=== PATIENT | female | born 1955 | race Caucasian/White ===

== ENCOUNTER 2019-03-29 13:11 | Emergency (ER) | payer SELFPAY ==
[2019-03-29 13:26] VITALS: BP 153/83; PULSE 108; RESP 20; TEMP 36.9; O2SAT 99
--- NOTE | 2019-03-29 13:31 | ED.GENADULT ---
HPI - General Adult General Chief complaint: Upper Respiratory Infection Stated complaint: congestion Time Seen by Provider: 03/29/19 13:31 Source: patient and RN notes reviewed Mode of arrival: ambulatory Limitations: no limitations History of Present Illness HPI narrative: This patient's had onset on 03/26/2019 of sinus symptoms with green nasal drainage and pressure above and below the eyes bilaterally. She is not really had a cough. She has had no chest pain no shortness of breath. She is not had any ear pain or drainage from the ears. There is been no nausea, no vomiting, no diarrhea. She has had no hematuria, no dysuria, and no pyuria. She has had no rashes. Has not been traveling. She has had no known exposure to anyone with strep throat, mono, influenza, bronchitis, pneumonia that she is aware of. He states that she does use CPAP. He states she has no history of asthma. Related Data Allergies Allergy/AdvReac Type Severity Reaction Status Date / Time Penicillins Allergy Unknown Rash Verified 03/29/19 13:33 Review of Systems Review of Systems: Narrative: CONSTITUTIONAL: Denies fever, chills, or sweats. Noncontributory except as pertains the past medical history and history of present illness. EYES: Denies visual changes, redness, or discharge. ENT: Denies rhinorrhea, congestion, sore throat, or otalgia. CARDIOVASCULAR: Denies chest pain, palpitations, or edema. RESPIRATORY: Denies cough or dyspnea. GASTROINTESTINAL: Denies abdominal pain, nausea, vomiting, or diarrhea. GENITOURINARY: Denies dysuria or hematuria. SKIN: Denies rash or itching. MUSCULOSKELETAL: Denies back pain, joint pain, or myalgia. NEUROLOGIC: Denies headache, numbness, or weakness. PSYCHIATRIC: Denies anxiety or depression. PMFSH Social History Social History Smoking status: Never smoker Alcohol intake: never Gender identity (if verbalized by the patient): Female Comments At time of signature, I have reviewed and agree with nursing past medical, surgical, social, and family history.Please see nursing chart for further information. There is no relevant family history pertinent to the presenting complaint. Exam Narrative: Exam Narrative: GENERAL: Well-appearing, well-nourished, and in no acute distress. HEAD: Normocephalic, atraumatic. There is no palpation tenderness over the frontal, maxillary, or mastoid sinus areas. EYES: PERRLA and EOMI. EARS: TMs are clear bilaterally and the canals are clear. NOSE: Nares are edematous with purulent rhinorrhea with postnasal drip. THROAT:Mucous membranes moist.Oropharynx Normal without erythema or exudates. NECK: Supple. No adenopathy of the neck, supraclavicular, axillary, or inguinal areas. RESPIRATORY: No respiratory distress. Airway patent. Respirations non-labored. There are no wheezes, no rales, no retractions, no use of accessory muscle respirations. Patient is not cyanotic and not dyspneic. Her pulse ox on room air is 99% current temperature is 98.5. HEART: Regular rate and rhythm. No murmur heard. Normal peripheral pulses. ABDOMEN: Soft, nontender, nondistended, normal active bowel sounds.No masses. No rebound or guarding, No organomegaly. There is no CVA pain. No pain McBurney's point. The patient is a negative Torres sign and negative Rovsing sign. There are no pulsatile masses no audible bruits EXTREMITIES: No clubbing/cyanosis/ edema. Normal strength & range of motion. SKIN: Warm, dry.Normal color. No skin rash or skin lesions. Patient is well-nourished well-hydrated has moist mucous membranes no tenting of the skin NEURO: Alert and oriented. CN 2-12 grossly intact. No focal deficits. PSYCH: Normal mood and affect. Course Vital Signs Vital signs: Vital Signs Temperature 36.9 C 03/29/19 13:26 Pulse Rate 108 H 03/29/19 13:26 Respiratory Rate 20 03/29/19 13:26 Blood Pressure 153/83 H 03/29/19 13:26 Pulse Oximetry 99 03/29/19 13:26 Temperature 36.9 C 03/29/19 13:2
== END 2019-03-29 13:45 | disposition home or self-care (01) ==
PROVIDERS: Emergency Provider Family Medicine; PCP Family Medicine
DX: J01.10 Acute frontal sinusitis, unspecified (principal); I10 Essential (primary) hypertension
CPT/HCPCS: 99203; G0463

== ENCOUNTER 2019-04-06 15:49 | Emergency (ER) | payer SELFPAY ==
--- NOTE | ~2019-04-06 | CT_ITS ---
EXAMINATION: CT abdomen pelvis wo con DATE: 04/06/2019 19:55 INDICATION: Left flank pain. Nephrolithiasis. TECHNIQUE: Computed tomography (CT) of the abdomen and pelvis was performed without intravenous contr ast. Automated exposure control and iterative reconstruction technique were employed. The dose-length product was 442.77 mGy-cm. COMPARISON: 07/16/2012 FINDINGS: Are several small calcified nodules in the bilateral lower lungs along with calcified right hilar and mediastinal lymph nodes consistent with old granulomatous disease. Heart size is normal. No pericard ial or pleural effusion. Diffuse hepatic steatosis. Cholecystectomy clips the gallbladder fossa. Mult iple splenic ossifications consistent with old granulomatous disease. Pancreas, bilateral adrenal gla nds and right kidney are normal. 5 stones in the lower pole calyces of the left kidney measuring betw een 2 mm and 7 mm. There is an additional 5 mm stone at the infundibulum of a posterior lower pole ca lyx of the left kidney. No stones seen along the course of ureters. No hydronephrosis. Bladder is nor mal. The uterus is not identified and has likely been surgically resected. Mild scattered colonic div erticulosis without adjacent inflammatory change to suggest diverticulosis. Small bowel and appendix are normal. No free intraperitoneal gas or fluid. No pathologically enlarged abdominal or pelvic lymp hadenopathy. Mild lumbar levocurvature mild degenerative disc disease and moderate to severe lower alesha mbar facet osteoarthritis. IMPRESSION: 1. Nonobstructing right nephrolithiasis. No ureteral stones. 2. Diffuse hepatic steatosis. Reviewed, dictated and finalized at location A. RECRUITER
[2019-04-06 16:24] VITALS: BP 169/87; PULSE 109; RESP 24; TEMP 36.3; O2SAT 97
[2019-04-06 16:49] LABS: Basophils Absolute Auto 0.1 K/mm3 (0.0-0.1); Basophils Percent Auto 0.7 % (0.2-1.2); Eosinophils Absolute Auto 0.2 K/mm3 (0-0.3); Eosinophils Percent Auto 1.2 % (0-4.4); Hematocrit 47.3 % (37.0-47.0); Hemoglobin 15.7 g/dL (12.0-15.0); Immature Granulocyte Absolute 0.13 K/mm3 (0.00-0.031); Immature Granulocyte Percent A 1.1 % (0-0.5); Lymphocytes Absolute Auto 3.09 K/mm3 (0.9-3.2); Lymphocytes Percent Auto 25.1 % (18.3-44.2); Mean Corpuscular HGB Conc 33.2 g/dl (32-36); Mean Corpuscular Hemoglobin 29.1 pg (26-34); Mean Corpuscular Volume 87.8 fl (80-100); Mean Platelet Volume 9.3 fl (7.4-10.4); Monocytes Absolute Auto 0.8 K/mm3 (0.1-0.6); Monocytes Percent Auto 6.3 % (2.6-8.5); Neutrophils Absolute Auto 8.1 K/mm3 (1.3-6.7); Neutrophils Percent Auto 65.6 % (45.5-73.1); Platelet Count Result 348 k/mm3 (150-375); Red Blood Count 5.39 M/mm3 (4.2-5.4); Red Cell Distribution Width 12.3 % (11.5-14.5); White Blood Count 12.3 K/mm3 (4.5-10.0)
[2019-04-06 17:00] LABS: Blood Urea Nitrogen 17 mg/dL (7-17); Calcium 9.3 mg/dL (8.4-10.2); Carbon Dioxide 27 mmol/L (22-30); Chloride 97 mmol/L (98-107); Estimated CRCL calculation 88 ml/min; Estimated Glomerular Filt Rate > 60; Glucose 162 mg/dL (65-105); Sodium 136 mmol/L (137-145)
[2019-04-06 17:17] VITALS: BP 215/102; PULSE 103; RESP 18; O2SAT 100
[2019-04-06 17:35] LABS: Add Urine Microscopic? YES; Appearance Urine Clear (Clear); Bacteria Urine Trace /hpf; Bilirubin Urine Negative (Negative); Blood Urine 2+ (Negative); Color Urine Yellow (Yellow); Glucose Urine UA Negative (Negative); Ketones Urine Trace mg/dL (Negative); Leukocyte Esterase Ur 3+ LEU/UL (Negative); Mucus Urine Rare /lpf; Nitrate Urine Negative (Negative); Protein Urine 1+ mg/dL (Negative); RBC Urine >75 /hpf (0-2); Specific Grav Ur 1.017 (1.001-1.035); Squamous Epithelial Cell Urine Few /hpf (Few); Urobilinogen Urine Negative mg/dL (<2.0)
[2019-04-06] MEDS: KETOROLAC 30 MG/ML VIAL (*BKC) IV PUSH (17:43)
--- NOTE | 2019-04-06 17:51 | ED.FEMALEGU ---
HPI - Female Genitourinary General Chief complaint: Urogenital-Female Stated complaint: possible kidney stone. Time Seen by Provider: 04/06/19 17:30 Source: patient and RN notes reviewed Mode of arrival: ambulatory Limitations: no limitations History of Present Illness HPI Narrative: A 63 y/o female, with a hx of multiple kidney stones, presents to the ED with sharp, severe, 10/10, lt flank pain beginning acutely 2.5 hours ago. She reports associated N/V, sweats, chills, and dysuria. She notes that the pain and symptoms are similar to the symptoms she had with her pervious kidney stones. She also notes that her Urologist is Dr. Connell. She denies any fevers, CP, SOB, diarrhea, and any other medical complaints at this time. MD elicited complaint: flank pain (lt) Pertinent past history: tubal ligation, hysterectomy and other (kidney stones) Onset (ago): hour(s) (2.5) Location of symptoms: flank (lt) Severity: severe Severity scale (1-10): 10 Quality of pain: sharp Urinary symptoms: Dysuria Associated symptoms: chills, nausea, vomiting and other (sweats) Related Data Allergies Allergy/AdvReac Type Severity Reaction Status Date / Time Penicillins Allergy Unknown Rash Verified 03/29/19 13:33 Review of Systems Review of Systems: All systems reviewed & are unremarkable except as noted in HPI and below Constitutional: Constitutional: Reports chills, Denies fever(s), Denies headache(s), Denies weakness and Reports other (sweats) Eyes: Eyes: Denies blurry vision ENT: Denies headache(s) and Denies neck pain Cardiovascular: Cardiovascular: Denies chest pain and Denies dyspnea Respiratory: Respiratory: Denies cough and Denies dyspnea Gastrointestinal: Gastrointestinal: Denies abdominal pain, Denies diarrhea, Reports nausea and Reports vomiting Genitourinary: Genitourinary: Denies hematuria, Reports dysuria and Reports flank pain (lt) Musculoskeletal: Musculoskeletal: Denies back pain and Denies neck pain Neurologic: Denies headache(s) and Denies weakness PMFSH Past Medical History Medical History (Updated 04/07/19 @ 00:00 by Background Daemon) Anemia Arm fracture, left Arthritis Bulging discs Depression Diverticulitis GERD (gastroesophageal reflux disease) H/O: HTN (hypertension) History of kidney stones Multiple. Hx: UTI (urinary tract infection) Hypercholesteremia Sleep apnea Ulcer Surgical History Surgical History (Updated 04/06/19 @ 18:49 by Jose Ziegler) History of cholecystectomy History of hysterectomy History of lithotripsy x5. History of permanent cardiac pacemaker placement History of tonsillectomy Hx of tubal ligation Social History Social History Smoking status: Never smoker Alcohol intake: never Gender identity (if verbalized by the patient): Male Comments PCP: Dr. Lester. Exam Const: General: no acute distress and well developed Orientation/consciousness: oriented to person, oriented to place, oriented to time and patient oriented x3 HENMT: Head: normocephalic Ears: external ears normal General nose exam: Normal external nose present Eyes: General: appearance normal, both eyes and all related structures Conjunctivae: conjunctivae normal Neck: Neck: normal visual inspection and full ROM Chest: Chest palpation & inspection: normal inspection of the chest and no tenderness Resp: Effort & Inspection: normal respiratory effort Auscultation: clear to auscultation bilaterally Cardio: Rate: regular rate Rhythm: regular rhythm GI: GI Palp: No abdominal tenderness and Yes Soft to palpation Skin: General skin exam: normal color and turgor normal Neuro: General: oriented to person, oriented to place, oriented to time and patient oriented x3 Cognition (Neuro): normal cognition Extrem: General: normal to inspection, full ROM and no pedal edema Psych: Appearance: grossly normal Mental Status: mental status grossly normal Affect: normal affect Course Vital Signs Vital
[2019-04-06] MEDS: SODIUM CHLORIDE 0.9% IV 1,000 ML 999 ML IV CONT (18:16)
[2019-04-06 20:00] VITALS: BP 144/76; PULSE 89; RESP 18; O2SAT 98
--- NOTE | 2019-04-21 11:18 | PC.NURSE ---
LATE ENTRY This note is being entered to document information to the patient's record. The following information was omitted on [04/06/2019], by [Amalia Liz RN. Patient's normal saline finished at 1912.].
--- NOTE | 2023-01-07 15:08 | AMEND_ITS ---
This addendum is being added to clarify the patient's surgical history of History of permanent cardiac pacemaker placement was documented in error and has been removed from this patient's records on December 30 at 14:47 by Rinku Lester MD. TRAVIS
== END 2019-04-06 21:00 | disposition home or self-care (01) ==
PROVIDERS: Emergency Medicine; Emergency Provider Emergency Medicine; PCP Family Medicine
DX: R10.9 Unspecified abdominal pain (principal); I10 Essential (primary) hypertension; M19.90 Unspecified osteoarthritis, unspecified site; K21.9 Gastro-esophageal reflux disease without esophagitis; E78.00 Pure hypercholesterolemia, unspecified; G47.30 Sleep apnea, unspecified; Z95.0 Presence of cardiac pacemaker; Z87.440 Personal history of urinary (tract) infections; K76.0 Fatty (change of) liver, not elsewhere classified; Z87.442 Personal history of urinary calculi; N20.0 Calculus of kidney
CPT/HCPCS: 36415; 74176; 80048; 81001; 85025; 87086; 96361; 96374; 99284; J1885; J7030

== ENCOUNTER 2019-07-31 08:04 | Day surgery (SDC) | payer SELFPAY ==
[2019-07-31] VITALS (12 sets, daily range): BP systolic 112–174; BP diastolic 59–98; PULSE 96–110; RESP 12–20; TEMP 36.3–37.3; O2SAT 95–99
--- NOTE | ~2019-07-31 | CT_ITS ---
EXAMINATION: CT abdomen pelvis wo con DATE: 07/31/2019 08:49 INDICATION: Left flank pain. Vomiting. TECHNIQUE: Computed tomography (CT) of the abdomen and pelvis was performed without intravenous contr ast. Automated exposure control and iterative reconstruction technique were employed. The dose-length product was 336.32 mGy-cm. COMPARISON: CT abdomen and pelvis 04/06/2019 FINDINGS: The visualized portions of the lung bases demonstrate mild atelectasis. Calcified left lung nodules are consistent with old granulomatous disease. No pleural effusion. The heart size is normal . No pericardial effusion. There is a small sliding hiatal hernia. There is diffuse hepatic steatosis . There are changes of cholecystectomy. Calcifications in the spleen are consistent with old granulom atous disease. The pancreas, adrenal glands, and right kidney are normal. There are approximately 6 s tones in left kidney measuring up to 7 mm. There is moderate left hydronephrosis. There is a 6 mm sto ne at left ureteropelvic junction. There is diverticulosis of the colon without evidence of diverticu litis. There are no dilated loops of bowel. The appendix is normal. There are no pathologically enlar ged lymph nodes. There is no free intraperitoneal fluid. There is mild thoracolumbar spondylosis. IMPRESSION: 1. 6 mm stone at left ureteropelvic junction with moderate left hydronephrosis. 2. Nonobstructing left kidney stones. Reviewed, dictated and finalized at location A.
--- NOTE | ~2019-07-31 | XR_ITS ---
XR abdomen/kub 1V 07/31/2019 10:04 Indication: Left flank pain Procedure: KUB Comparison: Comparison to multiple prior studies sequentially, with oldest reviewed study dated 11/27 2014. Findings: There are multiple left renal stones. There is a stone medial to the left kidney presumably in the renal pelvis measuring 7 mm. There is a phlebolith overlying the superior aspect of the sacru m on the right. Stable coarse calcifications in the pelvis, likely ovarian. Impression: 1: 7 mm calcification left lateral aspect of the L2-3 level, presumably stone in the renal pelvis. 2: Left nephrolithiasis. Reviewed, dictated and finalized at location A. Impression: 1: 7 mm calcification left lateral aspect of the L2-3 level, presumably stone i n the renal pelvis. 2: Left nephrolithiasis.
--- NOTE | ~2019-07-31 | XR_ITS ---
EXAMINATION: XR retrograde pyelo w/stent LT DATE: 07/31/2019 14:04 INDICATION: Left internal ureteral stent placement TECHNIQUE: Fluoroscopic images from a left internal ureteral stent placement are submitted for review . of fluoroscopy time. 43 fluoroscopic images. FINDINGS: There is a left double-J internal ureteral stent projecting in expected position, with proximal [place] loop at the level of the renal pelvis and distal loop in the pelvis within the bladder lumen. IMPRESSION: 1. Left internal ureteral stent placement. Please refer to real-time procedural findings for detail s. Reviewed, dictated and finalized at location A. IMPRESSION: 1. Left internal ureteral stent placement. Please refer to real-time procedur al findings for details.
--- NOTE | 2019-07-31 08:31 | ED.GENADULT ---
HPI - General Adult General Chief complaint: Urogenital-Female Stated complaint: L FLANK PAIN, HX KIDNEY STONES Source: patient Mode of arrival: ambulatory Limitations: no limitations History of Present Illness HPI narrative: Patient is a 63-year-old female who presents for evaluation of left flank pain. Patient with a history of nephrolithiasis, states this feels very similar to kidney stone pain she has had in the past. Pain began approximately 5 AM this morning, located in the left flank with radiation to the left lower pelvis. Patient reports associated nausea, 2 episodes of nonbloody, nonbilious emesis, and difficulty with urination. No dysuria or hematuria that the patient has noticed. Patient has not had a fever, Ports feeling clammy and sweaty. No chest pain or shortness of breath. Patient follows with Dr. Almonte, has required lithotripsy, stenting ureteroscopy in the past. Related Data Allergies Allergy/AdvReac Type Severity Reaction Status Date / Time Penicillins Allergy Unknown Rash Verified 07/31/19 08:21 Review of Systems Review of Systems: Narrative: CONSTITUTIONAL: Denies fever, chills CARDIOVASCULAR: Denies chest pain, palpitations, or edema. RESPIRATORY: Denies cough or dyspnea. GASTROINTESTINAL: Reports left-sided abdominal pain, left flank pain, nausea and vomiting GENITOURINARY: Denies dysuria or hematuria. SKIN: Denies rash or itching. MUSCULOSKELETAL: Denies back pain, joint pain, or myalgia. NEUROLOGIC: Denies headache, numbness, or weakness. [facility] Past Medical History Medical History Anemia Arm fracture, left Arthritis Bulging discs Depression Diverticulitis GERD (gastroesophageal reflux disease) H/O: HTN (hypertension) History of kidney stones Multiple. Hx: UTI (urinary tract infection) Hypercholesteremia Sleep apnea Ulcer Surgical History Surgical History History of cholecystectomy History of hysterectomy History of lithotripsy x5. History of permanent cardiac pacemaker placement History of tonsillectomy Hx of tubal ligation Social History Social History Smoking status: Never smoker Alcohol intake: never Gender identity (if verbalized by the patient): Male Exam Narrative: Exam Narrative: GENERAL: Awake, alert, conversant, uncomfortable appearing HEAD: Normocephalic, atraumatic. EYES: PERRLA and EOMI. ENT: Nares clear, no rhinorrhea or epistaxis. Mucous membranes moist. NECK: Supple. CHEST: No respiratory distress, breathing even and non labored HEART: Tachycardic rate, sinus rhythm ABDOMEN:Non distended, left-sided CVA tenderness EXTREMITIES: Normal range of motion. No edema. SKIN: Warm, dry, no rash. NEURO:No focal deficits. Alert and oriented x3 Course Vital Signs Vital signs: Vital Signs Temperature 37.3 C 07/31/19 08:16 Pulse Rate 110 H 07/31/19 08:16 Respiratory Rate 20 07/31/19 08:16 Blood Pressure 160/98 H 07/31/19 08:16 Pulse Oximetry 99 07/31/19 08:16 Temperature 37.3 C 07/31/19 08:16 Pulse Rate 101 H 07/31/19 10:49 Respiratory Rate 16 07/31/19 10:49 Blood Pressure 169/89 H 07/31/19 10:49 Pulse Oximetry 98 07/31/19 10:49 Medical Decision Making MDM Narrative Medical decision making narrative: Patient presented to the emergency department for evaluation of left-sided flank pain. Patient with history of nephrolithiasis. At the time of initial assessment, patient is uncomfortable appearing, nauseated, tachycardic. Afebrile. Laboratory results reassuring, no leukocytosis, no kidney injury. No UTI. Patient does have a 6 mm left upj stone with moderate hydronephrosis. Urology was consulted, patient will be taken to the OR from the ER. Patient was made n.p.o. She was transferred to the OR in stable condition. Differential Diagnosis Differential Diag
[2019-07-31 08:42] LABS: Basophils Absolute Auto 0.1 K/mm3 (0.0-0.1); Basophils Percent Auto 0.8 % (0.2-1.2); Eosinophils Absolute Auto 0.1 K/mm3 (0-0.3); Eosinophils Percent Auto 1.7 % (0-4.4); Hematocrit 44.4 % (37.0-47.0); Immature Granulocyte Absolute 0.03 K/mm3 (0.00-0.031); Immature Granulocyte Percent A 0.4 % (0-0.5); Lymphocytes Absolute Auto 2.62 K/mm3 (0.9-3.2); Lymphocytes Percent Auto 31.3 % (18.3-44.2); Mean Corpuscular HGB Conc 33.8 g/dl (32-36); Mean Corpuscular Hemoglobin 30.1 pg (26-34); Mean Platelet Volume 9.8 fl (7.4-10.4); Monocytes Absolute Auto 0.7 K/mm3 (0.1-0.6); Monocytes Percent Auto 8.4 % (2.6-8.5); Neutrophils Absolute Auto 4.8 K/mm3 (1.3-6.7); Neutrophils Percent Auto 57.4 % (45.5-73.1); Platelet Count Result 320 k/mm3 (150-375); Red Blood Count 4.99 M/mm3 (4.2-5.4); Red Cell Distribution Width 12.3 % (11.5-14.5); White Blood Count 8.4 K/mm3 (4.5-10.0)
[2019-07-31 08:51] LABS: Add Urine Microscopic? YES; Appearance Urine Cloudy (Clear); Bacteria Urine Trace /hpf; Bilirubin Urine Negative (Negative); Blood Urine 3+ (Negative); Budding Yeast Urine Present /hpf; Calcium Oxalate Crystals Urine Present /hpf; Color Urine Yellow (Yellow); Glucose Urine UA Negative (Negative); Ketones Urine Negative (Negative); Leukocyte Esterase Ur Negative LEU/UL (Negative); Mucus Urine Few /lpf; Nitrate Urine Negative (Negative); Protein Urine 2+ mg/dL (Negative); RBC Urine >75 /hpf (0-2); Specific Grav Ur 1.024 (1.001-1.035); Squamous Epithelial Cell Urine Many /hpf (Few); Transitional Epi Cells Urine Rare /hpf (None Seen); Urobilinogen Urine Negative mg/dL (<2.0)
[2019-07-31] MEDS: SODIUM CHLORIDE 0.9% IV 1,000 ML 999 ML IV CONT (08:56)
[2019-07-31] MEDS: ONDANSETRON INJ 4 MG/2 ML VIAL IV PUSH (08:56)
[2019-07-31] MEDS: MORPHINE SULFATE 4 MG/ML INJ IV PUSH ×2 (08:56→11:38)
[2019-07-31 09:02] LABS: Blood Urea Nitrogen 15 mg/dL (7-17); Calcium 9.5 mg/dL (8.4-10.2); Carbon Dioxide 27 mmol/L (22-30); Chloride 101 mmol/L (98-107); Estimated CRCL calculation 78 ml/min; Estimated Glomerular Filt Rate > 60; Glucose 190 mg/dL (65-105); Potassium 3.7 mmol/L (3.4-5.0); Sodium 138 mmol/L (137-145)
[2019-07-31] MEDS: HYDROMORPHONE HCL 1 MG/ML INJ 0.5 MG IV PUSH (09:57)
[2019-07-31] MEDS: METOCLOPRAMIDE HCL INJ 10 MG/2 ML VIAL IV PUSH (09:57)
--- NOTE | 2019-07-31 11:13 | ECG_ITS ---
Measurements Intervals [place] Rate: 103 P: 23 IL: 156 QRS: -14 QRSD: 104 T: 8 QT: 339 QTc: 446 Interpretive Statements SINUS TACHYCARDIA BORDERLINE R WAVE PROGRESSION, ANTERIOR LEADS BORDERLINE T WAVE ABNORMALITY- INFERIOR LEADS ABNORMAL ECG Electronically Signed On 07-31-2019 11:40:07 CDT by Richard Toussaint D.O.
--- NOTE | 2019-07-31 11:22 | PC.NURSE ---
Report given to Nancy BARRIENTOS.
[2019-07-31] MEDS: LACTATED RINGERS 1,000 ML 30 ML IV CONT (11:25)
[2019-07-31] MEDS: SODIUM CHLORIDE 0.9% IV 1,000 ML 150 ML IV CONT (11:38)
--- NOTE | 2019-07-31 11:47 | WPDURCON ---
Assessment and Plan Assessment and plan (1) Ureteropelvic junction (UPJ) obstruction, left: Code(s): N13.5 - Crossing vessel and stricture of ureter without hydronephrosis Status: Acute Assessment and Plan: Plan to go to OR today: Cystoscopy, left ureteroscopy with stent placement, left retrograde pyelogram. Keep NPO. Obtain Consent. Patient will then be treated with a Left Lithotripsy as an outpatient in a few weeks. (2) Left renal stone: Code(s): N20.0 - Calculus of kidney Status: Acute Assessment and Plan: Will monitor as an outpatient. Urology Consult Note HPI Date Seen: 07/31/19 Requesting Physician: Alex Pate MD Primary Care Provider: Rinku Lester MD Consult Narrative Narrative: Shayna Swenson is a 63 year old female who presents to the ER this morning for worsening left flank pain, nausea, vomiting, hematuria and dysuria that developed this morning around 0500. She denies fever, chills or abdominal pain. She has a long history of kidney stones and has been under the care of Dr. Connell for those. She has a WBC of 8.4, creatinine is 0.70, UA shows RBC's present, no nitrites or leukocytes, although a urine culture has been sent. She is afebrile, but is slighty tachycardic and hypertensive. Her CT scan this morning shows a 6mm left UPJ stone with left hydronephrosis and left non obstructive renal stones. KUB is positive for left UPJ stone. Her pain is a 10/10 even after receiving Morphine and Dilaudid. Review of Systems Cardiovascular: Cardiovascular: Denies chest pain Respiratory: Respiratory: Reports no additional respiratory complaints Gastrointestinal: Gastrointestinal: Denies abdominal pain, Reports nausea and Reports vomiting Genitourinary: Genitourinary: Reports hematuria, Reports dysuria and Reports flank pain PMFSH Past Medical History Medical History Anemia Arm fracture, left Arthritis Bulging discs Depression Diverticulitis GERD (gastroesophageal reflux disease) H/O: HTN (hypertension) History of kidney stones Multiple. Hx: UTI (urinary tract infection) Hypercholesteremia Sleep apnea Ulcer Surgical History Surgical History History of cholecystectomy History of hysterectomy History of lithotripsy x5. History of permanent cardiac pacemaker placement History of tonsillectomy Hx of tubal ligation Social History Social History Smoking status: Never smoker Alcohol intake: never Gender identity (if verbalized by the patient): Male Meds Home Medications and Allergies Home Medications Medication Instructions Recorded Confirmed Type clarithromycin 500 mg PO Q12H 10 Days #20 tablet 03/29/19 07/31/19 Rx methylprednisolone [Medrol (Yony)] See Rx Instructions .ROUTE 03/29/19 07/31/19 Rx .COMPLEX #1 each ketorolac 10 mg PO Q6H PRN 5 Days #10 tablet 04/06/19 07/31/19 Rx Allergies Allergy/AdvReac Type Severity Reaction Status Date / Time Penicillins Allergy Unknown Rash Verified 07/31/19 08:21 Vital Signs Vital Signs - 24 hr 07/31/19 08:16 07/31/19 09:42 07/31/19 10:49 Temperature 99.1 F Pulse Rate 110 H 99 101 H Respiratory Rate 20 17 16 Blood Pressure 160/98 H 158/79 H 169/89 H Pulse Oximetry 99 95 98 Exam Resp: Effort & Inspection: tachypneic Cardio: Rate: tachycardic GI: GI Palp: Yes Tenderness to palpation present (GI) (LLQ) : General: Yes CVA tenderness on the left Results Labs CBC & Chem 7: 07/31/19 08:24 07/31/19 08:24 Labs: Short CBC 07/31/19 Range/Units 08:24 WBC 8.4 (4.5-10.0) K/mm3 Hgb 15.0 (12.0-15.0) g/dL Hct 44.4 (37.0-47.0) % Plt Count 320 (150-375) k/mm3 BMP 07/31/19 08:24 Sodium 138 Potassium 3.7 Chloride 101 Carbon Dioxide 27 BUN 15 Creat
--- NOTE | 2019-07-31 12:38 | WPDANESEPPF ---
Anes - Initial Pre Proc Eval Procedure: Operation Date: 07/31/19 14:30 Proposed Procedures p CYSTOSCOPY,LEFT STENT PLACEMENT - Alex Pate MD Date/Time: 07/31/19 12:38 Surgeon: Alex Pate MD Pre Op Diagnosis: L FLANK PAIN, HX KIDNEY STONES Patient Data Age: 63 Gender: F Height: 1.6 m Weight: 97 kg Last Vital Signs Temp 37.3 C 07/31/19 08:16 Pulse 98 07/31/19 12:05 Resp 20 07/31/19 12:05 BP 169/89 H 07/31/19 10:49 Pulse Ox 98 07/31/19 12:05 Allergies Allergy/AdvReac Type Severity Reaction Status Date / Time Penicillins Allergy Unknown Rash Verified 07/31/19 08:21 Home Medications Medication Instructions Recorded Confirmed Type clarithromycin 500 mg PO Q12H 10 Days #20 tablet 03/29/19 07/31/19 Rx methylprednisolone [Medrol (Yony)] See Rx Instructions .ROUTE 03/29/19 07/31/19 Rx .COMPLEX #1 each ketorolac 10 mg PO Q6H PRN 5 Days #10 tablet 04/06/19 07/31/19 Rx omeprazole 10 mg PO DAILY 07/31/19 07/31/19 History Laboratory Tests 07/31/19 07/31/19 07/31/19 08:24 08:24 08:25 WBC 8.4 K/mm3 K/mm3 (4.5-10.0) RBC 4.99 M/mm3 M/mm3 (4.2-5.4) Hgb 15.0 g/dL g/dL (12.0-15.0) Hct 44.4 % % (37.0-47.0) MCV 89.0 fl fl (80-100) MCH 30.1 pg pg (26-34) MCHC 33.8 g/dl g/dl (32-36) RDW 12.3 % % (11.5-14.5) Plt Count 320 k/mm3 k/mm3 (150-375) MPV 9.8 fl fl (7.4-10.4) Immature Gran % (Auto) 0.4 % % (0-0.5) Neut % (Auto) 57.4 % % (45.5-73.1) Lymph % (Auto) 31.3 % % (18.3-44.2) [place] % (Auto) 8.4 % % (2.6-8.5) Eos % (Auto) 1.7 % % (0-4.4) Baso % (Auto) 0.8 % % (0.2-1.2) Lymph # (Auto) 2.62 K/mm3 K/mm3 (0.9-3.2) [place] # (Auto) 0.7 K/mm3 H K/mm3 (0.1-0.6) Eos # (Auto) 0.1 K/mm3 K/mm3 (0-0.3) Baso # (Auto) 0.1 K/mm3 K/mm3 (0.0-0.1) Abs Immat Gran (auto) 0.03 K/mm3 K/mm3 (0.00-0.031) Absolute Neuts (auto) 4.8 K/mm3 K/mm3 (1.3-6.7) Absolute Nucleated RBC 0.0 K/mm3 K/mm3 (0.0-0.012) Nucleated RBC % 0.0 % % (0.0-0.2) Sodium 138 mmol/L mmol/L (137-145) Potassium 3.7 mmol/L mmol/L (3.4-5.0) Chloride 101 mmol/L mmol/L (98-107) Carbon Dioxide 27 mmol/L mmol/L (22-30) BUN 15 mg/dL mg/dL (7-17) Creatinine 0.70 mg/dL mg/dL (0.7-1.0) Estim Creat Clear Calc 78 ml/min ml/min Estimated GFR > 60 (59 - ) Glucose 190 mg/dL H mg/dL (65-105) Calcium 9.5 mg/dL mg/dL (8.4-10.2) Urine Color Yellow (Yellow) Urine Appearance Cloudy H (Clear) Urine pH 5.0 (5.0-9.0) Ur Specific [place] 1.024 (1.001-1.035) Urine Protein 2+ mg/dL H mg/dL (Negative) Urine Glucose (UA) Negative mg/dL mg/dL (Negative) Urine Ketones Negative mg/dL mg/dL (Negative) Ur Blood (Man) 3+ H (Negative) Urine Nitrate Negative (Negative) Urine Bilirubin Negative (Negative) Urine Urobilinogen Negative mg/dL mg/dL (<2.0) Leukocyte Esterase Rfl Negative [place]/UL SAL[place]OR/UL (Negative) Urine RBC >75 /hpf H /hpf (0-2) Urine WBC 7-9 /hpf H /hpf Ur Squamous Epith Cells Many /hpf H /hpf (Few) Ur Transition Epith Cell Rare /hpf /hpf (None Seen) Calcium Oxalate Crystal Present /hpf /hpf (None) Urine Bacteria Trace /hpf /hpf Hyaline Casts 5-9 /lpf H /lpf (None) Urine Mucus Few /lpf H /lpf Urine Yeast (Budding) Present /hpf H /hpf (None) ECG: Date of Service: 07/31/19 Procedure(s): CA 12 lead EKG Accession Number(s): [id number] cc: ~ Measurements Intervals
[2019-07-31] MEDS: ceFAZolin 2 GM/D5W 50 ML 2 GM/50 ML BAG IVPB (13:44)
--- NOTE | 2019-07-31 14:03 | PM.PROC ---
Procedure Note - Detailed Date of procedure: 07/31/19 Pre-op diagnosis: L FLANK PAIN, HX KIDNEY STONES Post-op diagnosis: same Procedure performed: Cystoscopy, left retrograde pyelogram, left ureteral stent placement 4.8 [place] contour Description of procedure: Patient was taken to the operative suite and correctly identified. Once anesthesia was obtained she was placed in the dorsal lithotomy position and prepped and draped in the usual sterile fashion. Twenty-two [place] scope was inserted into the bladder. There are no tumors noted. Left ureteral orifice was cannulated with a [place] and pyelogram was performed. The stone was visualized at the UPJ area. It may have flushed back to the kidney. A guidewire was then inserted with the proximal end in the renal pelvis. A 4.8 contour stent was then placed with the proximal end coiled in the renal pelvis and the distal in the bladder. Bladder was drained 2% viscous lidocaine was inserted urethra in patient is taken recovery room stable condition. She will be discharged home with pain med and antibiotic. She tells me she is in the midst of obtaining insurance would like to hold off on lithotripsy until least August 28 Anesthesia: GLMA Surgeon: Alex Pate MD Drains: Yes Packing: No Pathology: none sent Complications: No immediate complications Condition: stable Disposition: PACU
[2019-07-31] MEDS: LIDOCAINE HCL 2% GEL UROJET 10 ML PKG MUCOUS MEM (14:14)
--- NOTE | 2019-07-31 15:20 | SUR.PHASEII ---
1520 spoke with and updated him on pt condition
== END 2019-07-31 16:00 | disposition home or self-care (01) ==
LOC: ANHED 11:00 → ANHSURGERY 11:09
PROVIDERS: Emergency Provider Emergency Medicine; PCP Family Medicine; Visit Provider Urology
PROC: (CPT 52352; principal; 2019-07-31 14:30)
DX: N13.2 Hydronephrosis with renal and ureteral calculous obstruction (principal)
CPT/HCPCS: 52332; 36415; 74018; 74176; 74420; 80048; 81001; 85025; 87086; 87088; 93005; 96361; 96365; 96375; 96376; 99285; A9270; C1758; C1769; C2617; J0131; J0690; J1100; J1170; J2250; J2270; J2405; J2704; J2765; J3010; J7030; J7120; Q9966

== ENCOUNTER 2019-09-18 10:20 | Outpatient (CLI) | payer MEDICARE, SELFPAY ==
[2019-09-18 11:12] LABS: Prothrombin Time 13.1 Seconds (11.1-14.7)
[2019-09-18 11:13] LABS: Partial Thromboplastin Time 26.6 SECONDS (22.3-36.8)
== END 2019-09-18 10:21 | disposition home or self-care (01) ==
PROVIDERS: PCP Family Medicine; Visit Provider Urology
DX: Z01.818 Encounter for other preprocedural examination (principal); N20.0 Calculus of kidney
CPT/HCPCS: 36415; 85610; 85730; 87086; 87088

== ENCOUNTER → 2019-09-20 13:33 | Outpatient (CLI) | payer MEDICARE, SELFPAY ==
--- NOTE | ~2019-09-20 | US_ITS ---
. EXAMINATION: US soft tissue head and neck DATE: 09/20/2019 13:44 INDICATION: Left neck lump. TECHNIQUE: Multiple grayscale ultrasound images of the left neck were obtained. COMPARISON: None FINDINGS: There is no abnormal mass or lymphadenopathy in the patient's area of concern in the left n freida. IMPRESSION: 1. No abnormal mass or lymphadenopathy in the patient's area of concern in the left neck. Reviewed, dictated and finalized at location A.
== END ==
PROVIDERS: PCP Family Medicine; Visit Provider Nurse Practitioner Family
DX: R22.1 Localized swelling, mass and lump, neck (principal)
CPT/HCPCS: 76536

== ENCOUNTER 2019-09-26 00:50 | Outpatient (CLI) | payer MEDICARE, SELFPAY ==
[2019-09-26 19:19] LABS: SARS-CoV-2 RNA PCR Negative
== END 2019-09-26 00:51 | disposition home or self-care (01) ==
LOC: ANHCOVIDDT 00:50
PROVIDERS: PCP Family Medicine; Visit Provider Urology
DX: Z01.812 Encounter for preprocedural laboratory examination (principal); Z11.59 Encounter for screening for other viral diseases
CPT/HCPCS: 87635; C9803; U0003

== ENCOUNTER 2019-09-28 02:03 | Day surgery (SDC) | payer MEDICARE, SELFPAY ==
[2019-09-12 09:52] VITALS: BMI 36.1
--- NOTE | ~2019-09-28 | XR_ITS ---
EXAMINATION: XR abdomen/kub 1V EXAM DATE: 09/28/2019 06:14 INDICATION: Left nephrolithiasis, for lithotripsy. TECHNIQUE: Frontal projection(s) of the abdomen for interpretation. Comparison is made to prior exami nation from 07/31/2019. FINDINGS: There is a left-sided double-J ureteral stent in position. There is suspected to be a calc ific density within the loop of the ureteral stent which could be nephrolithiasis. There are other la rger inferior calyceal stones. Other pelvic calcifications are unchanged. Nonobstructive bowel gas pa ttern. IMPRESSION: 1. Left nephrolithiasis. 2. Stent in position. Reviewed, dictated and finalized at location A.
[2019-09-28 06:30] VITALS: BP 144/77; PULSE 85; RESP 16; TEMP 36.2; O2SAT 97
[2019-09-28] MEDS: LACTATED RINGERS 1,000 ML 30 ML IV CONT (06:45)
--- NOTE | 2019-09-28 06:45 | WPDHPUPDATE1 ---
History and Physical Update Update Date/Time: 09/28/19 06:45 History and Physical has been reviewed, including an updated exam of the patient. There are NO changes in the patient's condition. Risks, benefits, and alternatives have been discussed and questions answered. Patient agrees to proceed with procedure.
--- NOTE | 2019-09-28 06:48 | P.HP_ITS ---
History of Present Illness History of Present Illness Consent: Risks, benefits, and alternatives have been discussed and questions answered. Patient agrees to proceed with procedure. Chief complaint: Left Ureteral Stone Narrative: Shayna Swenson is a 64 year old female who underwent stent placement for left UPJ stone in 07/2019. She now presents for left ESWL. Denies recent fever/chills or gross hematuria. Review of Systems Cardiovascular: Cardiovascular: Denies chest pain, Denies lightheadedness, Denies palpitations and Denies dyspnea Respiratory: Respiratory: Denies dyspnea Gastrointestinal: Gastrointestinal: Denies diarrhea, Denies nausea and Denies vomiting Genitourinary: Genitourinary: Denies hematuria and Denies dysuria Endocrine: Endocrine: Denies palpitations PMFSH Past Medical History Medical History Anemia Arm fracture, left Arthritis Bulging discs Depression Diverticulitis GERD (gastroesophageal reflux disease) H/O: HTN (hypertension) History of kidney stones Multiple. Hx: UTI (urinary tract infection) Hypercholesteremia Obesity Sleep apnea Ulcer Surgical History Surgical History History of cholecystectomy History of hysterectomy History of lithotripsy x5. History of permanent cardiac pacemaker placement History of tonsillectomy Hx of tubal ligation Social History Social History Smoking status: Never smoker Alcohol intake: never Gender identity (if verbalized by the patient): Male Spiritual care concerns: No Meds Home Medications and Allergies Home Medications Medication Instructions Recorded Confirmed Type carvedilol 12.5 mg tablet 12.5 mg PO Q12H #60 tablet 09/10/19 09/12/19 Rx duloxetine 30 mg capsule,delayed 30 mg PO DAILY #14 cap 09/10/19 09/12/19 Rx release sprinkle duloxetine 60 mg capsule,delayed 60 mg PO DAILY #30 cap 09/10/19 09/12/19 Rx release tramadol 50 mg tablet 50 mg PO Q6H PRN #30 tablet 09/10/19 09/12/19 Rx rosuvastatin 20 mg tablet 20 mg PO DAILY #60 tablet 09/25/19 Rx Allergies Allergy/AdvReac Type Severity Reaction Status Date / Time Penicillins Allergy Unknown Rash Verified 09/12/19 09:54 Exam Const: General: no acute distress Resp: Effort & Inspection: normal respiratory effort GI: Inspection: non-distended GI Palp: No abdominal tenderness and No Guarding due to palpation present (GI) Auscultation: normal bowel sounds Assessment and Plan Assessment and plan (1) Left renal stone: Code(s): N20.0 - Calculus of kidney Status: Acute Assessment and Plan: * Left ESWL
--- NOTE | 2019-09-28 06:55 | WPDANESEPPF ---
Anes - Initial Pre Proc Eval Procedure: Operation Date: 09/28/19 07:30 Proposed Procedures p Left Ureteral Extracorporeal Shock Wave Lithotripsy, Possible Left Stent Exchange - Tra Connell MD Date/Time: 09/28/19 06:55 Surgeon: Tra Connell MD Pre Op Diagnosis: Left Ureteral Stone Patient Data Age: 64 Gender: F Height: 5 ft 3 in Weight: 92.53 kg Allergies Allergy/AdvReac Type Severity Reaction Status Date / Time Penicillins Allergy Unknown Rash Verified 09/12/19 09:54 Home Medications Medication Instructions Recorded Confirmed Type carvedilol 12.5 mg tablet 12.5 mg PO Q12H #60 tablet 09/10/19 09/12/19 Rx duloxetine 30 mg capsule,delayed 30 mg PO DAILY #14 cap 09/10/19 09/12/19 Rx release sprinkle duloxetine 60 mg capsule,delayed 60 mg PO DAILY #30 cap 09/10/19 09/12/19 Rx release tramadol 50 mg tablet 50 mg PO Q6H PRN #30 tablet 09/10/19 09/12/19 Rx rosuvastatin 20 mg tablet 20 mg PO DAILY #60 tablet 09/25/19 Rx Patient hx anesthesia problems: none Family hx anesthesia problems: none PMFSH Past Medical History Medical History Anemia Arm fracture, left Arthritis Bulging discs Depression Diverticulitis GERD (gastroesophageal reflux disease) H/O: HTN (hypertension) History of kidney stones Multiple. Hx: UTI (urinary tract infection) Hypercholesteremia Obesity Sleep apnea Ulcer Surgical History Surgical History History of cholecystectomy History of hysterectomy History of lithotripsy x5. History of permanent cardiac pacemaker placement History of tonsillectomy Hx of tubal ligation Social History Social History Smoking status: Never smoker Alcohol intake: never Gender identity (if verbalized by the patient): Male Spiritual care concerns: No Anes - Eval Final PreProcedure Day of Procedure 09/28/19 06:55 Patient weight: obese Heart: regular rate and rhythm Lungs: clear to auscultation Airway: Mallampati scale class III Neurological: alert and oriented Last oral intake: >/= 8 hours ASA classification: III Emergent: no Anesthetic plan: proceed Anesthesia type and monitoring: general LMA and standard monitoring Informed Consent: The patient's anesthetic plan and its attendant risks and benefits were discussed with the patient/family/POA. Questions were solicited and answers provided to the satisfaction of the patient/family/POA.
[2019-09-28] MEDS: levoFLOXacin 500 MG/D5W 100 ML 500 MG/100 ML BAG 100 MG IVPB (07:26)
--- NOTE | 2019-09-28 08:06 | PM.PROC ---
Procedure Note - Detailed Date of procedure: 09/28/19 Pre-op diagnosis: Left Ureteral Stone Post-op diagnosis: same Procedure performed: 1. Cystoscopy with left ureteral stent removal. 2. Left ESWL. Description of procedure: The patient was brought to the operative suite where she was placed in the frog-legged position on the Dornier lithotripter table. Flexible cystoscopy was undertaken with a 16F flexible cystoscopy. Her urethra and bladder neck were endoscopically normal. The bladder mucosa was normal and there was a single, orthotopic ureteral orifice bilaterally. The tip of the indwelling stent is grasped and the stent is removed with ease. The patient was then repositioned in the supine position and the focal point of the lithotriptor was first at a 6mm left renal pelvic stone and then to larger stones in the left lower pole. A total of 2500 shocks were delivered at a power setting of 4. The patient tolerated the procedure well and was taken to the recovery room in good condition. Anesthesia: GLMA Surgeon: Tra Connell MD Estimated blood loss (mL): 0 Drains: No Packing: No Pathology: none sent Complications: No immediate complications Condition: stable
[2019-09-28 08:24] VITALS: BP 163/83; PULSE 96; RESP 11; TEMP 36.4; O2SAT 100
[2019-09-28 08:35] VITALS: BP 154/68; PULSE 87; RESP 14; O2SAT 100
[2019-09-28 08:50] VITALS: BP 139/73; PULSE 90; RESP 18; O2SAT 96
[2019-09-28 08:53] VITALS: BP 143/72; PULSE 91; RESP 14
[2019-09-28 09:25] VITALS: BP 151/78; PULSE 89; RESP 14
== END 2019-09-28 09:35 | disposition home or self-care (01) ==
PROVIDERS: PCP Family Medicine; Visit Provider Urology
PROC: (CPT 50590; principal; 2019-09-28 07:30)
DX: N20.1 Calculus of ureter (principal); K21.9 Gastro-esophageal reflux disease without esophagitis; E78.00 Pure hypercholesterolemia, unspecified; G47.30 Sleep apnea, unspecified; F32.9 Major depressive disorder, single episode, unspecified; Z95.0 Presence of cardiac pacemaker; E66.9 Obesity, unspecified; Z68.35 Body mass index [BMI] 35.0-35.9, adult
CPT/HCPCS: 50590; 74018; A9270; J1956; J2250; J3010; J7030; J7120

== ENCOUNTER 2019-10-16 10:43 | Outpatient (CLI) | payer MEDICARE, SELFPAY ==
--- NOTE | ~2019-10-16 | XR_ITS ---
EXAMINATION: XR abdomen/kub 1V INDICATION: Calculus of kidney TECHNIQUE: Supine views of the abdomen were obtained on 2 radiographs. COMPARISON: 09/28/2019 FINDINGS: The left internal ureteral stent has been removed. There is interval decrease in bulk of st ones previously identified in the left kidney lower pole. The groups of stones measures [address], previously 15 mm. A 3 mm stone projects separately and left kidney lower pole. No stones are janie ntified in the right kidney or along the expected courses of the ureters or within the urinary bladde r. Phleboliths are noted in the pelvis and right mid abdomen. The bowel gas pattern is normal. Cholec ystectomy clips are noted in the right upper quadrant. IMPRESSION: 1. Decrease in stone volume in the left kidney lower pole, consistent with interval lithotripsy. Reviewed, dictated and finalized at location A. IMPRESSION: 1. Decrease in stone volume in the left kidney lower pole, consistent with inte rval lithotripsy.
== END 2019-10-16 10:44 | disposition home or self-care (01) ==
PROVIDERS: PCP Family Medicine; Visit Provider Urology
DX: N20.0 Calculus of kidney (principal)
CPT/HCPCS: 74018

== ENCOUNTER 2019-11-20 16:15 | Outpatient (CLI) | payer MEDICARE, SELFPAY ==
--- NOTE | ~2019-11-20 | MM_ITS ---
CORRECTED REPORT EXAMINATION CORRECTED. 11/21/19 sef EXAMINATION: MM screening isac BI w tamara HISTORY: Screening mammogram TECHNIQUE: Craniocaudal and mediolateral oblique 3-D tomosynthesis images were obtained and synthetic 2-D images were generated. CAD analysis was submitted and interpreted. COMPARISON: 01/17/2014 bilateral digital screening mammogram BREAST PARENCHYMAL COMPOSITION: The breasts are heterogeneously dense, which may obscure small masses. FINDINGS: Opacities are suggested in the lower posterior mid left breast and mid upper outer left breast. Diagnostic left mammogram is recommended, with ultrasound if required. No suspicious mass, architectural distortion, malignant calcification, skin thickening or retraction of the breasts is noted otherwise. IMPRESSION: 1. New mammographic opacities are suggested on the left 2. Diagnostic left mammogram is recommended, with ultrasound if required BI-RADS Category 0: Incomplete: Needs additional imaging evaluation. Reviewed, dictated and finalized at location A. MTDD
== END 2019-11-20 16:16 | disposition home or self-care (01) ==
LOC: ANHIMG 16:19
PROVIDERS: PCP Family Medicine; Visit Provider Family Medicine
DX: Z12.31 Encounter for screening mammogram for malignant neoplasm of breast (principal); R92.8 Other abnormal and inconclusive findings on diagnostic imaging of breast
CPT/HCPCS: 77063; 77067

== ENCOUNTER 2019-12-13 12:21 | Outpatient (CLI) | payer MEDICARE, SELFPAY ==
--- NOTE | ~2019-12-13 | MMUS_ITS ---
EXAMINATION: MM diagnostic mammo unilat LT, US breast LT complete HISTORY: Follow-up left breast asymmetries TECHNIQUE: Additional 3-D tomosynthesis images of the left breast were performed and synthetic 2-D im ages were generated. CAD analysis was submitted and interpreted. High resolution left breast ultrasou nd was performed. COMPARISON: Comparison to multiple prior studies sequentially, with oldest reviewed study dated 11/28. BREAST PARENCHYMAL COMPOSITION: The breasts are heterogenously dense, which may obscure small masses. FINDINGS: MAMMOGRAPHIC FINDINGS: There is persistent focal asymmetry in the upper outer quadrant of the left breast which is obscured by dense fibroglandular tissue. There are no suspicious calcifications or architectural distortion. ULTRASOUND: Complete left breast ultrasound: 2:00, 7 cm from the nipple, there is an irregular shaped hypoechoic mass with mixed posterior attenua tion measuring 1.7 x 1.5 x 1.1 cm. No internal vascularity. No other discrete masses are identified. IMPRESSION: 1. Complex irregular hypoechoic left breast mass at 2:00, 7 cm from the nipple. 2. Ultrasound-guided left breast biopsy recommended. BI-RADS category 4, suspicious findings. Reviewed, dictated and finalized at location A. IMPRESSION: 1. Complex irregular hypoechoic left breast mass at 2:00, 7 cm from the nipple. 2. Ultrasound-guided left breast biopsy recommended. BI-RADS category 4, suspicious findings.
== END 2019-12-13 12:22 | disposition home or self-care (01) ==
PROVIDERS: PCP Family Medicine; Visit Provider Nurse Practitioner Family
DX: R92.8 Other abnormal and inconclusive findings on diagnostic imaging of breast (principal); N63.21 Unspecified lump in the left breast, upper outer quadrant
CPT/HCPCS: 76641; 77065

== ENCOUNTER 2019-12-28 08:56 | Outpatient (CLI) | payer MEDICARE, SELFPAY ==
--- NOTE | ~2019-12-28 | MMUS_ITS ---
EXAMINATION: US breast biopsy LT w image, MM post biopsy invasive LT DATE: 12/28/2019 10:38 (accession [id number]), 12/28/2019 10:43 (accession [id number]) INDICATION: Left breast mass. Ultrasound-guided core biopsy is requested to evaluate for malignancy. TECHNIQUE AND FINDINGS: The risks and potential benefits of the procedure were discussed with the patient including bleeding and infection. A time out was performed. The skin of the left breast was prepared and draped in usual sterile fashion. 1% lidocaine was used for superficial anesthesia. 1% lidocaine with epinephrine was used for deep anesthesia. A vacuum-assisted biopsy gun needle was advanced through to the outer edge of the region of interest from an inferior approach utilizing sonographic guidance. A total of five tissue core samples were ob tained through the lesion. A tissue marker clip was then placed at the biopsy site. Hemostasis was ac hieved. A sterile bandage was applied. The patient tolerated procedure well and there was no evidence of immediate complication. The patient was given verbal instructions to return to the Emergency Department in the event of severe breast pa in or rapid breast enlargement. A two view left breast mammogram was obtained to document tissue chante er clip placement. IMPRESSION: 1. Successful ultrasound-guided vacuum-assisted biopsy of left breast mass with tissue marker placeme nt. Reviewed, dictated and finalized at location A. IMPRESSION: 1. Successful ultrasound-guided vacuum-assisted biopsy of left breast mass with tissue marker placement.
== END 2019-12-28 08:57 | disposition home or self-care (01) ==
PROVIDERS: PCP Family Medicine; Visit Provider Nurse Practitioner Family
DX: R92.8 Other abnormal and inconclusive findings on diagnostic imaging of breast (principal)
CPT/HCPCS: 19083; 88305; 88342; A4648

== ENCOUNTER 2020-01-21 08:58 | Outpatient (CLI) | payer MEDICARE, SELFPAY ==
--- NOTE | ~2020-01-21 | XR_ITS ---
XR abdomen/kub 1V 01/21/2020 09:27 Indication: Renal stones. Post lithotripsy of the left kidney. Procedure: KUB Comparison: Comparison to multiple prior studies sequentially, with oldest reviewed study dated 11/27. Findings: There are multiple stones in the lower pole of the left kidney there are cholecystectomy cl ips. There is a calcification just above the right sacrum, likely calcified lymph node. There are pel danica phleboliths. Stable coarse calcification left pelvis, likely benign. There are cholecystectomy cl ips. Bowel gas pattern is nonobstructive. Impression: 1: Stable nephrolithiasis lower pole of the left kidney. Reviewed, dictated and finalized at location A. H SPECIALIST Impression: 1: Stable nephrolithiasis lower pole of the left kidney.
== END 2020-01-21 08:59 | disposition home or self-care (01) ==
LOC: ANHIMG 09:03
PROVIDERS: PCP Family Medicine; Visit Provider Urology
DX: N20.0 Calculus of kidney (principal)
CPT/HCPCS: 74018

== ENCOUNTER 2020-07-21 11:24 | Outpatient (CLI) | payer MEDICARE, SELFPAY ==
--- NOTE | ~2020-07-21 | XR_ITS ---
XR abdomen/kub 1V 07/21/2020 11:38 Indication: Renal stone Procedure: KUB Comparison: CT dated 07/31/2019 Findings: There are persistent left renal stones. There is calcified lymph node just above the right sacrum. There is coarse amorphous calcification in the left pelvis, likely ovarian. There are pelvic phleboliths. Bowel gas pattern nonobstructive. No acute osseous abnormality. Impression: 1: Left nephrolithiasis. Reviewed, dictated and finalized at location A. Impression: 1: Left nephrolithiasis.
== END 2020-07-21 11:25 | disposition home or self-care (01) ==
LOC: ANHIMG 11:27
PROVIDERS: PCP Family Medicine; Visit Provider Urology
DX: N20.0 Calculus of kidney (principal)
CPT/HCPCS: 74018

== ENCOUNTER 2021-08-20 13:38 | Outpatient (CLI) | payer MEDICARE, SELFPAY ==
--- NOTE | ~2021-08-20 | XR_ITS ---
EXAMINATION: XR lumbar spine 2-3V DATE: 08/20/2021 13:59 INDICATION: Low back pain TECHNIQUE: Anteroposterior and lateral views of the lumbar spine, and cone-down lateral view of the l umbosacral junction were obtained. COMPARISON: 07/22/2019 FINDINGS: There is no fracture, dislocation, or subluxation. Mild loss of intervertebral disc space h eight is seen throughout the lumbar spine. The vertebral body heights are normal. Small degenerative osteophytes project from the anterior endplates of multiple vertebral bodies. There is moderate facet osteoarthritis of the lower lumbar spine. Left nephrolithiasis is noted. Surgical clips in the right upper quadrant are likely from prior cholecystectomy. There are phleboliths in the pelvis. IMPRESSION: 1. Mild lumbar spondylosis without acute findings. 2. Left nephrolithiasis. Reviewed, dictated and finalized at location F.
== END 2021-08-20 13:39 | disposition home or self-care (01) ==
PROVIDERS: PCP Family Medicine; Visit Provider Nurse Practitioner Family
DX: M54.50 Low back pain, unspecified (principal); M47.816 Spondylosis without myelopathy or radiculopathy, lumbar region; N20.0 Calculus of kidney
CPT/HCPCS: 72100

== ENCOUNTER 2022-10-21 07:41 | Outpatient (RCR) | payer MEDICARE, SELFPAY ==
[2022-10-07 07:45] VITALS: BMI 33.2
== END 2022-12-02 13:36 | disposition home or self-care (01) ==
LOC: ANHWOC 07:41
PROVIDERS: PCP Family Medicine; Visit Provider Nurse Practitioner Family
DX: S21.002A Unspecified open wound of left breast, initial encounter (principal)
CPT/HCPCS: 99212; 99213; A9270; G0463

== ENCOUNTER 2022-11-16 12:51 | Outpatient (CLI) | payer MEDICARE, SELFPAY ==
--- NOTE | ~2022-11-16 | MR_ITS ---
MR breast BI wo/w con 11/17/2022 08:27 CDT INDICATION: History of left breast cancer. Status post surgery. Prior area of surgery filled with flu id with recent drainage. 1 to currently (and will not heal. TECHNIQUE: MRI of the breasts perform using standard protocol pre-and post IV contrast with the follo wing sequences: Axial T2 STIR, axial T1, axial vibrant T1 with fat suppression precontrast and multip hasic postcontrast. 17 cc of MultiHance administered intravenously. COMPARISON: Mammogram and ultrasound dated 12/13/2019 and ultrasound dated 11/16/2022 FINDINGS: Right breast: There are no abnormalities on the precontrast sequences. There is moderate background p arenchymal enhancement. No enhancing lesions following contrast administration. No areas of enhance ment meeting threshold criteria on CAD analysis. No evidence of signal abnormalities in the axillary or internal mammary node distributions. LEFT BREAST: Precontrast there is a large area of abnormal soft tissue in the lower outer quadrant of the left breast posteriorly containing complex fluid internal. The area of abnormal soft tissue lila ures 6.8 x 4.4 x 3.2 cm with irregular thickened corea extending to the pectoralis muscle. The international trade analyst al fluid collection measures 2.7 x 1.5 cm greatest axial dimension. This soft tissue measures 8.9 cm posterior to the nipple with rapid washout enhancement. There is communication to the skin surface, c onsistent with known surgical incision. There is diffuse skin thickening of the left breast with coar se reticulation throughout the breast parenchyma, possibly from previous radiation. Clinically correl ate. Mild soft tissue edema extends medial to the left breast in the chest wall. There is moderate ba ckground parenchymal enhancement. No evidence of signal abnormalities in the axillary or internal m ammary node distributions.] IMPRESSION: 1: Right breast: Negative. No evidence of malignancy. BI-RADS category 1. Recommend annual mammo graphy follow-up. 2: Left breast: Complex mixed soft tissue and fluid collection of the left breast in the lower outer quadrant posteriorly measuring 6.8 x 4.4 x 3.2 cm. The soft tissue communicates to the skin surface laterally, consistent with known surgical excision. There is heterogeneous rapid washout enhancement of the wall surrounding the complex fluid. Soft tissue extends to the pectoralis muscle. There is dif fuse skin thickening of the left breast with diffuse coarse reticulation of the breast parenchyma. Di fferential diagnosis includes postoperative changes with fibrosis/seroma, infection and residual neop lasm. Given the poor visualization on corresponding ultrasound and open wound limiting use of mammogr aphy, consider open drainage with biopsy. BI-RADS Category 4 Reviewed, dictated and finalized at location A. IMPRESSION: 1: Right breast: Negative. No evidence of malignancy. BI-RADS category 1. Recommend annual mammography follow-up. 2: Left breast: Complex mixed soft tissue and fluid collection of the left robert ast in the lower outer quadrant posteriorly measuring 6.8 x 4.4 x 3.2 cm. The s oft tissue communicates to the skin surface laterally, consistent with known constantino rgical excision. There is heterogeneous rapid washout enhancement of the wall s urrounding the complex fluid. Soft tissue extends to the pectoralis muscle. The re is diffuse skin thickening of the left breast with diffuse coarse reticulati on of the breast parenchyma. Differential diagnosis includes postoperative dos santos ges with fibrosis/seroma, infection and residual neoplasm. Given the poor visua lization on corresponding ultrasound and open wound limiting use of mammography , consider open drainage with biopsy. BI-RADS Category 4
--- NOTE | ~2022-11-16 | US_ITS ---
US breast LT limited 11/16/2022 13:57 Indication: Personal history of malignant neoplasm of the left breast. Breast cancer 2 years ago stat us post lumpectomy. Area of surgery filled with fluid with recent drainage. Wound is currently open a nd will not heal. Procedure: High-resolution Limited ultrasound of the left breast Comparison: Ultrasound dated 12/13/2019 Findings: Study extremely limited due to open wound. Standoff pad was attempted, although images did not improve. There is heterogeneous soft tissue with dense posterior shadowing. No definite discrete fluid collection is seen. Impression: 1: Extremely limited study due to open wound. No definite fluid collection identified for drainage pu rposes. Reviewed, dictated and finalized at location A. Impression: 1: Extremely limited study due to open wound. No definite fluid collection iden tified for drainage purposes.
== END 2022-11-16 12:52 | disposition home or self-care (01) ==
PROVIDERS: PCP Family Medicine; Visit Provider Physician Assistant Surgical
DX: S21.002A Unspecified open wound of left breast, initial encounter (principal); Z85.3 Personal history of malignant neoplasm of breast
CPT/HCPCS: 76642; 77049; A9577; C8908

== ENCOUNTER 2023-01-04 00:29 | Day surgery (SDC) | payer MEDICARE, SELFPAY ==
[2022-12-30 11:31] VITALS: BMI 34.0
--- NOTE | 2022-12-30 11:40 | PC.NURSE ---
Report to the Outpatient Waiting Room, entrance under the green pavilion located off [facility], at time __0600 on date _01/04/23 . Planned Procedure Time: ___729 . Time changes happen often and if your time is changed the preop area will call you the afternoon before. - You and your visitor will be asked to self-screen and do not enter if you have any COVID symptoms. - A mask is optional within the hospital at this time. Patients may have clear liquids (water, carbonated beverages, clear teas, apple juice) until 3 hours prior to surgery (0430 AM) with a maximum of 20 ounces. - No food from midnight until time of surgery - Infants may have breast milk until 4 hours before surgery, infant formula 6 hours prior to surgery. - Children will be allowed to drink immediately following surgery. If applicable, please bring a bottle or sippy cup to assist with drinking. Juice, water, soda, and popsicles are readily available. For infants on formula, please bring formula the day of surgery. Pacifiers are allowed. Take the following medications with a SIP of water the morning of surgery: __DULOXETINE, GABAPENTIN DO NOT STOP ANY OF YOUR OTHER PRESCRIPTION MEDICATIONS PRIOR TO SURGERY ?EXCEPT THE FOLLOWING Medications to discontinue per DR. FROST - __ASPIRIN CALL OFFICE FOR INSTRUCTIONS____ Date to take last dose Please no make-up, nail yi, hairspray, perfume, deodorant, or body powder the day of surgery. No jewelry (including any body piercings) or valuables the day of surgery, leave them at home. Please take a shower or bath the night before, or the morning of, surgery with an antibacterial soap. Wear comfortable, loose fitting clothing. Children are encouraged to wear pajamas. - Jewelry must be removed prior to entering the operating room. Rings and piercings that are not removed may be cut off. - The hospital will not accept responsibility for valuables. - Please leave all valuables, including medications, at home the day of surgery. If you are going home after surgery, a licensed route sales delivery driver must drive you home. - NO public transportation without another adult if you receive anesthesia. - We recommend that an adult stay with you for 24 hours following discharge. - We also recommend that you do not drive, make important decision, drink alcoholic beverages, or take any drugs that were not prescribed by your health care provider for at least 24 hours after your discharge time. For Pediatric surgeries, we recommend two adults accompany the child home. Follow any additional instructions given to you from your surgeon. If you or anyone in your household have experienced Covid symptoms in the past week, please notify your surgeon or the nurse liaison at the phone number below for possible testing. Telephone instructions given to ____PT and asked if any additional questions and then verbalized understanding. Patient advised to call surgeon office or pre surgery nurse liaison [phone] if any additional questions.
[2023-01-04] VITALS (9 sets, daily range): BP systolic 122–161; BP diastolic 58–77; PULSE 63–103; RESP 12–18; TEMP 36.3–36.5; O2SAT 92–98; BMI 34.2
[2023-01-04] MEDS: LACTATED RINGERS 1,000 ML 30 ML IV CONT (06:45)
--- NOTE | 2023-01-04 06:50 | WPDANESEPPF ---
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 Patient Data Age: 67 Gender: F Height: 1.6 m Weight: 87.27 kg Allergies Allergy/AdvReac Type Severity Reaction Status Date / Time Penicillins Allergy Unknown Rash Verified 12/30/22 11:04 Home Medications Medication Instructions Recorded Confirmed Type rosuvastatin 20 mg tablet See Rx Instructions .Route 05/17/22 12/30/22 Rx .COMPLEX #90 tabs gabapentin 300 mg capsule 300 mg PO TID #90 caps 07/19/22 12/30/22 Rx duloxetine 60 mg capsule,delayed 60 mg PO DAILY #90 caps 07/20/22 12/30/22 Rx release (Cymbalta) duloxetine 30 mg capsule,delayed 30 mg PO DAILY #90 caps 07/21/22 12/30/22 Rx release (Cymbalta) losartan 50 mg tablet 50 mg PO DAILY 09/22/22 12/30/22 History zeyrrfpj-merj-rsts 8 mg-folic 400 1 tablet PO DAILY 09/22/22 12/30/22 History mcg-K 50 mcg-lutein 300 mcg tablet (Multivitamin Women 50 Plus) trazodone 50 mg tablet 50 mg PO QHS PRN insomnia #30 tabs 12/05/22 12/30/22 Rx blood sugar diagnostic #200 ea 12/28/22 12/30/22 Rx blood-glucose meter #1 ea 12/28/22 12/30/22 Rx dulaglutide 3 mg/0.5 mL 3 mg (0.5 mL) subcut WEEKLY #2 mL 12/28/22 12/30/22 Rx subcutaneous pen injector (Trulicity) lancets 33 gauge #200 ea 12/28/22 12/30/22 Rx aspirin 81 mg tablet,delayed 81 mg PO HS 12/30/22 12/30/22 History release omeprazole 20 mg capsule,delayed 20 mg PO DAILY 12/30/22 12/30/22 History release blood sugar diagnostic (OneTouch #100 ea 01/03/23 Rx Verio test strips) Patient hx anesthesia problems: none Family hx anesthesia problems: none Results Review: All pre-operative results and documents have been reviewed as part of the pre-operative evaluation. [facility] Past Medical History Medical History Anemia Arm fracture, left Arthritis BMI 33.0-33.9,adult BMI 34.0-34.9,adult BMI 35.0-35.9,adult BMI 36.0-36.9,adult BMI 37.0-37.9, adult Bulging discs Depression Diverticulitis GERD (gastroesophageal reflux disease) H/O: HTN (hypertension) History of kidney stones Multiple. Hx: UTI (urinary tract infection) Hypercholesteremia Obesity Sleep apnea Ulcer Surgical History Surgical History H/O breast surgery History of cholecystectomy History of hysterectomy History of lithotripsy x5. History of tonsillectomy Hx of tubal ligation Family History Family History Father Heart disease Diabetes mellitus Acute myocardial infarction Mother Breast cancer Sibling Breast cancer Stomach cancer Social History Social History Smoking status: Never smoker Second hand tobacco smoke exposure: No Alcohol intake: never Substance use: never Substance use type: does not use Lack of Transportation: No Lack of Food: Never True Current Housing: I Have Housing Concerned About Future Housing: No Difficulty Paying Gas/Electric Bills: No Difficulty Paying for Meds: No Currently Unemployed: No Education: High School Diploma/GED Difficulty w/ Childcare or Family Care: No Living arrangements: with family Occupation/Education: 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
--- NOTE | 2023-01-04 07:01 | WPDHPUPDATE1 ---
History and Physical Update Update Date/Time: 01/04/23 07:01 History and Physical has been reviewed, including an updated exam of the patient. There are NO changes in the patient's condition. Risks, benefits, and alternatives have been discussed and questions answered. Patient agrees to proceed with procedure.
[2023-01-04] MEDS: ACETAMINOPHEN 500 MG TABLET 1000 MG PO (07:02)
[2023-01-04 07:06] LABS: Glucose Point of Care 178 mg/dl (65-105)
--- NOTE | 2023-01-04 07:20 | WPDHPUPDATE1 ---
History and Physical Update Update Date/Time: 01/04/23 07:20 Patient seen and examined in pre-operative holding area. No interval change in medical history or symptoms. Continues to desire to proceed with left breast reconstruction and wound closure after Dr. Munroe performs excisional biopsy. I reviewed the risks including but not limited to bleeding ,infection, asymmetry, undesireable cosmetic appearance, partial/total skin/nipple loss, no change or worsening of symptoms, change in sensation. Discussed the use of assistants and their participation in the case. Patient stated understanding and signed the consent form wishing to proceed
--- NOTE | 2023-01-04 07:25 | P.OP_ITS ---
Procedure Note - Detailed Date of Procedure 01/04/23 Pre-op Diagnosis left breast wound Post-op Diagnosis Same Procedure Performed left breast reconstruction with fasciocutaneous flap Surgeon Chasity Martin MD Hospital Administrative Assistant savage jimenez pa-c Anesthesia General Description of Procedure pt. seen in pre-op area, marked and consented. taken back to OR and placed on table in supine position. Timeout was performed with anesthesia, surgeons and staff agreeing on patient's name, site, surgery to be performed. SCDs were placed on the lower extremities and inflated. Antibiotics were given IV. The breasts were prepped and draped in usual sterile fashion after general anesthesia was administered. Care was given over to Dr. Munroe who proceeded with excisional biopsy of the left breast mass/lesion via the skin incision pattern I designed which she is dictating separately. After Dr. Munroe completed the excisional biopsy there was a [id number] defect in the left lateral breast extending down to and through pectoralis and serratus fascia. This defect was too large to achieve acceptable primary closure. Hemostasis was done with bovie cautery. I irrigated with normal saline and proceeded with elevating a fasciocutaneous flap from the lateral chest wall based on branches of the serratus artery and lateral intercostal perforators making a back cut along the inferior mammary fold allowing advancement I mobilized some lateral breast tissue and was able to advance this flap medially to achieve closure and reconstruct the lateral sweep of the breast. The fascia of flap was sutured to remaining pectoralis fascia to help support and maintain the advancement and reduce lateral pull on the breast. I placed a #7 TORI drain in the remaining cavity. 3-0 vicryl was used for subcutaneous and dermal closure and 4-0 monocryl for skin. Dog ears were trimmed appropriately from the ends of the incision. The flap was healthy and viable with good cap refill. A dressing of mastisol, steri-strip, 4x4, abd and breast binder was applied. The drain was hooked to bulb suction. The patient was awaken from anesthesia and transferred to the recovery room in stable condition. Complications: none EBL: 5cc for my portion of procedure Dispostiion: Patient tolerated the procedure well and discharged home in stable conditions Savage Jimenez PA-C was essential throughout the entire procedure for positioning, retraction, hemostasis, closure and dressing placement. [facility] Billing Surgery - Charge Forward: Surgery Billing ([id number] same code for Savage jimenez with modifier )
[2023-01-04] MEDS: ceFAZolin 2 GM/D5W 50 ML 2 GM/50 ML BAG IVPB (07:30)
[2023-01-04] MEDS: LIDO 1%/EPINEPHRINE 1:100,000 20 ML VIAL INFILTRATE (07:52)
--- NOTE | 2023-01-04 08:26 | W.PM.PROC2 ---
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 nonhealing wound of the left breast after multiple incisions and drainage procedures at outside hospital.?Breast MRI was performed and showed abnormal enhancement of left breast wound cavity as well as mixed soft tissue mass within the wound cavity, BIRADS 4, recommended for a open biopsy (given the extent of enhancement and open wound, not amenable to US guided or MRI guided biopsy.?Recommendation was for an excisional biopsy of this chronic left breast wound and adjacent tissue transfer by Plastic Surgery for both diagnostic and therapeutic purposes. Risks of the procedure were discussed again with the patient which included but not limited to risk of bleeding, infection, wound healing problems, seroma recurrence, possible need for additional procedures in the future, asymmetry, scar, pain as well as the risk of anesthesia.? All questions were answered patient agreed to proceed.? We will proceed with plan as outlined above. Description of Procedure Patient was identified in the preoperative holding area and brought to the operating room suite. She was laid supine in the operating table sequential compression devices were applied. General anesthesia was induced without difficulty. Bilateral chest areas were prepped and draped in a sterile fashion. The left breast wound was marked with an elliptical and an incision was made around the skin opening with a 15 blade. Dissection was carried down through the subcutaneous tissue and the breast tissue to completely excise the chronic wound cavity in en block fashion. The specimen was oriented with surgical paints according to dealer relationship manager instructions and sent to pathology as a permanent specimen. This wound cavity did go all the way down to the muscle as previously noted in the breast MRI. There is no obvious masses or nodules but the breast tissue had radiation changes throughout. Hemostasis was assured and the case was then turned over to Dr. Jesus for closure. Please refer to his operative note for further details. All needles, instruments, sponge counts were correct as reported by the operating room staff. Patient tolerated the procedure with no immediate complications. Valencia Fonseca PA-C was present and assisted with retraction and positioning throughout the case. Estimated Blood Loss 5 Drains Yes Pathology Yes Complications No immediate complications Condition Stable Disposition PACU [facility] Billing Surgery - Charge Forward: Surgery Billing (cpt 15940)
[2023-01-04 09:07] LABS: Glucose Point of Care 178 mg/dl (65-105)
[2023-01-04] MEDS: fentaNYL CITRATE INJ (*CRX) 100 MCG/2 ML VIAL 25 MCG IV PUSH (09:27)
[2023-01-04] MEDS: oxyCODONE HCL (*CRX) 5 MG TAB IR PO (10:00)
== END 2023-01-04 10:53 | disposition home or self-care (01) ==
PROVIDERS: Plastic Surgery; PCP Family Medicine; Visit Provider Surgery
PROC: (CPT 19120; principal; 2023-01-04 07:30)
PROC: (CPT 15734; 2023-01-04 07:30)
DX: T81.89XA Other complications of procedures, not elsewhere classified, initial encounter (principal); N64.89 Other specified disorders of breast; L90.5 Scar conditions and fibrosis of skin; Y83.8 Other surgical procedures as the cause of abnormal reaction of the patient, or of later complication, without mention of misadventure at the time of the procedure; Z85.3 Personal history of malignant neoplasm of breast; Z90.12 Acquired absence of left breast and nipple; I10 Essential (primary) hypertension; E78.5 Hyperlipidemia, unspecified; D64.9 Anemia, unspecified; K21.9 Gastro-esophageal reflux disease without esophagitis; F32.A Depression, unspecified; G47.30 Sleep apnea, unspecified; E66.9 Obesity, unspecified; Z68.34 Body mass index [BMI] 34.0-34.9, adult; Z79.85 Long-term (current) use of injectable non-insulin antidiabetic drugs; Z79.82 Long term (current) use of aspirin
CPT/HCPCS: 19120; 15734; 82948; 87070; 87075; 87205; 88305; A9270; J0690; J1100; J1170; J2250; J2371; J2405; J2704; J3010; J7120; Q9968

== ENCOUNTER 2023-01-14 16:30 | Emergency (ER) | payer MEDICARE, SELFPAY ==
--- NOTE | ~2023-01-14 | XR_ITS ---
EXAMINATION: XR chest 1V portable DATE: 01/14/2023 17:33 INDICATION: Cough TECHNIQUE: frontal view of the chest was obtained. COMPARISON: Chest radiograph dated 05/27/2014 FINDINGS: Again seen a calcified nodules in the right lower lung zone and along the left lung base consistent w ith old granulomatous disease. No other airspace opacities, pulmonary edema, pleural effusion or pneu mothorax. The cardiomediastinal silhouette is normal. Cholecystectomy clips at the right upper quadra nt. IMPRESSION: 1. No acute cardiopulmonary disease. Reviewed, dictated and finalized at location A. TENDER
[2023-01-14 16:32] VITALS: BP 150/73; PULSE 107; RESP 16; TEMP 36.3; O2SAT 97
[2023-01-14 17:03] VITALS: O2SAT 99
[2023-01-14 17:19] LABS: Influenza A QL RT-PCR Negative (Negative); Influenza B QL RT-PCR Negative (Negative); RSV RNA, RT-PCR Negative (Negative); SARS-CoV-2 RNA PCR Negative (Negative)
[2023-01-14 18:50] VITALS: BP 148/83; PULSE 79; RESP 17; O2SAT 100
--- NOTE | 2023-01-14 19:34 | ED.URI ---
HPI - URI/Sore Throat General Chief Complaint: Upper Respiratory Infection Stated Complaint: uri Time Seen by Provider: 01/14/23 19:10 Source: patient Limitations: no limitations History of Present Illness HPI Narrative: Patient is a 67-year-old female presents to the emergency department with multiple complaints consistent with upper respiratory infection. Patient states since approximately Tuesday she has been experiencing nasal congestion, sore throat, cough productive of green sputum, generalized body aches. Patient denies any fever. Patient admits to taking Robitussin and Mucinex with some relief. Patient states that she was seen at urgent care on Tuesday and was given eyedrops which did resolve her I crustiness and her eyes feel well at this time. Patient denies any chest pain, shortness of breath, abdominal pain, nausea, vomiting, diarrhea, urinary discomfort. Patient admits to a recent surgery on her left breast approximately 10 days ago in which she had a partial mastectomy and she has been taking antibiotics of Keflex and has 2 more pills with this remaining. Patient denies being on any chemotherapy for past 1.5 years. Related Data Home Medications Medication Instructions Recorded Confirmed losartan 50 mg tablet 50 mg PO DAILY 09/22/22 01/11/23 zeewicya-furs-woay 8 mg-folic 400 1 tablet PO DAILY 09/22/22 01/11/23 mcg-K 50 mcg-lutein 300 mcg tablet (Multivitamin Women 50 Plus) aspirin 81 mg tablet,delayed 81 mg PO HS 12/30/22 01/11/23 release omeprazole 20 mg capsule,delayed 20 mg PO DAILY 12/30/22 01/11/23 release Allergies Allergy/AdvReac Type Severity Reaction Status Date / Time Penicillins Allergy Unknown Rash Verified 01/11/23 09:28 Review of Systems Review of Systems: A 10 system review of systems was completed on the patient and is negative except for what is stated in the HPI. Nursing and ancillary documentation was reviewed. [facility] Past Medical History Medical History Anemia Arm fracture, left Arthritis BMI 33.0-33.9,adult BMI 34.0-34.9,adult BMI 35.0-35.9,adult BMI 36.0-36.9,adult BMI 37.0-37.9, adult Bulging discs Depression Diverticulitis GERD (gastroesophageal reflux disease) H/O: HTN (hypertension) History of kidney stones Multiple. Hx: UTI (urinary tract infection) Hypercholesteremia Obesity Sleep apnea Ulcer Surgical History Surgical History H/O breast surgery History of cholecystectomy History of hysterectomy History of lithotripsy x5. History of tonsillectomy Hx of tubal ligation Family History Family History Father Heart disease Diabetes mellitus Acute myocardial infarction Mother Breast cancer Sibling Breast cancer Stomach cancer Social History Social History Smoking status: Never smoker Second hand tobacco smoke exposure: No Alcohol intake: never Substance use: never Substance use type: does not use Lack of Transportation: No Lack of Food: Never True Current Housing: I Have Housing Concerned About Future Housing: No Difficulty Paying Gas/Electric Bills: No Difficulty Paying for Meds: No Currently Unemployed: No Education: High School Diploma/GED Difficulty w/ Childcare or Family Care: No Living arrangements: with family Occupation/Education: 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 Please see the nursing chart for further information. There is no relevant family his
[2023-01-14 20:16] VITALS: BP 135/74; PULSE 78; RESP 18; O2SAT 98
== END 2023-01-14 20:18 | disposition home or self-care (01) ==
PROVIDERS: Emergency Medicine; Emergency Provider Student in an Organized Health Care Education/Training Program; PCP Family Medicine
DX: J06.9 Acute upper respiratory infection, unspecified (principal); I10 Essential (primary) hypertension; J01.90 Acute sinusitis, unspecified; Z20.822 Contact with and (suspected) exposure to COVID-19
CPT/HCPCS: 71045; 87637; 99283

== ENCOUNTER 2023-03-02 11:09 | Outpatient (CLI) | payer MEDICARE, SELFPAY ==
[2023-03-02 11:29] LABS: Basophils Absolute Auto 0.1 K/mm3 (0.0-0.1); Basophils Percent Auto 0.8 % (0.2-1.2); Eosinophils Absolute Auto 0.2 K/mm3 (0-0.3); Eosinophils Percent Auto 2.1 % (0-4.4); Hemoglobin 13.9 g/dL (12.0-15.0); Immature Granulocyte Absolute 0.02 K/mm3 (0.00-0.031); Immature Granulocyte Percent A 0.3 % (0-0.5); Lymphocytes Absolute Auto 2.39 K/mm3 (0.9-3.2); Lymphocytes Percent Auto 31.3 % (18.3-44.2); Mean Corpuscular HGB Conc 33.1 g/dl (32-36); Mean Corpuscular Hemoglobin 29.8 pg (26-34); Mean Corpuscular Volume 90.1 fl (80-100); Monocytes Absolute Auto 0.7 K/mm3 (0.1-0.6); Monocytes Percent Auto 8.5 % (2.6-8.5); Neutrophils Absolute Auto 4.4 K/mm3 (1.3-6.7); Platelet Count Result 312 k/mm3 (150-375); Red Blood Count 4.66 M/mm3 (4.2-5.4); Red Cell Distribution Width 12.6 % (11.5-14.5); White Blood Count 7.6 K/mm3 (4.5-10.0)
[2023-03-02 15:22] LABS: Alanine Aminotransferase 23 U/L (6-35); Albumin Level 4.3 g/dL (3.5-5.1); Alkaline Phosphatase 102 U/L (38-126); Anion Gap 10 mmol/L (8-16); Aspartate Amino Transferase 25 U/L (14-36); Bilirubin,Total 0.9 mg/dL (0.2-1.3); Blood Urea Nitrogen 20 mg/dL (7-17); Calcium 9.9 mg/dL (8.4-10.2); Carbon Dioxide 27 mmol/L (22-30); Chloride 99 mmol/L (98-107); Estimated Glomerular Filt Rate > 60; Glucose 153 mg/dL (65-110); Potassium 4.1 mmol/L (3.4-5.0); Sodium 136 mmol/L (137-145)
[2023-03-05 04:34] LABS: CA 15-3 9 U/mL (<32)
== END 2023-03-02 11:10 | disposition home or self-care (01) ==
LOC: ANHLAB 11:13
PROVIDERS: PCP Family Medicine; Visit Provider Internal Medicine Hematology & Oncology
DX: C50.912 Malignant neoplasm of unspecified site of left female breast (principal); Z17.1 Estrogen receptor negative status [ER-]
CPT/HCPCS: 36415; 80053; 85025; 86300

== ENCOUNTER 2023-06-02 15:12 | Emergency (ER) | payer MEDICARE, SELFPAY ==
--- NOTE | ~2023-06-02 | CT_ITS ---
EXAMINATION: CT abdomen pelvis w con DATE: 06/02/2023 16:11 INDICATION: Right flank pain, nausea and hematuria TECHNIQUE: Computed tomography (CT) of the abdomen and pelvis was performed with 100 mL Omnipaque-350 intravenous contrast. Automated exposure control and iterative reconstruction technique were employe d. The dose-length product was 762.18 mGy-cm. COMPARISON: None FINDINGS: Mild dependent atelectasis in bilateral lower lobes. Calcified left lower lobe and lingular nodules c onsistent with old granulomatous disease. Heart size is normal. Aortic valve calcific lesion. No dov cardial or pleural effusion. 6.1 x 3.9 cm peripherally enhancing fluid collection in the left breast where there are also postoperative changes and overlying skin thickening with similar description on breast MRI study dated 11/16/2022 likely postoperative seroma related to excision of a reported prior left breast cancer. Cholecystectomy clips the gallbladder fossa. Likely diffuse pancreatitis although specificities decreased metatarsals intravenous contrast. Several splenic calcific location consiste nt with old granulomatous disease. Pancreas and bilateral adrenal glands are normal. Bilateral low-at tenuation subcentimeter renal cysts. There are couple left renal stones the larger measuring 10 x 8 x 5 mm stone in the smaller measuring 2 mm, both at the lower pole. There are several phleboliths in t he pelvis. Symmetric normal bilateral renal parenchymal enhancement. No hydronephrosis. Bowels includ ing the appendix are normal. Bladder is normal. The uterus is not identified and has likely been surg ically resected. 2.4 cm left adnexal cyst. No free intraperitoneal gas or fluid. No pathologically en larged abdominal or pelvic lymphadenopathy. Mild to moderate lumbar spondylosis. IMPRESSION: 1. Nonobstructing left nephrolithiasis. No acute intra-abdominal/pelvic process. 2. Partially visualized 6.1 x 3.1 cm peripherally enhancing fluid collection at the left breast most likely a residual postoperative seroma at the site of reported excised left breast cancer although di fferential would include abscess in the appropriate clinical setting and difficult to exclude residua l malignancy. Reviewed, dictated and finalized at location A. IMPRESSION: 1. Nonobstructing left nephrolithiasis. No acute intra-abdominal/pelvic process . 2. Partially visualized 6.1 x 3.1 cm peripherally enhancing fluid collection at the left breast most likely a residual postoperative seroma at the site of rep orted excised left breast cancer although differential would include abscess in the appropriate clinical setting and difficult to exclude residual malignancy.
[2023-06-02 15:19] VITALS: BP 155/87; PULSE 113; RESP 18; TEMP 36.6; O2SAT 97
--- NOTE | 2023-06-02 15:32 | ED.FEMALEGU ---
HPI - Female Genitourinary General Chief complaint: Urogenital-Female Stated complaint: kidney stone Time Seen by Provider: 06/02/23 15:23 Source: patient and family () Mode of arrival: ambulatory Limitations: no limitations History of Present Illness HPI Narrative: Patient presents with right flank pain. She thought she was having a UTI approximately 1 week ago due to dysuria and was empirically started on antibiotics but told to stop them when urine testing did not show UTI. PMH kidney stones and has been through stents, surgical removal and lithotripsy; urologist is Dr Castellanos. Took ibuprofen; last dose 400mg at 2pm. . 7 out of 10 in pain. Pain radiates to groin. No fevers but occasionally feels warm, like hot flashes. Related Data Home Medications Medication Instructions Recorded Confirmed losartan 50 mg tablet 50 mg PO DAILY 09/22/22 05/25/23 wvfkasdu-yguz-oagq 8 mg-folic 400 1 tablet PO DAILY 09/22/22 05/25/23 mcg-K 50 mcg-lutein 300 mcg tablet (Multivitamin Women 50 Plus) aspirin 81 mg tablet,delayed 81 mg PO HS 12/30/22 05/25/23 release omeprazole 20 mg capsule,delayed 20 mg PO DAILY 12/30/22 05/25/23 release semaglutide 3 mg tablet (Rybelsus) 3 mg PO DAILY 05/25/23 05/25/23 Allergies Allergy/AdvReac Type Severity Reaction Status Date / Time Penicillins Allergy Unknown Rash Verified 05/25/23 14:45 [facility] Past Medical History Medical History Anemia Arm fracture, left Arthritis BMI 35.0-35.9,adult Bulging discs Depression Diverticulitis GERD (gastroesophageal reflux disease) H/O: HTN (hypertension) History of kidney stones Multiple. Hx: UTI (urinary tract infection) Hypercholesteremia Metastatic breast cancer Non-insulin dependent diabetes mellitus Obesity STACIE (obstructive sleep apnea) Sleep apnea Triple negative malignant neoplasm of breast Ulcer Surgical History Surgical History H/O breast surgery History of cholecystectomy History of hysterectomy History of lithotripsy x5. History of tonsillectomy Hx of tubal ligation Family History Family History Father Heart disease Diabetes mellitus Acute myocardial infarction Mother Breast cancer Sibling Breast cancer Stomach cancer Social History Social History Smoking status: Never smoker Second hand tobacco smoke exposure: No Alcohol intake: never Substance use: never Substance use type: does not use Lack of Transportation: No Lack of Food: Never True Current Housing: I Have Housing Concerned About Future Housing: No Difficulty Paying Gas/Electric Bills: No Difficulty Paying for Meds: No Currently Unemployed: No Education: High School Diploma/GED Difficulty w/ Childcare or Family Care: No Living arrangements: with family Occupation/Education: 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 HEAD: Normocephalic, atraumatic. EYES: Non injected, non icteric ENT: Nares clear, no rhinorrhea or epistaxis. NECK: Supple. CHEST: Speaking in full sentences. No respiratory distress. Left breast with area of firmness from 3 o'clock to 6 o'clock position. No overlying erythema. Non tender. HEART: Tachycardic rate and rhythm. . ABDOMEN: Soft, nondistended. : No CVA tenderness bilaterally EXTREMITIES: Normal range of motion. No edema. SKIN: Warm, dry, no rash. NEURO: No focal deficits. Alert and oriented x3. PSYCH: Normal mood and affect. Course Vital Signs Vital signs: Vital Signs Temperature 97.8 F 04/
[2023-06-02 15:51] LABS: Basophils Absolute Auto 0.1 K/mm3 (0.0-0.1); Basophils Percent Auto 0.7 % (0.2-1.2); Eosinophils Absolute Auto 0.2 K/mm3 (0-0.3); Eosinophils Percent Auto 2.2 % (0-4.4); Hematocrit 40.9 % (37.0-47.0); Hemoglobin 13.5 g/dL (12.0-15.0); Immature Granulocyte Absolute 0.04 K/mm3 (0.00-0.031); Immature Granulocyte Percent A 0.5 % (0-0.5); Lymphocytes Absolute Auto 2.79 K/mm3 (0.9-3.2); Lymphocytes Percent Auto 32.6 % (18.3-44.2); Mean Corpuscular Hemoglobin 29.3 pg (26-34); Mean Corpuscular Volume 88.9 fl (80-100); Mean Platelet Volume 9.4 fl (7.4-10.4); Monocytes Absolute Auto 0.7 K/mm3 (0.1-0.6); Monocytes Percent Auto 8.1 % (2.6-8.5); Neutrophils Absolute Auto 4.8 K/mm3 (1.3-6.7); Neutrophils Percent Auto 55.9 % (45.5-73.1); Platelet Count Result 277 k/mm3 (150-375); Red Cell Distribution Width 12.8 % (11.5-14.5); White Blood Count 8.6 K/mm3 (4.5-10.0)
[2023-06-02] MEDS: SODIUM CHLORIDE 0.9% IV 1,000 ML 999 ML IV CONT (15:51)
[2023-06-02] MEDS: ACETAMINOPHEN 325 MG TABLET 650 MG PO (15:51)
[2023-06-02] MEDS: HYDROcodone/acetaminophen (*CRX) 5-325 MG TABLET 1 TAB PO (15:51)
[2023-06-02 15:54] LABS: Appearance Urine Clear (Clear); Bilirubin Urine Negative (Negative); Blood Urine Negative (Negative); Color Urine Yellow (Yellow); Glucose Urine UA Trace mg/dL (Negative); Ketones Urine Negative (Negative); Leukocyte Esterase Ur Negative LEU/UL (Negative); Nitrate Urine Negative (Negative); Protein Urine Negative (Negative); Specific Grav Ur 1.009 (1.001-1.035); pH Urine 6.5 (5.0-9.0)
[2023-06-02 16:01] LABS: Add Urine Microscopic? NO; Alanine Aminotransferase 25 U/L (6-35); Albumin Level 4.4 g/dL (3.5-5.1); Alkaline Phosphatase 118 U/L (38-126); Anion Gap 4 mmol/L (4-12); Aspartate Amino Transferase 26 U/L (14-36); Bilirubin,Total 0.8 mg/dL (0.2-1.3); Blood Urea Nitrogen 13 mg/dL (7-17); Carbon Dioxide 30 mmol/L (22-30); Chloride 101 mmol/L (98-107); Estimated CRCL calculation 69 ml/min; Estimated Glomerular Filt Rate > 60; Glucose 208 mg/dL (65-110); Potassium 3.8 mmol/L (3.4-5.0); Sodium 135 mmol/L (137-145)
[2023-06-02 16:05] LABS: Estimated CRCL calculation 61 ml/min; Estimated Glomerular Filt Rate > 60
[2023-06-02] MEDS: TAMSULOSIN HCL 0.4 MG CAPSULE PO (17:29)
[2023-06-02 17:40] VITALS: BP 150/80; PULSE 95; RESP 18; TEMP 36.6; O2SAT 99
== END 2023-06-02 17:40 | disposition home or self-care (01) ==
PROVIDERS: Emergency Medicine; Emergency Provider Student in an Organized Health Care Education/Training Program; PCP Family Medicine
DX: N20.0 Calculus of kidney (principal); E11.65 Type 2 diabetes mellitus with hyperglycemia; I10 Essential (primary) hypertension; E78.00 Pure hypercholesterolemia, unspecified; E66.9 Obesity, unspecified; Z68.35 Body mass index [BMI] 35.0-35.9, adult; G47.33 Obstructive sleep apnea (adult) (pediatric); G47.30 Sleep apnea, unspecified; K21.9 Gastro-esophageal reflux disease without esophagitis; M19.90 Unspecified osteoarthritis, unspecified site; Z85.3 Personal history of malignant neoplasm of breast; Z87.440 Personal history of urinary (tract) infections; Z87.442 Personal history of urinary calculi; Z90.49 Acquired absence of other specified parts of digestive tract; Z90.710 Acquired absence of both cervix and uterus; Z79.82 Long term (current) use of aspirin; Z79.84 Long term (current) use of oral hypoglycemic drugs; N63.24 Unspecified lump in the left breast, lower inner quadrant
CPT/HCPCS: 36415; 74177; 80053; 81003; 85025; 96360; 99284; A9270; J7030; Q9967

== ENCOUNTER 2023-06-09 08:07 | Outpatient (CLI) | payer MEDICARE, SELFPAY ==
--- NOTE | 2023-06-09 08:11 | ECG_ITS ---
SEE SCANNED COPY FOR CONFIRMED REPORT MTDD
[2023-06-09 09:04] LABS: INR 0.9; Prothrombin Time 12.2 Seconds (11.1-14.7)
[2023-06-09 09:06] LABS: Partial Thromboplastin Time 25.9 Seconds (22.3-36.8)
== END 2023-06-09 08:08 | disposition home or self-care (01) ==
LOC: ANHSURGERY 08:10
PROVIDERS: PCP Family Medicine; Visit Provider Urology
DX: Z01.818 Encounter for other preprocedural examination (principal); N20.0 Calculus of kidney; I10 Essential (primary) hypertension
CPT/HCPCS: 36415; 85610; 85730; 87086; 87088; 93005

== ENCOUNTER 2023-06-14 15:27 | Outpatient (CLI) | payer MEDICARE, SELFPAY ==
[2023-06-14 15:40] LABS: Basophils Absolute Auto 0.1 K/mm3 (0.0-0.1); Basophils Percent Auto 1.1 % (0.2-1.2); Eosinophils Absolute Auto 0.1 K/mm3 (0-0.3); Hematocrit 40.3 % (37.0-47.0); Hemoglobin 13.2 g/dL (12.0-15.0); Immature Granulocyte Absolute 0.03 K/mm3 (0.00-0.031); Immature Granulocyte Percent A 0.4 % (0-0.5); Lymphocytes Absolute Auto 2.18 K/mm3 (0.9-3.2); Lymphocytes Percent Auto 30.7 % (18.3-44.2); Mean Corpuscular HGB Conc 32.8 g/dl (32-36); Mean Corpuscular Hemoglobin 29.6 pg (26-34); Mean Corpuscular Volume 90.4 fl (80-100); Monocytes Absolute Auto 0.6 K/mm3 (0.1-0.6); Monocytes Percent Auto 7.8 % (2.6-8.5); Neutrophils Absolute Auto 4.1 K/mm3 (1.3-6.7); Platelet Count Result 312 k/mm3 (150-375); Red Blood Count 4.46 M/mm3 (4.2-5.4); Red Cell Distribution Width 12.6 % (11.5-14.5); White Blood Count 7.1 K/mm3 (4.5-10.0)
[2023-06-14 15:44] LABS: Blood Urea Nitrogen 10 mg/dL (8-26); Carbon Dioxide 26 mmol/L (22-30); Chloride 98 mmol/L (98-109); Estimated Glomerular Filt Rate > 60; Glucose 273 mg/dL (70-105); Ionized Calcium (POC) 1.17 mmol/L (1.11-1.31); Potassium 3.9 mmol/L (3.5-4.9); Sodium 137 mmol/L (138-146)
[2023-06-14 16:45] LABS: Alanine Aminotransferase 29 U/L (6-35); Albumin Level 4.4 g/dL (3.5-5.1); Alkaline Phosphatase 108 U/L (38-126); Anion Gap 10 mmol/L (4-12); Aspartate Amino Transferase 29 U/L (14-36); Bilirubin,Total 0.8 mg/dL (0.2-1.3); Blood Urea Nitrogen 11 mg/dL (7-17); Calcium 9.2 mg/dL (8.4-10.2); Carbon Dioxide 23 mmol/L (22-30); Chloride 101 mmol/L (98-107); Estimated Glomerular Filt Rate > 60; Glucose 274 mg/dL (65-110); Sodium 134 mmol/L (137-145)
== END 2023-06-14 15:28 | disposition home or self-care (01) ==
PROVIDERS: PCP Family Medicine; Visit Provider Internal Medicine Hematology & Oncology
DX: C50.912 Malignant neoplasm of unspecified site of left female breast (principal); Z17.0 Estrogen receptor positive status [ER+]
CPT/HCPCS: 36415; 80047; 80053; 85025

== ENCOUNTER 2023-06-17 00:14 | Day surgery (SDC) | payer MEDICARE, SELFPAY ==
[2023-06-08 09:26] VITALS: BMI 33.9
--- NOTE | 2023-06-08 09:43 | PC.NURSE ---
PRE-OP INSTRUCTIONS, PLEASE READ CAREFULLY Report to the Outpatient Waiting Room, entrance under the green pavilion located off [facility], at time _0630_ on date _06/17/23_. Planned Procedure Time: _0830_. Time changes happen often and if your time is changed the preop area will call you the afternoon before. - You and your visitor will be asked to self-screen and do not enter if you have any COVID symptoms. - A mask is optional within the hospital at this time. Patients may have clear liquids (water, carbonated beverages, clear teas, apple juice) until 3 hours prior to surgery (0530 AM) with a maximum of 20 ounces. - No food from midnight until time of surgery Take the following medications with a SIP of water the morning of surgery: _DULOXETINE, & TYLENOL, CYCLOBENZAPRINE IF NEEDED_ DO NOT STOP ANY OF YOUR OTHER PRESCRIPTION MEDICATIONS PRIOR TO SURGERY ?EXCEPT THE FOLLOWING Medications to discontinue - _ASPIRIN & IBUPROFEN INSTRUCTED BY DR. TINAJERO_ Medications to discontinue per ANESTHESIA - _MULTIVITAMIN 3 DAYS PRIOR TO SURGERY, Date to take last dose 06/13/23_ Please no make-up, nail vietnamese, hairspray, perfume, deodorant, or body powder the day of surgery. No jewelry (including any body piercings) or valuables the day of surgery, leave them at home. Please take a shower or bath the night before, or the morning of, surgery with an antibacterial soap. Wear comfortable, loose fitting clothing. - Jewelry must be removed prior to entering the operating room. Rings and piercings that are not removed may be cut off. - The hospital will not accept responsibility for valuables. - Please leave all valuables, including medications, at home the day of surgery. If you are going home after surgery, a licensed dedicated truck driver must drive you home. - NO public transportation without another adult if you receive anesthesia. - We recommend that an adult stay with you for 24 hours following discharge. - We also recommend that you do not drive, make important decision, drink alcoholic beverages, or take any drugs that were not prescribed by your health care provider for at least 24 hours after your discharge time. Follow any additional instructions given to you from your surgeon. If you or anyone in your household have experienced Covid symptoms in the past week, please notify your surgeon or the nurse liaison at the phone number below for possible testing. Telephone instructions given to _PATIENT_and asked if any additional questions and then verbalized understanding. Patient advised to call surgeon office or pre surgery nurse liaison [phone] if any additional questions.
[2023-06-17] VITALS (8 sets, daily range): BP systolic 110–135; BP diastolic 60–76; PULSE 80–112; RESP 8–20; TEMP 36.6–36.7; O2SAT 92–100
--- NOTE | ~2023-06-17 | XR_ITS ---
Supine and upright views of the abdomen Clinical history: Lithotripsy Findings: Bowel gas pattern is nonspecific. No evidence for obstruction or free air. Left lower pole stone or stones are present, measuring up to approximately 9 mm. Osseous structures are intact. Impression: Left lower pole renal stones, as above. Reviewed, dictated and finalized at [facility]. Impression: Left lower pole renal stones, as above.
--- NOTE | 2023-06-17 06:11 | WPDHPUPDATE1 ---
History and Physical Update Update Date/Time: 06/17/23 06:11 History and Physical has been reviewed, including an updated exam of the patient. There are NO changes in the patient's condition. Risks, benefits, and alternatives have been discussed and questions answered. Patient agrees to proceed with procedure.
[2023-06-17] MEDS: LACTATED RINGERS 1,000 ML 30 ML IV CONT ×2 (06:45→09:43)
[2023-06-17 07:24] LABS: Glucose Point of Care 260 mg/dl (65-105)
--- NOTE | 2023-06-17 07:44 | P.PNAN_ITS ---
Anes - Initial Pre Proc Eval Procedure: Operation Date: 06/17/23 08:30 Proposed Procedures p Left Extracorporeal Shock Wave Lithotripsy - Tra Connell MD Date/Time: 06/17/23 07:44 Surgeon: Tra Connell MD Pre Op Diagnosis: Left Renal Stone Patient Data Age: 67 Gender: F Height: 1.6 m Weight: 86.2 kg Last Vital Signs Temp 98.0 F 06/17/23 07:35 Pulse 102 H 06/17/23 07:35 Resp 16 06/17/23 07:35 BP 135/70 06/17/23 07:35 Pulse Ox 96 06/17/23 07:35 O2 Del Method Room Air 06/17/23 07:35 Allergies Allergy/AdvReac Type Severity Reaction Status Date / Time Penicillins Allergy Unknown Rash Verified 06/17/23 07:33 Home Medications Medication Instructions Recorded Confirmed Type ssotkziy-mbet-pxsj 8 mg-folic 400 1 tablet PO DAILY 09/22/22 06/17/23 History mcg-K 50 mcg-lutein 300 mcg tablet (Multivitamin Women 50 Plus) aspirin 81 mg tablet,delayed 81 mg PO HS 12/30/22 06/17/23 History release omeprazole 20 mg capsule,delayed 20 mg PO DAILY 12/30/22 06/17/23 History release duloxetine 30 mg capsule,delayed 30 mg PO DAILY #90 caps 02/16/23 06/17/23 Rx release (Cymbalta) blood-glucose meter #1 ea 03/31/23 06/17/23 Rx cyclobenzaprine 10 mg tablet 10 mg PO .hs PRN muscle spasm #14 03/31/23 06/17/23 Rx tabs gabapentin 300 mg capsule See Rx Instructions PO BID #90 caps 03/31/23 06/17/23 Rx rosuvastatin 20 mg tablet 20 mg PO DAILY #90 tabs 03/31/23 06/17/23 Rx blood sugar diagnostic (OneTouch #100 ea 04/04/23 06/17/23 Rx Verio test strips) lancets 33 gauge (OneTouch Delica #100 ea 04/04/23 06/17/23 Rx Plus Lancet) duloxetine 60 mg capsule,delayed 60 mg PO DAILY #90 caps 05/23/23 06/17/23 Rx release (Cymbalta) ibuprofen 600 mg tablet 600 mg PO TID PRN pain #20 tabs 06/02/23 06/17/23 Rx ondansetron 4 mg disintegrating 4 mg PO Q8H PRN nausea and 06/02/23 06/17/23 Rx tablet vomiting #7 tabs tamsulosin 0.4 mg capsule 0.4 mg PO HS #14 caps 06/02/23 06/17/23 Rx acetaminophen 500 mg tablet 1,000 mg PO Q6H PRN Pain 06/08/23 06/17/23 History trazodone 50 mg tablet 50 mg PO QHS 06/08/23 06/17/23 History trazodone 50 mg tablet See Rx Instructions .Route 06/09/23 06/17/23 Rx .COMPLEX #90 tabs dapagliflozin propanediol 10 mg 10 mg PO QAM #90 tabs 06/15/23 06/17/23 Rx tablet Laboratory Tests 06/17/23 07:20 POC Capillary Glucose 260 H mg/dl (65-105) Patient hx anesthesia problems: none Family hx anesthesia problems: none Results Review: All pre-operative results and documents have been reviewed as part of the pre- operative evaluation. [facility] Past Medical History Medical History Anemia Arm fracture, left Arthritis BMI 35.0-35.9,adult Bulging discs Depression Diverticulitis GERD (gastroesophageal reflux disease) H/O: HTN (hypertension) History of kidney stones Multiple. Hx: UTI (urinary tract infection) Hypercholesteremia Metastatic breast cancer Non-insulin dependent diabetes mellitus Obesity STACIE (obstructive sleep apnea) Sleep apnea Triple negative malignant neoplasm of breast Ulcer Surgical History Surgical History H/O breast surgery History of cholecystectomy History of hysterectomy History of lithotripsy x5. History of tonsillectomy Hx of tubal ligation Family History Family History Father Heart disease Diabetes mellitus Acute myocardial infarction Mother Breast cancer Sibling Breast cancer Stomach cancer Social History Social History Smoking status: Never smoker Second hand tobacco smoke exposure: No Alcohol intake: never Substance use: never Substance use type: does not use Lack of Transportation: No Lack of Food: Never True Current Housing: I Have Housing Concerned About Future Housing: No Difficulty Paying Gas/Electric Bills: No Difficulty Paying for Meds: No Currently Unemployed: No Education: High School Diploma/GED Difficulty w/ Childcare or Family Care: No Living arrangements: with family Occupation/Education: 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[employer] Gender identity (if verbalized by the patient): Female Spiritual care concerns: No Anes - Eval Final PreProcedure Day of Procedure 06/17/23 07:44 Patient weight: obese Heart: regular rate and rhythm Lungs: clear to auscultation Airway: Mallampati scale class III Neurological: alert and oriented Last oral intake: >/= 8 hours ASA classification: III Anesthetic plan: proceed Anesthesia type and monitoring: general LMA and standard monitoring Results Review: All pre-operative results and documents have been reviewed as part of the pre- operative evaluation. Pt reports no longer has STACIE after dental implant, poorly controlled DM, has been off meds for 3 days. FSBS 260. Informed Consent: The patient's anesthetic plan and its attendant risks and benefits were discussed with the patient/family/POA. Questions were solicited and answers provided to the satisfaction of the patient/family/POA.
[2023-06-17] MEDS: ceFAZolin 2 GM/D5W 50 ML 2 GM/50 ML BAG IVPB (08:29)
--- NOTE | 2023-06-17 08:44 | W.PM.PROC2 ---
Procedure Note - Detailed Date of Procedure 06/17/23 Pre-op Diagnosis Left Renal Stone Post-op Diagnosis Same Procedure Performed Lleft ESWL Surgeon Tra Connell MD Anesthesia General Description of Procedure The patient was brought to the operative suite where she was placed in the supine position on the Dornier lithotripsy table. The focal point of the lithotripter was placed at a 6mm left lower calyceal calculus. A total of 2500 shocks were delivered at a power setting of 4. There appeared to be good fragmentation of the stone. The patient tolerated the procedure well and was taken to the recovery room in good condition. Drains No Packing No Pathology Yes Complications No immediate complications Condition Stable
[2023-06-17] MEDS: oxyCODONE HCL (*CRX) 5 MG TAB IR PO (10:24)
[2023-06-17 12:07] LABS: Glucose Point of Care 256 mg/dl (65-105)
== END 2023-06-17 11:00 | disposition home or self-care (01) ==
PROVIDERS: PCP Family Medicine; Visit Provider Urology
PROC: (CPT 50590; principal; 2023-06-17 08:30)
DX: N20.0 Calculus of kidney (principal); K21.9 Gastro-esophageal reflux disease without esophagitis; F32.A Depression, unspecified; E78.00 Pure hypercholesterolemia, unspecified; E11.9 Type 2 diabetes mellitus without complications; G47.33 Obstructive sleep apnea (adult) (pediatric); Z85.3 Personal history of malignant neoplasm of breast; E66.9 Obesity, unspecified; Z68.33 Body mass index [BMI] 33.0-33.9, adult; Z79.82 Long term (current) use of aspirin; Z79.84 Long term (current) use of oral hypoglycemic drugs
CPT/HCPCS: 50590; 74018; 82948; A9270; J0690; J1100; J2405; J2704; J3010; J7120

== ENCOUNTER 2023-07-04 11:55 | Outpatient (CLI) | payer MEDICARE, SELFPAY ==
--- NOTE | ~2023-07-04 | XR_ITS ---
EXAM: XR abdomen/kub 1V DATE: 07/04/2023 12:11 HISTORY: N20.0 - Calculus of kidney . COMPARISON: 06/17/2023; CT abdomen pelvis 06/02/2023. FINDINGS: Clear lung bases. Normal bowel gas pattern. No organomegaly. Multiple calcifications proje ct over the left renal shadow. 9 mm calcification or cluster of calcifications in the inferior pole, with additional smaller calcifications in the mid and lower pole, better seen in today's study. Multi ple pelvic phleboliths. 1.7 cm left pelvic calcification, unchanged. Lumbar degenerative disc disease . Bilateral hip osteoarthritis. IMPRESSION: Left nephrolithiasis, apparently increased since the prior studies, which may represent s table nephrolithiasis with artifact from overlying bowel content given short interval change. Reviewed, dictated and finalized at location K. IMPRESSION: Left nephrolithiasis, apparently increased since the prior studies, which may represent stable nephrolithiasis with artifact from overlying bowel content given short interval change.
== END 2023-07-04 11:56 | disposition home or self-care (01) ==
LOC: ANHIMG 11:56
PROVIDERS: PCP Family Medicine; Visit Provider Urology
DX: N20.0 Calculus of kidney (principal)
CPT/HCPCS: 74018

== ENCOUNTER 2023-08-01 07:36 | Day surgery (SDC) | payer MEDICARE, SELFPAY ==
[2023-07-11 13:58] VITALS: BMI 32.8
--- NOTE | 2023-07-26 10:06 | PM.HPGS ---
History of Present Illness History of Present Illness Consent: Risks, benefits, and alternatives have been discussed and questions answered. Patient agrees to proceed with procedure. Chief complaint: Screening for neoplasm of colon Narrative: Shayna Swenson is a 67 year old female referred for colon cancer screening. Review of Systems Review of Systems: All systems reviewed & are unremarkable except as noted in HPI and below PMFSH Past Medical History Medical History Anemia Arm fracture, left Arthritis Bulging discs Cyst Depression Diverticulitis GERD (gastroesophageal reflux disease) H/O: HTN (hypertension) History of kidney stones Multiple. Hx: UTI (urinary tract infection) Hypercholesteremia Metastatic breast cancer Non-insulin dependent diabetes mellitus Obesity STACIE (obstructive sleep apnea) Peripheral neuropathy due to chemotherapy Sleep apnea Triple negative malignant neoplasm of breast Ulcer Surgical History Surgical History H/O breast surgery History of cholecystectomy History of hysterectomy History of lithotripsy x5. History of tonsillectomy Hx of tubal ligation Family History Family History Father Heart disease Diabetes mellitus Acute myocardial infarction Mother Breast cancer Sibling Breast cancer Stomach cancer Social History Social History Smoking status: Never smoker Second hand tobacco smoke exposure: No Alcohol intake: never Substance use: never Substance use type: does not use Lack of Transportation: No Lack of Food: Never True Current Housing: I Have Housing Concerned About Future Housing: No Difficulty Paying Gas/Electric Bills: No Difficulty Paying for Meds: No Currently Unemployed: No Education: High School Diploma/GED Difficulty w/ Childcare or Family Care: No Living arrangements: with family Occupation/Education: 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[employer] Gender identity (if verbalized by the patient): Female Spiritual care concerns: No Meds Home Medications and Allergies Home Medications Medication Instructions Recorded Confirmed Type filszfmn-nocd-rfaj 8 mg-folic 400 1 tablet PO DAILY 09/22/22 08/01/23 History mcg-K 50 mcg-lutein 300 mcg tablet (Multivitamin Women 50 Plus) aspirin 81 mg tablet,delayed 81 mg PO HS 12/30/22 08/01/23 History release omeprazole 20 mg capsule,delayed 20 mg PO DAILY 12/30/22 08/01/23 History release duloxetine 30 mg capsule,delayed 30 mg PO DAILY #90 caps 02/16/23 08/01/23 Rx release (Cymbalta) blood-glucose meter #1 ea 03/31/23 07/07/23 Rx gabapentin 300 mg capsule See Rx Instructions PO BID #90 caps 03/31/23 08/01/23 Rx rosuvastatin 20 mg tablet 20 mg PO DAILY #90 tabs 03/31/23 08/01/23 Rx blood sugar diagnostic (OneTouch #100 ea 04/04/23 07/07/23 Rx Verio test strips) lancets 33 gauge (OneTouch Delica #100 ea 04/04/23 07/07/23 Rx Plus Lancet) duloxetine 60 mg capsule,delayed 60 mg PO DAILY #90 caps 05/23/23 08/01/23 Rx release (Cymbalta) trazodone 50 mg tablet 50 mg PO QHS 06/08/23 08/01/23 History trazodone 50 mg tablet See Rx Instructions .Route 06/09/23 08/01/23 Rx .COMPLEX #90 tabs dapagliflozin propanediol 10 mg 10 mg PO QAM 07/07/23 08/01/23 History tablet losartan 50 mg tablet 50 mg PO DAILY 07/07/23 08/01/23 History semaglutide 0.25 mg or 0.5 mg (2 0.25 mg (0.368 mL) subcut WEEKLY 07/07/23 08/01/23 Rx mg/3 mL) subcutaneous pen injector #3 mL (Ecorithm) Allergies Allergy/AdvReac Type Severity Reaction Status Date / Time Penicillins Allergy Unknown Rash Verified 08/01/23 08:43 Exam Resp: Auscultation: clear to auscultation bilaterally Car
[2023-08-01 08:45] VITALS: BP 143/77; PULSE 107; RESP 16; TEMP 37; O2SAT 98
--- NOTE | 2023-08-01 08:48 | WPDANESEPPF ---
Anes - Initial Pre Proc Eval Procedure: Operation Date: 08/01/23 10:00 Proposed Procedures p Screening Colonoscopy - Ry Villa MD Date/Time: 08/01/23 08:48 Surgeon: Ry Villa MD Pre Op Diagnosis: Screening for neoplasm of colon Patient Data Age: 67 Gender: F Height: 1.6 m Weight: 82.3 kg Last Vital Signs Temp 37.0 C 08/01/23 08:45 Pulse 107 H 08/01/23 08:45 Resp 16 08/01/23 08:45 BP 143/77 H 08/01/23 08:45 Pulse Ox 98 08/01/23 08:45 O2 Del Method Room Air 08/01/23 08:45 Allergies Allergy/AdvReac Type Severity Reaction Status Date / Time Penicillins Allergy Unknown Rash Verified 08/01/23 08:43 Home Medications Medication Instructions Recorded Confirmed Type vtwyrmgt-izpl-iyye 8 mg-folic 400 1 tablet PO DAILY 09/22/22 08/01/23 History mcg-K 50 mcg-lutein 300 mcg tablet (Multivitamin Women 50 Plus) aspirin 81 mg tablet,delayed 81 mg PO HS 12/30/22 08/01/23 History release omeprazole 20 mg capsule,delayed 20 mg PO DAILY 12/30/22 08/01/23 History release duloxetine 30 mg capsule,delayed 30 mg PO DAILY #90 caps 02/16/23 08/01/23 Rx release (Cymbalta) blood-glucose meter #1 ea 03/31/23 07/07/23 Rx gabapentin 300 mg capsule See Rx Instructions PO BID #90 caps 03/31/23 08/01/23 Rx rosuvastatin 20 mg tablet 20 mg PO DAILY #90 tabs 03/31/23 08/01/23 Rx blood sugar diagnostic (OneTouch #100 ea 04/04/23 07/07/23 Rx Verio test strips) lancets 33 gauge (OneTouch Delica #100 ea 04/04/23 07/07/23 Rx Plus Lancet) duloxetine 60 mg capsule,delayed 60 mg PO DAILY #90 caps 05/23/23 08/01/23 Rx release (Cymbalta) trazodone 50 mg tablet 50 mg PO QHS 06/08/23 08/01/23 History trazodone 50 mg tablet See Rx Instructions .Route 06/09/23 08/01/23 Rx .COMPLEX #90 tabs dapagliflozin propanediol 10 mg 10 mg PO QAM 07/07/23 08/01/23 History tablet losartan 50 mg tablet 50 mg PO DAILY 07/07/23 08/01/23 History semaglutide 0.25 mg or 0.5 mg (2 0.25 mg (0.368 mL) subcut WEEKLY 07/07/23 08/01/23 Rx mg/3 mL) subcutaneous pen injector #3 mL (Ozempic) Patient hx anesthesia problems: none Family hx anesthesia problems: none Results Review: All pre-operative results and documents have been reviewed as part of the pre-operative evaluation. [facility] Past Medical History Medical History Anemia Arm fracture, left Arthritis Bulging discs Cyst Depression Diverticulitis GERD (gastroesophageal reflux disease) H/O: HTN (hypertension) History of kidney stones Multiple. Hx: UTI (urinary tract infection) Hypercholesteremia Metastatic breast cancer Non-insulin dependent diabetes mellitus Obesity STACIE (obstructive sleep apnea) Peripheral neuropathy due to chemotherapy Sleep apnea Triple negative malignant neoplasm of breast Ulcer Surgical History Surgical History H/O breast surgery History of cholecystectomy History of hysterectomy History of lithotripsy x5. History of tonsillectomy Hx of tubal ligation Family History Family History Father Heart disease Diabetes mellitus Acute myocardial infarction Mother Breast cancer Sibling Breast cancer Stomach cancer Social History Social History Smoking status: Never smoker Second hand tobacco smoke exposure: No Alcohol intake: never Substance use: never Substance use type: does not use Lack of Transportation: No Lack of Food: Never True Current Housing: I Have Housing Concerned About Future Housing: No Difficulty Paying Gas/Electric Bills: No Difficulty Paying for Meds: No Currently Unemployed: No Education: High School Diploma/GED Difficulty w/ Childcare or Family Care: No Living arrangements: with family Occu
[2023-08-01] MEDS: LACTATED RINGERS 1,000 ML 150 ML IV CONT (08:52)
[2023-08-01 08:56] LABS: Glucose Point of Care 135 mg/dl (65-105)
[2023-08-01 10:24] VITALS: BP 119/57; PULSE 90; RESP 14; O2SAT 95
[2023-08-01 10:34] VITALS: BP 114/67; PULSE 86; RESP 15; O2SAT 96
[2023-08-01 10:44] VITALS: BP 138/63; PULSE 94; RESP 16; O2SAT 97
--- NOTE | 2023-08-01 10:57 | WPDANESPN ---
Anes - Prog Note Post-Op Date/Time: 08/01/23 10:57 Cardiovascular status: normal Respiratory status: normal Airway patency: baseline Mental status: baseline Post-Op hydration status: normal Vital Signs: Last Vital Signs Temp 37.0 C 08/01/23 08:45 Pulse 94 08/01/23 10:44 Resp 16 08/01/23 10:44 BP 138/63 08/01/23 10:44 Pulse Ox 97 08/01/23 10:44 O2 Del Method Room Air 08/01/23 10:44 Pain Score (VAS): 0/10 I/O: Intake & Output 07/31/23 08/01/23 08/01/23 23:59 07:59 15:59 Intake Total 600 Balance 600 08/01/23 08:48 POC Capillary Glucose 135 H Patient Feedback: Patient satisfied with anesthetic care.
== END 2023-08-01 10:56 | disposition home or self-care (01) ==
PROVIDERS: PCP Family Medicine; Visit Provider Internal Medicine Gastroenterology
PROC: 0DJD8ZZ Inspection of Lower Intestinal Tract, Via Natural or Artificial Opening Endoscopic (ICD-10-PCS; CPT 45378; principal; 2023-08-01 10:00)
DX: Z12.11 Encounter for screening for malignant neoplasm of colon (principal); D12.5 Benign neoplasm of sigmoid colon; K57.30 Diverticulosis of large intestine without perforation or abscess without bleeding
CPT/HCPCS: 45385; 45381

== ENCOUNTER 2023-08-01 13:10 | Outpatient (NON) | payer MEDICARE, SELFPAY | END 2023-08-01 13:11 | disposition home or self-care (01) | LOC: ANHLAB 08-02 13:13 | PROVIDERS: PCP Family Medicine; Visit Provider Internal Medicine Gastroenterology | DX: Z12.11 Encounter for screening for malignant neoplasm of colon (principal); D12.5 Benign neoplasm of sigmoid colon | CPT/HCPCS: 88305 ==

== ENCOUNTER 2023-09-02 12:33 | Outpatient (CLI) | payer MEDICARE, SELFPAY ==
--- NOTE | ~2023-09-02 | US_ITS ---
EXAMINATION: US breast LT limited HISTORY: Seroma TECHNIQUE: High resolution limited left breast ultrasound was performed. COMPARISON: 11/16/2022 FINDINGS: At the 3:00 position left breast, 6 cm from the nipple, there is a 5.9 x 2.9 x 5.9 cm complex cystic mass/fluid collection, with multiple internal septations and small amount of internal debris. Several septations are somewhat thick/irregular. IMPRESSION: 5.9 x 2.9 x 5.9 cm complex cystic mass at the 3 clock position left breast, which could be consisten t with history of seroma. There are multiple septations and small amount of internal debris, with alfredo e septations being somewhat thickened. Clinical follow-up advised. BI-RADS category 3, probably benign findings. Reviewed, dictated and finalized at location . IMPRESSION: 5.9 x 2.9 x 5.9 cm complex cystic mass at the 3 clock position left breast, wh ich could be consistent with history of seroma. There are multiple septations a nd small amount of internal debris, with some septations being somewhat thicken ed. Clinical follow-up advised. BI-RADS category 3, probably benign findings.
== END 2023-09-02 12:34 | disposition home or self-care (01) ==
LOC: ANHIMG 12:34
PROVIDERS: PCP Family Medicine; Visit Provider Surgery
DX: N64.89 Other specified disorders of breast (principal); Z85.3 Personal history of malignant neoplasm of breast; R92.8 Other abnormal and inconclusive findings on diagnostic imaging of breast
CPT/HCPCS: 76642

== ENCOUNTER 2023-10-07 11:11 | Outpatient (CLI) | payer MEDICARE, SELFPAY ==
[2023-10-07 12:35] LABS: Anion Gap 14 mmol/L (4-12); Blood Urea Nitrogen 18 mg/dL (7-17); Calcium 9.4 mg/dL (8.4-10.2); Carbon Dioxide 25 mmol/L (22-30); Chloride 100 mmol/L (98-107); Estimated Glomerular Filt Rate > 60; Glucose 179 mg/dL (65-110); Potassium 4.2 mmol/L (3.4-5.0); Sodium 139 mmol/L (137-145)
== END 2023-10-07 11:12 | disposition home or self-care (01) ==
PROVIDERS: Anesthesiology; PCP Family Medicine; Visit Provider Surgery
DX: Z01.818 Encounter for other preprocedural examination (principal); E11.9 Type 2 diabetes mellitus without complications; N64.89 Other specified disorders of breast
CPT/HCPCS: 36415; 80048; 86850; 86900; 86901

== ENCOUNTER 2023-10-11 01:33 | Day surgery (SDC) | payer MEDICARE, SELFPAY ==
[2023-10-06 15:15] VITALS: BMI 32.4
--- NOTE | 2023-10-06 15:38 | PC.NURSE ---
Report to the Outpatient Waiting Room, entrance under the green pavilion located off [facility], at time ___6:00AM____ on date __10/11/23 . Planned Procedure Time: __7:30AM . Time changes happen often and if your time is changed the preop area will call you the afternoon before. - You and your visitor will be asked to self-screen and do not enter if you have any COVID symptoms. - A mask is optional within the hospital at this time. Patients may have clear liquids (water, carbonated beverages, clear teas, apple juice) until 3 hours prior to surgery with a maximum of 20 ounces. - No food from midnight until time of surgery. Take the following medications with a SIP of water the morning of surgery: DULOXETINE. MAY TAKE GABAPENTIN NEEDED. DO NOT STOP ANY OF YOUR OTHER PRESCRIPTION MEDICATIONS PRIOR TO SURGERY ?EXCEPT THE FOLLOWING Medications to discontinue per physician NONE Date to take last dose Please no make-up, nail jamaican, hairspray, perfume, deodorant, or body powder the day of surgery. No jewelry (including any body piercings) or valuables the day of surgery, leave them at home. Please take a shower or bath the night before, or the morning of, surgery with an antibacterial soap. Wear comfortable, loose fitting clothing. - Jewelry must be removed prior to entering the operating room. Rings and piercings that are not removed may be cut off. - The hospital will not accept responsibility for valuables. - Please leave all valuables, including medications, at home the day of surgery. If you are going home after surgery, a licensed cdl truck driver must drive you home. - NO public transportation without another adult if you receive anesthesia. - We recommend that an adult stay with you for 24 hours following discharge. - We also recommend that you do not drive, make important decision, drink alcoholic beverages, or take any drugs that were not prescribed by your health care provider for at least 24 hours after your discharge time. Follow any additional instructions given to you from your surgeon. If you or anyone in your household have experienced Covid symptoms in the past week, please notify your surgeon or the nurse liaison at the phone number below for possible testing. Telephone instructions given to ___PATIENT and asked if any additional questions and then verbalized understanding. Patient advised to call surgeon office or pre surgery nurse liaison [phone] if any additional questions.
[2023-10-11] VITALS (10 sets, daily range): BP systolic 109–136; BP diastolic 60–79; PULSE 100–113; RESP 12–18; TEMP 36–37; O2SAT 94–100
[2023-10-11] MEDS: LACTATED RINGERS 1,000 ML 30 ML IV CONT ×2 (06:30→11:01)
[2023-10-11 06:46] LABS: Glucose Point of Care 158 mg/dl (65-105)
--- NOTE | 2023-10-11 07:05 | WPDHPUPDATE1 ---
History and Physical Update Update Date/Time: 10/11/23 07:05 - Bilateral total mastectomies, possible adjacent tissue transfer History and Physical has been reviewed, including an updated exam of the patient. There are NO changes in the patient's condition. Risks, benefits, and alternatives have been discussed and questions answered. Patient agrees to proceed with procedure.
[2023-10-11] MEDS: ACETAMINOPHEN 500 MG TABLET 1000 MG PO (07:19)
--- NOTE | 2023-10-11 07:28 | WPDANESEPPF ---
Anes - Initial Pre Proc Eval Procedure: Operation Date: 10/11/23 07:30 Proposed Procedures p Left Total Mastectomy, Right Prophylactic Mastectomy, Possible Adjacent Tissue Transfer - Colleen Munroe MD Date/Time: 10/11/23 07:28 Surgeon: Colleen Munroe MD Pre Op Diagnosis: recurrent seroma breast Patient Data Age: 68 Gender: F Height: 1.6 m Weight: 83 kg Allergies Allergy/AdvReac Type Severity Reaction Status Date / Time Penicillins Allergy Unknown Rash Verified 10/11/23 07:17 Home Medications Medication Instructions Recorded Confirmed Type unttgycl-enlp-cyck 8 mg-folic 400 1 tablet PO DAILY 09/22/22 10/11/23 History mcg-K 50 mcg-lutein 300 mcg tablet (Multivitamin Women 50 Plus) aspirin 81 mg tablet,delayed 81 mg PO HS 12/30/22 10/11/23 History release omeprazole 20 mg capsule,delayed 20 mg PO DAILY 12/30/22 10/11/23 History release blood-glucose meter #1 ea 03/31/23 10/11/23 Rx rosuvastatin 20 mg tablet 20 mg PO DAILY #90 tabs 03/31/23 10/11/23 Rx blood sugar diagnostic (OneTouch #100 ea 04/04/23 10/11/23 Rx Verio test strips) lancets 33 gauge (OneTouch Delica #100 ea 04/04/23 10/11/23 Rx Plus Lancet) trazodone 50 mg tablet 50 mg PO QHS 06/08/23 10/11/23 History losartan 50 mg tablet 50 mg PO DAILY 07/07/23 10/11/23 History dapagliflozin propanediol 10 mg 10 mg PO QAM #90 tabs 09/12/23 10/11/23 Rx tablet semaglutide 1 mg/dose (4 mg/3 mL) 1 mg (0.75 mL) subcut WEEKLY #3 mL 09/28/23 10/11/23 Rx subcutaneous pen injector (Ozempic) duloxetine 30 mg capsule,delayed 30 mg PO HS 10/06/23 10/11/23 History release (Cymbalta) duloxetine 60 mg capsule,delayed 60 mg PO QAM 10/06/23 10/11/23 History release (Cymbalta) gabapentin 300 mg capsule See Rx Instructions PO BID #90 caps 10/10/23 10/11/23 Rx Laboratory Tests 10/11/23 06:43 POC Capillary Glucose 158 H mg/dl (65-105) Patient hx anesthesia problems: none Family hx anesthesia problems: none Results Review: All pre-operative results and documents have been reviewed as part of the pre-operative evaluation. [facility] Past Medical History Medical History Anemia Arm fracture, left Arthritis Bulging discs Cyst Depression Diverticulitis GERD (gastroesophageal reflux disease) H/O: HTN (hypertension) History of kidney stones Multiple. Hx: UTI (urinary tract infection) Hypercholesteremia Metastatic breast cancer Non-insulin dependent diabetes mellitus Obesity STACIE (obstructive sleep apnea) Peripheral neuropathy due to chemotherapy Sleep apnea Triple negative malignant neoplasm of breast Ulcer Surgical History Surgical History H/O breast surgery History of cholecystectomy History of hysterectomy History of lithotripsy x5. History of tonsillectomy Hx of tubal ligation Family History Family History Father Heart disease Diabetes mellitus Acute myocardial infarction Mother Breast cancer Sibling Breast cancer Stomach cancer Social History Social History Smoking status: Never smoker Second hand tobacco smoke exposure: No Alcohol intake: never Substance use: never Substance use type: does not use Do You Feel Safe in your Home?: Yes Lack of Transportation: No Lack of Food: Never True Current Housing: I Have Housing Concerned About Future Housing: No Difficulty Paying Gas/Electric Bills: No Difficulty Paying for Meds: No Currently Unemployed: No Education: Trade/Vocational Certificate Difficulty w/ Childcare or Family Care: No Living arrangements: with family Additional [facility] arrangements comments: [facility] Occupation/Education: retired Additional occupation/education comments: finance/Pt time
[2023-10-11] MEDS: ceFAZolin 2 GM/D5W 50 ML 2 GM/50 ML BAG IVPB (07:37)
[2023-10-11] MEDS: BUPIVACAINE/EPINEPHRINE 0.5% 50 ML VIAL 40 ML INFILTRATE (08:10)
--- NOTE | 2023-10-11 09:05 | SUR.OPER ---
RIGHT BREAST SURGICAL START TIME 0855.
--- NOTE | 2023-10-11 10:51 | P.OP_ITS ---
Procedure Note - Detailed Date of Procedure 10/11/23 Pre-op Diagnosis 1. Recurrent left seroma breast 2. History of left lumpectomy for left breast cancer Post-op Diagnosis Same Procedure Performed 1. Left total mastectomy 2. Left adjacent tissue transfer 21cm x 4cm 3. Right prophylactic total mastectomy 4. Right adjacent tissue transfer 20cm x 7cm Surgeon Colleen Munroe MD [employer] Valencia Fonseca PA-C Anesthesia General Description of Procedure Patient was identified in the preoperative holding area brought to the operating room suite.? She was placed supine operating table sequential compression devices were applied. General anesthesia was induced without difficulty. [facility] chest areas were prepped draped in sterile fashion.? Decision was made to start with the left side.? An elliptical incision encompassing the nipple areolar complex was made and dissection was carried down through the subcutaneous tissue and continued through the thin areolar tissue plane between the subcutaneous tissue with the breast tissue superiorly to the inferior border of the clavicle.? We then continued our dissection medially to the lateral aspect of the sternum, inferiorly to the inframammary fold and laterally to latissimus.? Once this was performed the breast tissue along with the pectoralis fascia was dissected off the pectoralis muscle posteriorly.? The mastectomy specimen was then marked short stitch superior long stitch lateral stitch lateral for orientation.? The specimen was then sent to pathology as a fresh specimen.? Hemostasis was assured.? Attention was then turned to the right breast. An elliptical incision was again made around the right nipple areola complex, dissection was carried down to the subcutaneous tissue until the thin areolar tissue plane was encountered.? This was then dissected superiorly to the inferior aspect of the clavicle, medially to the lateral aspect of the sternum, laterally to the latissimus dorsi, and inferiorly to the inframammary fold.? The breast along with the pectoralis fascia was then dissected off the pectoralis muscle and the specimen was oriented with a short stitch superiorly and long stitch laterally, and sent to pathology as the fresh specimen.? Hemostasis was assured.? On the left side, one 10 Fr flat drain as well as a 15Fr round Solo drain were placed and on the right side one 10Fr flat drains was placed above the pectoralis muscle and secured to the skin with silk suture. ?Given the redundant skin flap inferiorly, decision was made to use the inferior skin flaps to create a wadsworth inferior mound and give a better contour to the breast.? The defect for the right side was 20cm x 7cm cm and the left side was 21cm x 4cm.? The inferior skin flap was de-epithelialized bilaterally and carefully tacked to the pectoralis muscle with interrupted 3-0 Vicryl.? The superior mastectomy flap was then advanced over the inferior flap and secured to the inferior flap dermis using 3-0 Vicryl interrupted for the deep dermal layer followed by a 4-0 Monocryl in a subcuticular running fashion.? Dermabond was applied followed by sterile compression dressing. All needles counts were correct as reported by the operating room staff. Patient tolerated the procedure well with no immediate complications. Valencia Fonseca PA-C assisted with retraction and positioning for the entirety of the case. Estimated Blood Loss 30 Drains Yes Pathology Yes Complications No immediate complications Condition Stable Disposition PACU [facility] Billing Surgery - Charge Forward: Surgery Billing (CPT 90074 - L, 77906 - 59 R, 80281 - 59 L, 02843 - 59 L x2, 33874 - 59 R, 88724 - 59 R x2)
[2023-10-11 11:05] LABS: Glucose Point of Care 198 mg/dl (65-105)
--- NOTE | 2023-10-11 12:21 | ADMGEN ---
This patient, Shayna Swenson, was admitted to OB 2nd Floor Room 287-00. Patient/family oriented to hospital policies and general routines including ID bracelet, bed and alarms, visiting hours, pain management, procedures, bathroom and other care routines, personal items, smoking policy, room service/diet, and visiting hours. Information on how to activate the Rapid Response Team has been discussed. Patient/Family are encouraged to report perceived risks to care and to ask questions if they do not understand what they are told or what they should do.
[2023-10-11] MEDS: HYDROmorphone HCL INJ (*CRX) 1 MG/ML SYR IV PUSH (12:51)
[2023-10-11] MEDS: LACTATED RINGERS 1,000 ML 100 ML IV CONT (12:55)
[2023-10-11] MEDS: ACETAMINOPHEN 325 MG TABLET 650 MG PO (13:35)
--- NOTE | 2023-10-11 15:41 | WPDCN ---
Assessment and Plan Assessment and plan (1) Recurrent seroma of breast: Code(s): N64.89 - Other specified disorders of breast Status: Acute Assessment and Plan: Postoperative day 0 status post left total mastectomy right prophylactic total mastectomy with adjacent tissue transfer. Wound care, pain control, and DVT prophylaxis deferred to primary service. (2) Type 2 diabetes mellitus: Code(s): E11.9 - Type 2 diabetes mellitus without complications Status: Acute Assessment and Plan: Per patient report, recent hemoglobin A1c was 7.4%. Resume dapagliflozin and semaglutide injections on discharge. Initiate sliding scale insulin, Accu-Cheks, and hypoglycemic protocol. (3) Hypertension: Code(s): I10 - Essential (primary) hypertension Status: Acute Assessment and Plan: Pressures were reviewed and they have been stable postoperatively. Antihypertensives will be reviewed and resumed as appropriate. (4) Gastroesophageal reflux disease: Code(s): K21.9 - Gastro-esophageal reflux disease without esophagitis Status: Acute Assessment and Plan: Continue PPI. (5) Hyperlipidemia: Code(s): E78.5 - Hyperlipidemia, unspecified Status: Acute Assessment and Plan: Continue statin and check LFTs. Plan Thank you for allowing us to participate in this patient's care. Please do not hesitate to contact us with any questions. HPI Data of Consult Date/Time: 10/11/23 15:40 Requesting Physician: Colleen Munroe MD Consult Narrative Reason for consult: Medical management. Narrative: This is a pleasant 68-year-old female who hypertension, hyperlipidemia, type 2 diabetes mellitus, gastroesophageal reflux disease, and breast cancer whom the hospitalist service has been consulted for help managing her medical conditions postoperatively. She has a history left-sided breast cancer status post lumpectomy and chemoradiation. Unfortunately she has had ongoing issues with recurrent left breast seroma despite more conservative treatment. Today she elected for left total mastectomy and right prophylactic total mastectomy with adjacent tissue transfers bilaterally. Her surgery was performed under general anesthesia with no immediate complications documented an estimated blood loss of 30 mL. Postoperatively she has done quite well and her pain is well controlled. She denies fever, chills, sweats, chest pain, shortness a breath, nausea, and vomiting. With regards to her chronic medical conditions, her hemoglobin A1c has dropped 1.5% in the last 3 months as she is more mindful and has lost nearly 20 lb. She believes her hypertension, hyperlipidemia, and GERD are well controlled on medication. Review of Systems Review of Systems: 12 systems were reviewed and are negative except for as per HPI. 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 Type 2 diabetes mellitus Surgical History Surgical History History of appendectomy History of cholecystectomy History of hysterectomy History of lithotripsy x5. History of lumpectomy of left breast History of tonsillectomy History of tubal ligation Family History Family History Father Heart disease Diabetes mellitus Acute myocardial infarction Mother Breast cancer Sibling Breast cancer Stomach cancer Social History Social History (Updated 10/11/23 @ 19:08 by Dolores
[2023-10-11] MEDS: HYDROcodone/acetaminophen (*CRX) 10-325 MG TABLET 1 TAB PO ×2 (16:10→21:50)
[2023-10-11] MEDS: DOCUSATE SODIUM 100 MG CAPSULE PO (16:10)
[2023-10-11 17:46] LABS: Glucose Point of Care 187 mg/dl (65-105)
[2023-10-11] MEDS: GABAPENTIN 300 MG CAPSULE 600 MG PO (21:50)
[2023-10-11] MEDS: DULoxetine HCL 30 MG CAPSULE.DR PO (21:50)
[2023-10-11] MEDS: traZODone HCL 50 MG TABLET PO (21:50)
[2023-10-11] MEDS: ASPIRIN 81 MG ENTERIC TABLET PO (21:50)
[2023-10-11 22:19] LABS: Glucose Point of Care 199 mg/dl (65-105)
[2023-10-12 00:02] VITALS: BP 129/69; PULSE 96; RESP 14; TEMP 36.7; O2SAT 95
[2023-10-12 05:26] VITALS: BP 115/63; PULSE 91; RESP 14; TEMP 36.9; O2SAT 95
[2023-10-12 06:28] LABS: Hematocrit 37.9 % (37.0-47.0); Hemoglobin 12.4 g/dL (12.0-15.0); Mean Corpuscular HGB Conc 32.7 g/dl (32-36); Mean Corpuscular Hemoglobin 30.2 pg (26-34); Mean Corpuscular Volume 92.4 fl (80-100); Mean Platelet Volume 9.8 fl (7.4-10.4); Platelet Count Result 270 k/mm3 (150-375); Red Cell Distribution Width 13.1 % (11.5-14.5); White Blood Count 11.8 K/mm3 (4.5-10.0)
[2023-10-12] MEDS: EMPAGLIFLOZIN 25 MG TABLET BY MOUTH (06:51)
[2023-10-12] MEDS: ACETAMINOPHEN 325 MG TABLET 650 MG PO ×2 (06:51)
[2023-10-12] MEDS: PANTOPRAZOLE 40 MG TABLET PO (06:51)
[2023-10-12] MEDS: ROSUVASTATIN 20 MG TABLET PO (06:51)
[2023-10-12] MEDS: DULoxetine HCL 60 MG CAPSULE.DR PO (06:51)
[2023-10-12] MEDS: DOCUSATE SODIUM 100 MG CAPSULE PO (06:51)
[2023-10-12] MEDS: THERAPEUTIC MULTIVITAMINS/MINERALS TAB (*BKC) 1 TABLET PO (06:52)
[2023-10-12 07:25] LABS: Alanine Aminotransferase 17 U/L (6-35); Albumin Level 3.6 g/dL (3.5-5.1); Alkaline Phosphatase 67 U/L (38-126); Anion Gap 7 mmol/L (4-12); Aspartate Amino Transferase 24 U/L (14-36); Bilirubin,Total 0.8 mg/dL (0.2-1.3); Blood Urea Nitrogen 12 mg/dL (7-17); Calcium 8.4 mg/dL (8.4-10.2); Carbon Dioxide 29 mmol/L (22-30); Chloride 101 mmol/L (98-107); Estimated CRCL calculation 76 ml/min; Estimated Glomerular Filt Rate > 60; Glucose 142 mg/dL (65-110); Magnesium 1.7 mg/dL (1.6-2.3); Potassium 3.7 mmol/L (3.4-5.0); Sodium 137 mmol/L (137-145)
[2023-10-12 07:30] VITALS: BP 114/61; PULSE 82; RESP 16; TEMP 36.8; O2SAT 97
[2023-10-12 07:50] LABS: Glucose Point of Care 134 mg/dl (65-105)
--- NOTE | 2023-10-12 09:24 | PM.PNGS ---
Progress Note: A&P Assessment and Plan (1) Recurrent seroma of breast: Code(s): N64.89 - Other specified disorders of breast Status: Acute Plan 68 y/o female h/o left breast cancer and lumpectomy with radiation and recurrent seroma/wound, recovering well POD#1 s/p bilateral mastectomy, drain output improving. Reviewed impression and healing expectations. reviewed signs/symtpoms of concern. reviewed pain management and abx. reviewed drain care. reviewed dressing/activity instructions. all questions answered. pt to be discharged home today. Plan 1) dc home today 2) drain care 3) follow up 1 week in office with drain log Subjective Subjective Date/Time Seen: 10/12/23 09:24 seen at bedside, no issues overnight, pain well managed with PO medication. ambulating and voiding without issue. tolerating PO diet. pt denies pain, fever/chills, bleeding/redness, interval change in breast size, SOB, BLE pain, N/V/D, OZUNA/dizziness. Would like to go home today if possible. Exam Const: General: cooperative and healthy appearing Other: sitting comfortably in bed HENMT: Head: normal to inspection Eyes: Other: anicteric Chest: Other: binder in c/d/i, mastectomy incisions with dermabond in place bilaterally, skin flaps warm and well perfused, no mass/seroma. drains maintaining neg pressure, minimal serosanguinous drainage. no erythema/ecchymosis, minimal skin flap edema bilaterally. Resp: Effort & Inspection: normal respiratory effort Cardio: Other: radial pulse RRR GI: Other: soft nontender Objective Data Vital Signs Vital Signs: Vital Signs - 24 hr 10/11/23 11:01 10/11/23 11:15 10/11/23 11:30 Temperature 36.1 C L Pulse Rate 113 H 105 H 106 H Respiratory Rate 14 14 14 Blood Pressure 124/60 121/60 120/66 Pulse Oximetry 99 100 97 Oxygen Delivery Simple Face Mask Simple Face Mask Room Air Oxygen Flow Rate 8 8 10/11/23 11:45 10/11/23 12:00 10/11/23 12:10 Temperature Pulse Rate 105 H 106 H 104 H Respiratory Rate 14 14 14 Blood Pressure 109/62 118/64 118/68 Pulse Oximetry 94 94 94 Oxygen Delivery Room Air Room Air Room Air Oxygen Flow Rate 10/11/23 12:25 10/11/23 12:25 10/11/23 15:45 Temperature 37.0 C Pulse Rate 110 H Respiratory Rate 12 Blood Pressure 119/70 Pulse Oximetry 96 96 96 Oxygen Delivery Nasal Cannula Nasal Cannula Oxygen Flow Rate 2 2 10/11/23 15:45 10/11/23 20:20 10/11/23 20:20 Temperature 36.6 C 36.7 C Pulse Rate 112 H 103 H Respiratory Rate 16 14 Blood Pressure 135/72 136/79 Pulse Oximetry 96 96 96 Oxygen Delivery Nasal Cannula Oxygen Flow Rate 2 10/12/23 00:02 10/12/23 00:02 10/12/23 05:26 Temperature 36.7 C Pulse Rate 96 96 91 Respiratory Rate 14 14 14 Blood Pressure 129/69 Pulse Oximetry 95 95 95 Oxygen Delivery Nasal Cannula Nasal Cannula Oxygen Flow Rate 2 2 10/12/23 05:26 10/12/23 07:30 Temperature 36.9 C 36.8 C Pulse Rate 91 82 Respiratory Rate 14 16 Blood Pressure 115/63 114/61 Pulse Oximetry 95 97 Oxygen Delivery Oxygen Flow Rate Intake/Output Intake/Output: Intake & Output 10/09/23 10/10/23 10/11/23 10/12/23 23:59 23:59 23:59 23:59 Intake Total 650 300 Output Total 2189 510 Lqinvjo -[id number] -354 Meds/Results Medications: Active Medications Generic Name Dose Route Start Last Admin Trade Name Freq PRN Reason Stop Dose Admin Acetaminophen 650 mg 10/11/23 12:14 10/12/23 06:51 Acetaminophen 325 Mg Tablet PO 650 mg Q6HR JIMMIE Administration Hydrocodone Bitart/Acetaminophen 1 tab 10/11/23 12:14 Hydrocodone/Acetaminophen (*Crx) 5-325 Mg Tablet PO Q4H PRN Pain Rated 4-6 Hydrocodone Bitart/Acetaminophen 1 tab 10/11/23 12:14 10/11/23 21:50 Hydrocodone/Acetaminophen (*Crx) 10-325 Mg Tablet PO 1 tab Q4H PRN Administration Pain Rated 7-10 Aspirin 81 mg 10/11/23 21:00 10/11/23 21:50 Aspirin 81 Mg Enteric Tablet PO
[2023-10-12] MEDS: HYDROcodone/acetaminophen (*CRX) 10-325 MG TABLET 1 TAB PO (09:58)
== END 2023-10-12 10:00 | disposition home or self-care (01) ==
LOC: ANHSURGERY 07:43 → ANHOB2 12:37
PROVIDERS: Physician Assistant; PCP Family Medicine; Visit Provider Surgery
PROC: (CPT 19307; principal; 2023-10-11 07:30)
DX: Z40.01 Encounter for prophylactic removal of breast (principal); L76.34 Postprocedural seroma of skin and subcutaneous tissue following other procedure; Z85.3 Personal history of malignant neoplasm of breast; L82.1 Other seborrheic keratosis; D18.01 Hemangioma of skin and subcutaneous tissue; Y83.8 Other surgical procedures as the cause of abnormal reaction of the patient, or of later complication, without mention of misadventure at the time of the procedure; E78.00 Pure hypercholesterolemia, unspecified; E11.9 Type 2 diabetes mellitus without complications; G47.33 Obstructive sleep apnea (adult) (pediatric); G62.0 Drug-induced polyneuropathy; Z92.21 Personal history of antineoplastic chemotherapy; K21.9 Gastro-esophageal reflux disease without esophagitis; F32.A Depression, unspecified; E66.9 Obesity, unspecified; Z68.31 Body mass index [BMI] 31.0-31.9, adult; Z79.82 Long term (current) use of aspirin; Z79.84 Long term (current) use of oral hypoglycemic drugs; Z79.85 Long-term (current) use of injectable non-insulin antidiabetic drugs
CPT/HCPCS: 19303; 14301; 14302 ×6; 36415; 80053; 82948; 83735; 85027; 88305; 88307; 99199; A9270; C1713; J0690; J1100; J1170; J2250; J2405; J2704; J3010; J7120

== ENCOUNTER 2023-11-08 13:11 | Outpatient (CLI) | payer MEDICARE, SELFPAY ==
[2023-11-08 13:26] LABS: Basophils Absolute Auto 0.1 K/mm3 (0.0-0.1); Basophils Percent Auto 0.9 % (0.2-1.2); Eosinophils Absolute Auto 0.2 K/mm3 (0-0.3); Eosinophils Percent Auto 2.3 % (0-4.4); Hematocrit 43.9 % (37.0-47.0); Hemoglobin 14.2 g/dL (12.0-15.0); Immature Granulocyte Absolute 0.01 K/mm3 (0.00-0.031); Immature Granulocyte Percent A 0.1 % (0-0.5); Lymphocytes Absolute Auto 1.81 K/mm3 (0.9-3.2); Lymphocytes Percent Auto 22.6 % (18.3-44.2); Mean Corpuscular HGB Conc 32.3 g/dl (32-36); Mean Corpuscular Hemoglobin 29.6 pg (26-34); Mean Corpuscular Volume 91.6 fl (80-100); Mean Platelet Volume 9.4 fl (7.4-10.4); Monocytes Absolute Auto 0.7 K/mm3 (0.1-0.6); Monocytes Percent Auto 8.4 % (2.6-8.5); Neutrophils Absolute Auto 5.3 K/mm3 (1.3-6.7); Neutrophils Percent Auto 65.7 % (45.5-73.1); Platelet Count Result 261 k/mm3 (150-375); Red Blood Count 4.79 M/mm3 (4.2-5.4); Red Cell Distribution Width 12.9 % (11.5-14.5)
[2023-11-08 16:43] LABS: Alanine Aminotransferase 26 U/L (6-35); Albumin Level 4.5 g/dL (3.5-5.1); Alkaline Phosphatase 78 U/L (38-126); Anion Gap 11 mmol/L (4-12); Aspartate Amino Transferase 38 U/L (14-36); Blood Urea Nitrogen 19 mg/dL (7-17); Calcium 9.2 mg/dL (8.4-10.2); Carbon Dioxide 25 mmol/L (22-30); Chloride 100 mmol/L (98-107); Estimated Glomerular Filt Rate > 60; Glucose 208 mg/dL (65-110); Potassium 3.9 mmol/L (3.4-5.0); Sodium 136 mmol/L (137-145)
[2023-11-10 07:29] LABS: CA 15-3 6 U/mL (<32)
== END 2023-11-08 13:12 | disposition home or self-care (01) ==
LOC: ANHLAB 13:14
PROVIDERS: PCP Family Medicine; Visit Provider Internal Medicine Hematology & Oncology
DX: C50.912 Malignant neoplasm of unspecified site of left female breast (principal); Z17.1 Estrogen receptor negative status [ER-]
CPT/HCPCS: 36415; 80053; 85025; 86300

== ENCOUNTER 2023-12-26 13:27 | Outpatient (CLI) | payer MEDICARE, SELFPAY ==
--- NOTE | ~2023-12-26 | XR_ITS ---
EXAMINATION: XR abdomen/kub 1V DATE: 12/26/2023 13:47 INDICATION: Calculus of kidney. TECHNIQUE: A supine view of the abdomen on 2 radiographs was obtained. COMPARISON: Abdomen radiographs 07/04/2023, CT abdomen and pelvis 06/02/2023 FINDINGS: There are no dilated loops of bowel. There is a phlebolith in right ovarian vein. There are phleboliths and vascular calcifications in the pelvis. There are 6 stones in left kidney measuring u p to 8 mm. Surgical clips in the right upper quadrant are likely from cholecystectomy. IMPRESSION: 1. Left kidney stones. Reviewed, dictated and finalized at location B. IMPRESSION: 1. Left kidney stones.
== END 2023-12-26 13:28 | disposition home or self-care (01) ==
LOC: ANHIMG 13:30
PROVIDERS: PCP Family Medicine; Visit Provider Urology
DX: N20.0 Calculus of kidney (principal)
CPT/HCPCS: 74018

== ENCOUNTER 2024-01-10 11:22 | Outpatient (CLI) | payer MEDICARE, SELFPAY ==
[2024-01-10 12:16] LABS: Anion Gap 6 mmol/L (4-12); Blood Urea Nitrogen 14 mg/dL (7-17); Calcium 9.8 mg/dL (8.4-10.2); Carbon Dioxide 30 mmol/L (22-30); Chloride 103 mmol/L (98-107); Estimated Glomerular Filt Rate > 60; Glucose 111 mg/dL (65-110); Potassium 4.2 mmol/L (3.4-5.0); Sodium 139 mmol/L (137-145)
[2024-01-10 12:19] LABS: Prothrombin Time 13.6 Seconds (11.1-14.7)
== END 2024-01-10 11:23 | disposition home or self-care (01) ==
LOC: ANHSURGERY 11:31
PROVIDERS: Anesthesiology; PCP Family Medicine; Visit Provider Urology
DX: Z01.818 Encounter for other preprocedural examination (principal); N20.0 Calculus of kidney; E11.9 Type 2 diabetes mellitus without complications
CPT/HCPCS: 36415; 80048; 85610; 85730; 87086

== ENCOUNTER 2024-01-13 06:05 | Day surgery (SDC) | payer MEDICARE, SELFPAY ==
--- NOTE | 2024-01-05 09:06 | PC.NURSE ---
Report to the Outpatient Waiting Room, entrance under the green pavilion located off [facility], at time _7 AM on date _01/13/24 . Planned Procedure Time: _9 AM .? Time changes happen often and if your time is changed the preop area will call you the afternoon before. - You and your visitor will be asked to self-screen and do not enter if you have any COVID symptoms. Please call surgeon if you need to reschedule. - A mask is optional within the hospital at this time. Patients may have clear liquids (water, carbonated beverages, clear teas, apple juice) until 3 hours prior to surgery( 6 AM) with a maximum of 20 ounces. - No food from midnight until time of surgery and no smoking - Infants may have breast milk until 4 hours before surgery, formula 6 hours prior to surgery. - Children will be allowed to drink immediately following surgery.? If applicable, please bring a bottle or sippy cup to assist with drinking. Juice, water, soda, and popsicles are readily available.? For infants on formula, please bring formula the day of surgery.? Pacifiers are allowed. Take only the following medications with a SIP of water on the morning of surgery: DULOXETINE DO NOT STOP ANY OF YOUR OTHER PRESCRIPTION MEDICATIONS PRIOR TO SURGERY EXCEPT THE FOLLOWING Medications to discontinue per physician ___PATIENT STATES LAST ASPIRIN 01/01/24 Please no make-up, nail swazi, hairspray, perfume, deodorant, or body powder the day of surgery.? No jewelry (including any body piercings) or valuables the day of surgery, leave them at home.? Please take a shower or bath the night before, or the morning of, surgery with an antibacterial soap.? Wear comfortable, loose fitting clothing.? Children are encouraged to wear pajamas. - Jewelry must be removed prior to entering the operating room.? Rings and piercings that are not removed may be cut off. - The hospital will not accept responsibility for valuables.? - Please leave all valuables, including medications, at home the day of surgery. If you are going home after surgery, a licensed dedicated intermodal truck driver must drive you home.? - NO public transportation without another adult if you receive anesthesia. - We recommend that an adult stay with you for 24 hours following discharge. - We also recommend that you do not drive, make important decision, drink alcoholic beverages, or take any drugs that were not prescribed by your health care provider for at least 24 hours after your discharge time. For Pediatric surgeries, we recommend two adults accompany the child home. Follow any additional instructions given to you from your surgeon. Telephone instructions given to __PATIENT and asked if any additional questions and then verbalized understanding. Patient advised to call surgeon office or pre surgery nurse liaison [phone] if any additional questions.
[2024-01-05 09:14] VITALS: BMI 30.1
--- NOTE | ~2024-01-13 | XR_ITS ---
EXAMINATION: XR abdomen/kub 1V DATE: 01/13/2024 07:09 INDICATION: Kidney stone. TECHNIQUE: A supine view of the abdomen on 2 radiographs was obtained. COMPARISON: Abdomen radiographs 12/18/2023, CT abdomen and pelvis 06/02/2023 FINDINGS: There are no dilated loops of bowel. There is a moderate volume of stool in the colon. Ther e is a 9 mm stone in left kidney. There is a 2 mm stone in left kidney. There are vascular calcificat ions in the pelvis. There are calcifications in left ovary. IMPRESSION: 1. Left kidney stones. Reviewed, dictated and finalized at location A. SHER FEEDER IMPRESSION: 1. Left kidney stones.
--- NOTE | 2024-01-13 06:08 | WPDHPUPDATE1 ---
History and Physical Update Update Date/Time: 01/13/24 06:08 History and Physical has been reviewed, including an updated exam of the patient. There are NO changes in the patient's condition. Risks, benefits, and alternatives have been discussed and questions answered. Patient agrees to proceed with procedure.
[2024-01-13] MEDS: LACTATED RINGERS 1,000 ML 30 ML IV CONT (07:30)
--- NOTE | 2024-01-13 07:34 | WPDANESEPPF ---
Anes - Initial Pre Proc Eval Procedure: Operation Date: 01/13/24 09:00 Proposed Procedures p Left Extracorporeal Shock Wave Lithotripsy - Tra Connell MD Date/Time: 01/13/24 07:34 Surgeon: Tra Connell MD Pre Op Diagnosis: Lt Renal Stone Patient Data Age: 68 Gender: F Height: 1.6 m Weight: 77.2 kg Allergies Allergy/AdvReac Type Severity Reaction Status Date / Time Penicillins Allergy Unknown Rash Verified 01/13/24 07:25 Home Medications Medication Instructions Recorded Confirmed Type aspirin 81 mg tablet,delayed 81 mg PO HS 12/30/22 01/13/24 History release omeprazole 20 mg capsule,delayed 20 mg PO DAILY 12/30/22 01/13/24 History release blood-glucose meter #1 ea 03/31/23 12/05/23 Rx rosuvastatin 20 mg tablet 20 mg PO DAILY #90 tabs 03/31/23 01/13/24 Rx blood sugar diagnostic (AlienVaultTouch #100 ea 04/04/23 12/05/23 Rx Verio test strips) lancets 33 gauge (OneTouch Delica #100 ea 04/04/23 12/05/23 Rx Plus Lancet) trazodone 50 mg tablet 50 mg PO QHS 06/08/23 01/13/24 History losartan 50 mg tablet 50 mg PO DAILY 07/07/23 01/13/24 History dapagliflozin propanediol 10 mg 10 mg PO QAM #90 tabs 09/12/23 01/05/24 Rx tablet gabapentin 300 mg capsule See Rx Instructions PO BID #90 caps 10/10/23 01/13/24 Rx duloxetine 30 mg capsule,delayed See Rx Instructions .Route 10/17/23 01/13/24 Rx release .COMPLEX #90 caps duloxetine 60 mg capsule,delayed See Rx Instructions .Route 11/14/23 01/13/24 Rx release .COMPLEX #90 caps semaglutide 2 mg/dose (8 mg/3 mL) 2 mg (0.75 mL) subcut WEEKLY #3 mL 12/05/23 01/13/24 Rx subcutaneous pen injector Patient hx anesthesia problems: none Family hx anesthesia problems: none Results Review: All pre-operative results and documents have been reviewed as part of the pre-operative evaluation. 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 Type 2 diabetes mellitus Surgical History Surgical History History of appendectomy History of cholecystectomy History of hysterectomy History of lithotripsy x5. History of lumpectomy of left breast History of tonsillectomy History of tubal ligation Family History Family History Father Heart disease Diabetes mellitus Acute myocardial infarction Mother Breast cancer Sibling Breast cancer Stomach cancer Social History Social History Social History: Surrogate medical decision maker: Darrick Swensno, spouse. Code status: Full code. Smoking status: Never smoker Second hand tobacco smoke exposure: No Alcohol intake: never Substance use: never Substance use type: does not use Do You Feel Safe in your Home?: Yes Lack of Transportation: No Lack of Food: Never True Current Housing: I Have Housing Concerned About Future Housing: No Difficulty Paying Gas/Electric Bills: No Difficulty Paying for Meds: Decline to Answer Currently Unemployed: No Education: Trade/Vocational Certificate Difficulty w/ Childcare or Family Care: No Living arrangements: with family Additional living arrangements comments: Lives with in [place] Occupation/Education: retired Additional occupation/education comments: Accounting. Spiritual care concerns: No Anes - Eval Final PreProcedure Day of Procedure 01/13/24 07:34 Patient weight: obese Heart: regular rate and rhythm Lungs: clear to auscultation Airway: Mallampati scale class II Neurological: alert and oriented Last oral intake: >/= 8 hours ASA classification: III Emergent: no Anesthetic plan: proceed Anesthesia type and monitoring: general LMA and standard monitoring Results Review: All pre-operative results and documents have been reviewed as part of the pre-operative evaluation. Informed Consent: The patient's anesthetic plan and its attendant risks and benefits were discussed with the patient/family/POA. Questions were solicited and answers provided to the satisfaction of the patient/family/POA.
[2024-01-13 07:40] LABS: Glucose Point of Care 124 mg/dl (65-105)
[2024-01-13 07:42] VITALS: BP 114/56; PULSE 87; RESP 16; TEMP 36.1; O2SAT 99
[2024-01-13 09:11] VITALS: BP 113/64; PULSE 76; RESP 12; TEMP 36.1; O2SAT 100
[2024-01-13 09:18] LABS: Glucose Point of Care 129 mg/dl (65-105)
--- NOTE | 2024-01-13 09:21 | W.PM.PROC2 ---
Procedure Note - Detailed Date of Procedure 01/13/24 Pre-op Diagnosis Lt Renal Stones Post-op Diagnosis Same Procedure Performed Left ESWL Surgeon Tra Connell MD Anesthesia General Description of Procedure The patient was brought to the operative suite where she was placed in the supine position on the Dornier lithotripsy table. The focal point of the lithotripter was placed at 2 contiguous stones in the left lower pole. A total of 2500 shocks were delivered at a power setting of 4. There appeared to be good fragmentation of the stone. The patient tolerated the procedure well and was taken to the recovery room in good condition.
[2024-01-13 09:25] VITALS: BP 113/65; PULSE 80; RESP 13; O2SAT 100
[2024-01-13 09:40] VITALS: BP 117/64; PULSE 84; RESP 15; O2SAT 98
[2024-01-13 09:50] VITALS: BP 109/51; PULSE 81; RESP 18
[2024-01-13] MEDS: oxyCODONE HCL (*CRX) 5 MG TAB IR PO (10:07)
[2024-01-13 10:20] VITALS: BP 120/55; PULSE 88; RESP 16
== END 2024-01-13 10:35 | disposition home or self-care (01) ==
PROVIDERS: PCP Family Medicine; Visit Provider Urology
PROC: (CPT 50590; principal; 2024-01-13 09:00)
DX: N20.0 Calculus of kidney (principal); I10 Essential (primary) hypertension; E11.9 Type 2 diabetes mellitus without complications; D64.9 Anemia, unspecified; F32.A Depression, unspecified; K21.9 Gastro-esophageal reflux disease without esophagitis; G47.33 Obstructive sleep apnea (adult) (pediatric); E78.00 Pure hypercholesterolemia, unspecified; E66.9 Obesity, unspecified; Z68.29 Body mass index [BMI] 29.0-29.9, adult; Z79.1 Long term (current) use of non-steroidal anti-inflammatories (NSAID); Z79.85 Long-term (current) use of injectable non-insulin antidiabetic drugs; Z79.82 Long term (current) use of aspirin; Z98.890 Other specified postprocedural states; Z90.49 Acquired absence of other specified parts of digestive tract; Z98.51 Tubal ligation status; Z85.3 Personal history of malignant neoplasm of breast; Z92.21 Personal history of antineoplastic chemotherapy; Z87.19 Personal history of other diseases of the digestive system; Z80.3 Family history of malignant neoplasm of breast; Z80.0 Family history of malignant neoplasm of digestive organs; Z82.49 Family history of ischemic heart disease and other diseases of the circulatory system
CPT/HCPCS: 50590; 74018; 82948; A9270; J1100; J2405; J2704; J7120

== ENCOUNTER 2024-01-30 11:58 | Outpatient (CLI) | payer MEDICARE, SELFPAY ==
--- NOTE | ~2024-01-30 | XR_ITS ---
Supine and upright views of the abdomen Clinical history: Renal stone COMPARISON: 01/13/2024 Findings: Bowel gas pattern is nonspecific. No evidence for obstruction or free air. Stable left russell l stones. Stable rounded calcification just below the right L5 transverse process. Stable pelvic calc ifications, likely phleboliths and/or calcified fibroids.. Osseous structures are intact. Impression: Stable left nephrolithiasis. Numerous stable additional calcifications, as above. Reviewed, dictated and finalized at location . SEALING INSPECTOR Impression: Stable left nephrolithiasis. Numerous stable additional calcifications, as abov e.
== END 2024-01-30 11:59 | disposition home or self-care (01) ==
PROVIDERS: PCP Family Medicine; Visit Provider Urology
DX: R93.7 Abnormal findings on diagnostic imaging of other parts of musculoskeletal system (principal); N20.0 Calculus of kidney
CPT/HCPCS: 74018

== ENCOUNTER 2024-04-04 22:08 | Emergency (ER) | payer MEDICARE, SELFPAY ==
--- OUTSIDE RECORDS SUMMARY | 2024-04-04 22:10 | XMS_ITS | Clinical Summary ---
Author Organization [facility] [address] Address [address] [place] [address] Care Team Providers Care Curtain Inspector Name Role Phone Rinku Lester MD Primary Care Provider + [phone] James Rodriguez MD PhD Unavailable + [phone] Ron Jacques MD Unavailable [phone] Raul Russo MD Unavailable [phone] Allergies Active Allergy Reactions Criticality Noted Date Comments Penicillins Hives Medium 11/28/2019 40 years ago Medications rosuvastatin (CRESTOR) 20 mg tablet Take 1 tablet (20 mg total) by mouth daily [address] (CYMBALTA) 60 mg capsule Take 1 capsule (60 mg total) by mouth daily 0 Active aspirin 81 mg enteric coated tablet Take 1 tablet (81 mg total) by mouth daily Active traZODone (DESYREL) 50 mg tablet Take 1 tablet (50 mg total) by mouth nightly Active gabapentin (NEURONTIN) 300 mg capsule TAKE 1 CAPSULE BY MOUTH IN THE MORNING AND 2 CAPSULES AT BEDTIME 2 Active omeprazole (PriLOSEC) 20 mg capsule Take 1 capsule (20 mg total) by mouth daily Active DULoxetine DR (CYMBALTA) 30 mg capsule Take 1 capsule (30 mg total) by mouth nightly Active HYDROcodone-ac etaminophen (NORCO) 5-325 mg per tabletIndicati ons:Pain Take 1 tablet by mouth every 6 (six) hours as needed (pain) 20 tablet 3 Active Additional Information Patient not taking.Reported on 09/08/2022 Ozempic 0.25 mg or 0.5 mg (2 mg/3 mL) pen injector injection INJECT 0.5 MG (0.736 ML) SUBCUTANEOUSLY WEEKLY FOR 4 WEEKS 4 Active multivitamin tabletIndicati ons:Vitamin Deficiency Prevention Take 1 tablet by mouth Active losartan (COZAAR) 50 mg tablet TAKE 1 TABLET BY MOUTH EVERY DAY AT NIGHT 90 tablet 2 4 Active Active Problems Problem Noted Date Diagnosed Date Seroma of breast 05/12/2022 Overview (05/12/2022): Added automatically from request for surgery [id number] Prevention of chemotherapy-induced neutropenia 0 04/30/2020 Malignant neoplasm of left female breast 020 Overview (02/20/2020): Added automatically from request for surgery [id number] Malignant neoplasm of upper- outer quadrant of left breast in female, estrogen receptor negative 01/23/2020 Cancer Staging:Pathologic stage from 04/07/2020:Stage IIA(pT2, pN0(sn), cM0, G2, ER-, NC-, HER2-) - Signed by James Rodriguez MD PhD on 04/07/2020 Assessment & Plan (04/01/2022 3:05 PM PRINCIPAL STATISTICAL PROGRAMMER): Recurrent area of tenderness with induration, minimal erythema throughout, we will ask for radiology for ultrasound guided aspiration of this as well as cytology and culture. She will finish the keflex today and start bactrim tomorrow. Patient Is understanding of the treatment plan. Resolved Problems Problem Noted Date Diagnosed Date Resolved Date Fitting and adjustment of vascular catheter 04/17/2020 05/04/2022 Immunizations Name Administration Dates Next Due Influenza, Quadrivalent, Hig h Dose, Preservative Free, Intrr 01/07/2021,12/26/2019,12/26/2019 Influenza, Quadrivalent, Spl it, Preservative Free, Intramuscular 01/26/2019 Influenza, Split 11/29/2012 Influenza, Unspecified 01/20/2021,01/20/2021 Pfizer SARS-CoV-2 Monovalent Vaccination (12+ Yrs) PURPLE 02/24/2021,02/24/2021,2020,09/22,08/12/2020,07/21/2020 Pneumococcal Conjugate PCV 13 12/26/2019, 020 Surgical History Surgery Date Site/Laterality Comments TONSILLECTOMY CHOLECYSTECTOMY KNEE SURGERY Left arthroscopy COLONOSCOPY LIPOMA RESECTION back BREAST LUMPECTOMY Left HYSTERECTOMY around the age of 39, patient still has ovaries Medical History Medical History Date Comments Hypertension Hyperlipidemia Acid indigestion Anxiety Depression Sleep apnea Kidney stones Cancer (CMS/HCC) (HCC) breast ca Breast cancer (HCC) left History of radiation therapy lef t History of chemotherapy left GERD (gastroesophageal reflux disease) Family History Medical History Relation Name Comments Cancer Brother Heart attack Brother Heart disease Father Breast cancer Mother Brain cancer Nephew Breast cancer Sister Relation Name Status Comments Brother (Age 72) Father (Age 80) Mother (Age 89) Nephew Sister Social History Tobacco Use Types Packs/Day Years Used Date Smoking Tobacco: Never Smokeless Tobacco: Never Tobacco Cessation:Counseling Given: Not Answered Alcohol Use Standard Drinks/Week Comments Not Currently 0 (1 standard drink = 0.6 oz pur e alcohol) AUDIT-C Answer Date Recorded Q1: How often do you have a drink containing alcohol? Never 05/21/2022 Q2: How many drinks containi ng alcohol do you have on a typical day when you are drinking? Patient does not drink Q3: How often do you have si x or more drinks on one occasion? Never 05/21/2022 Personal Safety Answer Date Recorded Have you ever been in or are you currently in a harmful physical or emotional relationship or is someone making you feel afraid or unsafe? Denies 05/21/2022 Comments No Sex and Gender Information Value Date Recorded Sex Assigned at Not on file Legal Sex Female 11:48 AM PRINCIPAL STATISTICAL PROGRAMMER Gender Identity Not on file Sexual Orientation Not on file Obstetrics History Para Term AB IAB SAB Ectopic Multiple Livin g Live Births 3 3 3 Date Outcome GA Total Labor Labor//3rd Weight Sex Type Anes PTL Suzan A1 A5 Name Clin Term Term Term Last Filed Vital Signs Vital Sign Reading Time Taken Comments Blood Pressure 110/70 09/14/2023 9:00 AM CDT Pulse 111 09/14/2023 9:00 AM CDT Temperature 36 C (96.8 F) 06/16/2022 1:16 PM CDT Respiratory Rate 20 05/21/2022 11:00 AM CDT Oxygen Saturation 96% 09/14/2023 9:00 AM CDT Inhaled Oxygen Concentration - - Weight 83 kg (183 lb) 09/14/2023 9:00 AM CDT Height 160 cm (5' 3 ) 09/14/2023 9:00 AM CDT Body Mass Index 32.42 09/14/2023 9:00 AM CDT Plan of Treatment Health Maintenance Due Date Last Done Comments Albumin Creatinine Ratio, Urine 1954 Colon Cancer Screening-Colonoscopy 1954 Depression Screening 1954 Hepatitis C Screening 1954 Osteoporosis Screening-Bone Density Scan 1954 Dilated Eye Exam 1954 Foot Exam 1954 DTaP/Tdap/Td Vaccine (1 - Tdap) 1965 Hepatitis B Screening 1972 Zoster Vaccine (1 of 2) 2004 Well Visit 65+ 09/23/2019 Hemoglobin A1C 10/21/2020 04/23/2020 Breast Cancer Screening-Mammogram 06/10/2022 022 Fall Risk Assessment 06/24/2022 06/24/2021, 07/03/19 21 eGFR 05/08/2023 05/07/2022, 11/0 10/2021, 10/02/2021, Additional history exists Covid-19 Vaccine (2023-2 5 season) 2023 09/11/2021, 02/24/2021, 02/24/2021, Additional history exists Influenza Vaccine (#1) 2023 , 01/20/2021, 01/07/2021, Additional history exists Lipid Panel 09/13/2024 09/14/2023, 08/28, 03/04/2021, Additional history exists Pneumococcal vaccine 65+ Completed 022, 12/26/2019, 12/26/2019 Medical Devices Implanted Type Area Courier Driver Device Identifier Shelf Expiration Date Model / Serial / Lot [employer] [id number] Powerport Mri Airguard 8fr 1 Lumen Attachable Catheter Latex Free - [id number] Implanted:Qty: 1 on 04/14/2020 by Ron Jacques MD at [facility] [employer] 02/27/2021 [id number] / / [id number] Procedures Procedure Name Priority Date/Time Associated Diagnosis Comments POCT LIPID PANEL Routine 09/14/2023 9:02 AM CDT Lipid screening EGFR Routine 05/07/2022 1:45 PM PRINCIPAL STATISTICAL PROGRAMMER Malignant neoplasm of upper-outer quadrant of left breast in female, estrogen receptor negative (CMS/HCC) (HCC) DIAGNOSTIC MAMMOGRAM BILATERAL W YADI Schedule Routine, Read Routine (OP Routine) 06/10/2021 9:02 AM CDT Malignant neoplasm of upper-outer quadrant of left breast in female, estrogen receptor negative (CMS/HCC) (HCC) HEMOGLOBIN A1C Routine 04/23/2020 10:50 AM PRINCIPAL STATISTICAL PROGRAMMER from Last 3 Months or Most Recently Relevant to Health Maintenance Results * POCT lipid panel (09/14/2023 9:02 AM CDT) Cholesterol, POC 126 mg/dL HDL, POC 48 mg/dL Triglycerides, POC 148 mg/dL LDL Cholesterol POC 48 mg/dL Chol/HDL Ratio, POC 1.0 Non-HDL Cholesterol, POC 78 mg/dL Cholesterol Total, POC 126 mg/dL Capillary blood 09/14/2023 9 :02 AM CDT us Fransico Rojo MD POINT OF CARE TEST ORDERABLES Ed ited Result - Final * eGFR (05/07/2022 1:45 PM PRINCIPAL STATISTICAL PROGRAMMER) eGFR 98 mL/min/1. 73 m2 [facility] ([facility]) Comment: Interpretive Data Reference Interval Normal >/= 90 mL/min/1.73m2 Mildly decreased* 60 - 89 mL/min/1.73m2 Mildly to moderately decreased 45 - 59 mL/min/1.73m2 Moderately to severely decreased 30 - 44 mL/min/1.73m2 Severely decreased 15 - 29 mL/min/1.73m2 Kidney Failure < 15 mL/min/1.73m2 *Relative to young adult level Estimated glomerular filtration rate is determined by the 2020 CKD-EPI equation recommended by the National Kidney Foundation (A Unifying Approach to GFR Estimation: Recommendations of the NKF-ASK Task Force on Reassessing the Inclusion of Race in Diagnosing Kidney Disease, JASN 2020). The CKD-EPI equation should not be used for patients with unstable renal function and has not been validated in children and those over 70. Current interpretive data was last reviewed 2020. Blood 05/07/2022 1:45 PM PRINCIPAL STATISTICAL PROGRAMMER 05/07/2022 2:43 PM PRINCIPAL STATISTICAL PROGRAMMER us Dahlia Rodriguez 911 TELECOMMUNICATOR LAB BLOOD ORDERABLES Final Result Performing Organization Address City/State/[facility] Co de Phone Number [facility] ([facility]) 1 [facility] Department [place] [address] * Diagnostic Mammogram Bilateral W Yadi (06/10/2021 9:02 AM CDT) Anatomical Region Laterality Modality Breast Bilateral Mammography 06/10/2021 10:1 4 AM CDT Impressions 06/10/2021 10:14 AM CDT 1. Unchanged probably benign findings in the central outer right breast at the 3 o'clock position 10-12 cm from the nipple, most suggestive of a postoperative hematoma that measures approximately 6.9 cm in greatest diameter. Continued physical examination is recommended, and sonographic follow-up in 6 months to document continued stability. 2. No new suspicious findings identified in either breast on mammogram. Annual screening mammography recommended in 12 months. BI-RADS: 3 - Probably benign. The patient was notified of the results and recommendations on the time of the examination. Electronically signed by: TOMEKA Jin 06/10/2021 10:14 AM CDT EXAMINATION: US BREAST LEFT LIMITED, DIAGNOSTIC MAMMOGRAM BILATERAL W YADI ORDERING HEALTHCARE PROVIDER: DAHLIA RODRIGUEZ HISTORY: 65-year-old woman with personal history of left breast cancer status post breast conserving therapy in February 2020. She comes in today for routine screening of the right breast, an follow-up of a probably benign finding in the left breast. COMPARISON: Left breast sonogram dated 12/23/2020, 09/24/2020. Mammogram dated 11/20/2019. TECHNIQUE: CC and MLO views of both breasts were obtained with digital technique using digital breast tomosynthesis with C view. Computer aided detection was utilized. Targeted sonographic examination of left breast was performed real-time grayscale images and color Doppler. FINDINGS: MAMMOGRAPHIC FINDINGS: There are expected postoperative changes status post treatment changes in the left breast, including increased breast density, trabecular thickening, and diffuse skin thickening. A few benign mitral calcifications are unchanged in the left breast. An indistinct mass in the central outer left breast from middle to posterior depth corresponds to the benign finding of concern. No new suspicious findings seen in the left breast on mammogram. There are also no new suspicious findings in the right breast on mammogram. SONOGRAPHIC FINDINGS: Targeted sonographic examination of the left breast is performed at the 3 o'clock position 10-12 cm from the nipple, demonstrating an oval mass that is wider than taller and measures 5 x 3.3 x 6.9 cm. The mass is wider than taller, mostly circumscribed, and demonstrates a heterogeneous mixed hypoechoic and anechoic internal echo pattern. Posterior acoustic enhancement is again noted, and no internal blood flow is seen upon examination with color Doppler. The appearance is most consistent with a postoperative hematoma, and there has been no significant interval change. us Dahlia Rodriguez 911 TELECOMMUNICATOR IMG MAMMO PROCEDURES Final Result * (ABNORMAL) Hemoglobin A1c (04/23/2020 10:50 AM PRINCIPAL STATISTICAL PROGRAMMER) Hgb A1C 7.3(H) 4.0 - 5.6 % [facility] ([facility]) Estimated Average Glucose 163 mg/dL [facility] ([facility]) Comment: The ADA recommends reporting an estimated Average Glucose (eAG) with all Hemoglobin A1c results using the equation derived from a study of 507 normal and diabetic adults. Minority populations were underrepresented and children were not included. (Diabetes Care 31:2852-6634, 2008). The eAG is not equivalent to a fasting glucose. Blood specimen (specimen) 04/23/2020 10:50 AM PRINCIPAL STATISTICAL PROGRAMMER 04/23/2020 10:53 AM PRINCIPAL STATISTICAL PROGRAMMER us Aleksandar LUKE LAB BLOOD ORDERABLES Final R esult [facility] ([facility]) [facility] Department [place] [address] from Last 3 Months or Most Recently Relevant to Health Maintenance Insurance MEDICARE AETNA [facility] MEDICARE [facility] MEDICARE AETNA SENIOR SUPPLEMENT Care Teams Curtain Inspector Relationship Specialty Start Date End Date Rinku Lester MD PCP - General Family Medicine 11/07/19 James Rodriguez MD PhD [address] [place] [id number] Radiation Oncologist Radiation Oncology 04/07/20 Ron Jacques MD [address] [place] [id number] Referring Physician General Surgery 04/07/20 Raul Russo MD [address] [place] [id number] Consulting Physician Hematology and Oncology 02/25/21
--- OUTSIDE RECORDS SUMMARY | 2024-04-04 22:10 | XMS_ITS | Clinical Summary ---
Author Organization [facility] Karol Corcoran Address [address] [place] [address] Care Team Providers Care Mold Filler Plastic Dolls Name Role Phone Rinku Lester MD Primary Care Provider Allergies Active Allergy Reactions Criticality Noted Date Comments Penicillins Hives High 11/28/2019 40 years ago Medications aspirin (ECOTRIN EC) 81 mg Tablet, Delayed Release (E.C.) Take 81 mg by mouth daily. Active DULoxetine (CYMBALTA) 30 mg Capsule, Delayed Release(E.C.) Take 30 mg by mouth daily at bedtime. Active gabapentin (NEURONTIN) 300 mg capsule TAKE 1 CAPSULE BY MOUTH IN THE MORNING AND 2 CAPSULES AT BEDTIME 09/19/19 22 Active losartan (COZAAR) 50 mg tablet Take 50 mg by mouth daily at bedtime. 09/09/19 23 Active omeprazole (PriLOSEC) 20 mg Capsule, Delayed Release(E.C.) Take 20 mg by mouth daily. Active traZODone (DESYREL) 50 mg tablet Take 50 mg by mouth daily at bedtime. Active Ozempic 1 mg/dose (4 mg/3 mL) Pen Injector INJECT 1 MG (0.75 ML) SUBCUTANEOUSLY WEEKLY 11/07/19 24 Active Ozempic 0.25 mg or 0.5 mg (2 mg/3 mL) Pen Injector INJECT 0.5 MG (0.736 ML) SUBCUTANEOUSLY WEEKLY FOR 4 WEEKS 08/28/19 24 Active dapagliflozin propanediol (Farxiga) 10 mg Tablet Take 10 mg by mouth daily. Active Active Problems No known active problems Encounters Date Type Department Care Team Description 03/21/2024 External Device Data STL ABSTRACTION Provider, Abstract from Last 3 Months Family History Medical History Relation Name Comments Stomach Cancer Brother 1 Stomach Cancer Brother 2 Diabetes Daughter Heart Disease Daughter Heart Disease Father Breast Cancer Mother Breast Cancer Sister 1 Ovarian Cancer Sister 2 Relation Name Status Comments Brother 1 Alive Brother 2 Alive Brother 3 Daughter Father Mother Sister 1 Alive Sister 2 Alive Son 1 Alive Son 2 Alive Social History Tobacco Use Types Packs/Day Years Used Date Smoking Tobacco: Never Smokeless Tobacco: Never Tobacco Cessation:Counseling Given: Not Answered Alcohol Use Standard Drinks/Week Comments Never 0 (1 standard drink = 0.6 oz pur e alcohol) Comments Unknown Sex and Gender Information Value Date Recorded Sex Assigned at Not on file Legal Sex Female 4:11 PM MANAGER CABLE Gender Identity Not on file Sexual Orientation Not on file Last Filed Vital Signs Vital Sign Reading Time Taken Comments Blood Pressure 105/69 11/17/2023 3:30 PM CDT Pulse 106 11/17/2023 3:30 PM CDT Temperature 36.1 C (96.9 F) 11/17/2023 3:30 PM CDT Respiratory Rate 16 11/17/2023 3:30 PM CDT Oxygen Saturation 96% 11/17/2023 3:30 PM CDT Inhaled Oxygen Concentration - - Weight 78 kg (172 lb) 11/17/2023 3:30 PM CDT Height 157.5 cm (5' 2 ) 03/02/2023 10:12 AM MANAGER CABLE Body Mass Index 31.46 03/02/2023 10:12 AM MANAGER CABLE Plan of Treatment Upcoming Encounters Date Type Department Care Team (Late st Contact Info) Description 05/17/2024 1:15 PM CDT Office Visit [facility] Oncology and Hematology - [place] [address] [place] [address] Rich De Souza MD [address] [place] [address] Health Maintenance Due Date Last Done Comments Pre-Diabetes and Diabetes Screening 1954 DTAP/TDAP/TD VACCINES (1 - Tdap) 1973 COLORECTAL SCREENING 09/23/1999 Colorectal Cancer Screening 09/23/1999 FIT-DNA Q 3 years 09/23/1999 FIT/FOBT Q 1 year 09/23/1999 Flex Sig/CT Colonography Q 5 years 09/23/1999 ZOSTER VACCINE (1 of 2) 2004 RSV VACCINE (60+ or ) (1 - Risk 60-74 years 1-dose series) 2014 OSTEOPOROSIS SCREENING 09/23/2019 PNEUMOCOCCAL VACCINE 65+ YEA RS (2 of 2 - PPSV23) 02/20/2020 12/26/2019 BREAST CANCER SCREENING 06/10/2022 06/10/2021 INFLUENZA VACCINE (#1) 2023 , 12/26/2019, 01/26/2019 COVID-19 Vaccine ( - 2023-2 5 season) 2023 02/24/2021, 2020, 08/12/2020, Additional history exists Insurance [employer] MEDICARE SUPP AESSI MEDICARE PART A AND B Care Teams Mold Filler Plastic Dolls Relationship Specialty Start Date End Date Rinku Lester MD [address] [place] [address] PCP - General Family Practice 03/02/23
--- OUTSIDE RECORDS SUMMARY | 2024-04-04 22:10 | XMS_ITS | Referral Summary ---
Author Organization [facility] [address] Address [address] [place] [address] Care Team Providers Care Wrapper Counter Name Role Phone Rinku Lester MD Primary Care Provider + [phone] James Rodriguez MD PhD Unavailable + [phone] Ron Jacques MD Unavailable [phone] Raul Russo MD Unavailable [phone] Allergies Active Allergy Reactions Criticality Noted [...] (05/12/2022): Added automatically from request for surgery [id number] Prevention of chemotherapy-induced neutropenia 0 04/30/2020 Malignant neoplasm of left female breast 020 Overview (02/20/2020): Added automatically from request for surgery [id number] Malignant neoplasm of upper- outer quadrant of left breast in female, estrogen receptor negative 01/23/2020 Cancer Staging:Pathologic stage from 04/07/2020:Stage IIA(pT2, pN0(sn), cM0, G2, ER-, CT-, HER2-) - Signed by James Rodriguez MD PhD on 04/07/2020 Assessment & Plan (04/01/2022 3:05 PM FACSIMILE OPERATOR): Recurrent area of tenderness with induration, minimal [...] 02/24/2021,02/24/2021,2020,09/22,08/12/2020,07/21/2020 Pneumococcal Conjugate PCV 13 12/26/2019, 020 Social History Tobacco Use Types Packs/Day Years [...] on file Legal Sex Female 11:48 AM FACSIMILE OPERATOR Gender Identity Not on file Sexual Orientation [...] 09/14/2023 9:00 AM CDT Plan of Treatment Not on file Medical Devices Implanted Type Area Trestle Builder Device Identifier Shelf Expiration Date Model / Serial / Lot [employer] [id number] Powerport Mri Airguard 8fr 1 Lumen Attachable Catheter Latex Free - [id number] Implanted:Qty: 1 on 04/14/2020 by Ron Jacques MD at [facility] [employer] 02/27/2021 [id number] / / [id number] Procedures Procedure Name Priority Date/Time Associated Diagnosis Comments POCT LIPID PANEL Routine 09/14/2023 9:02 AM CDT Lipid screening EGFR Routine 05/07/2022 1:45 PM FACSIMILE OPERATOR Malignant neoplasm of upper-outer quadrant of left breast in female, estrogen receptor negative (CMS/HCC) (HCC) DIAGNOSTIC MAMMOGRAM BILATERAL W YADI Schedule Routine, Read Routine (OP Routine) 06/10/2021 9:02 AM CDT Malignant neoplasm of upper-outer quadrant of left breast in female, estrogen receptor negative (CMS/HCC) (HCC) HEMOGLOBIN A1C Routine 04/23/2020 10:50 AM FACSIMILE OPERATOR from Last 3 Months or Most Recently [...] - Final * eGFR (05/07/2022 1:45 PM FACSIMILE OPERATOR) eGFR 98 mL/min/1. 73 m2 [facility]AUNA [facility] ([place]) Comment: Interpretive Data Reference Interval Normal >/= [...] last reviewed 2020. Blood 05/07/2022 1:45 PM FACSIMILE OPERATOR 05/07/2022 2:43 PM FACSIMILE OPERATOR us Dahlia Rodriguez FLITCH HANGER LAB BLOOD ORDERABLES Final Result [facility] [place]) [facility] [place] [address] * Diagnostic Mammogram Bilateral W [...] no significant interval change. us Dahlia Rodriguez NP IMG MAMMO PROCEDURES Final Result * (ABNORMAL) Hemoglobin A1c (04/23/2020 10:50 AM FACSIMILE OPERATOR) Hgb A1C 7.3(H) 4.0 - 5.6 % [facility] ([place]) Estimated Average Glucose 163 mg/dL [facility] ([place]) Comment: The ADA recommends reporting an estimated Average Glucose (eAG) with all Hemoglobin A1c results using the equation derived from a study of 507 normal and diabetic adults. Minority populations were underrepresented and children were not included. (Diabetes Care 31:9182-6618, 2008). The eAG is not equivalent to a fasting glucose. Blood specimen (specimen) 04/23/2020 10:50 AM FACSIMILE OPERATOR 04/23/2020 10:53 AM FACSIMILE OPERATOR us Aleksandar LUKE LAB BLOOD ORDERABLES Final R esult [facility] ([place]) [facility] [place] [address] from Last 3 Months or Most Recently Relevant to Health Maintenance Insurance MEDICARE AET[employer] SENIOR SUPPLEMENT MEDICARE [place] [employer] MEDICARE AETNA SENIOR SUPPLEMENT Care Teams Wrapper Counter Relationship Specialty Start Date End Date Rinku Lester MD PCP - General Family Medicine 11/07/19 James Rodriguez MD PhD [address] [place] [address] Radiation Oncologist Radiation Oncology 04/07/20 Ron Jacques MD [address] [place] [address] Referring Physician General Surgery 04/07/20 Raul Russo MD [address] [place] [id number] Consulting Physician Hematology and Oncology 02/25/21
--- OUTSIDE RECORDS SUMMARY | 2024-04-04 22:10 | XMS_ITS | CONTINUITY OF CARE DOCUMENT ---
Author Name cydney lamas Address Unknown Organization [facility] Address [address] [place] [address] Phone [phone] Care Team Providers Care Cattle Dipper Name Role Phone [place] HAIRSTON, [place] Unavailable [phone] CESIA HAIRSTON, VAHE F Unavailable CESIA HAIRSTON, VAHE F Unavailable [phone] PROBLEMS Condition Status Date Provider Notes GERD active Tiffany Stahlschmidt HYPERCHOLESTEROLEMIA active Tiffany Stahlsch midt SLEEP APNEA active Tiffany Stahlschmidt HTN ESSENTIAL active Tiffany Stahlschmidt CHEST PAIN, [place] CATH IN 2003 active ? [place] pereira MD SLEEP APNEA USES CPAP active [place] Robison ENCOUNTERS Date Type Provider Location Encounter Diagnosis - In-person encounter Office Visit [place] Vickers MD [place] [facility] - In-person encounter Office Visit [place] Vickers MD [place] [facility] CHEST PAIN, [place] CATH IN 2004SLEEP APNEA USES CPAP - In-person encounter Office Visit [place] Vickers MD [place] [facility] VITAL SIGNS Date Observation Value Provider blood pressure, diastolic 90 mm[Hg] Hester blood pressure, systolic 148 mm[Hg] Miller Junior pulse rate 80 /min Evaristo Junior oxygen saturation, oximetry 97 % Evaristo Junior respiratory rate E&M 16 /min Evaristo Vallecilloran weight E&M 208 [lb_av] Evaristo Junior blood pressure, diastolic 70 mm[Hg] Frank Yun blood pressure, systolic 121 mm[Hg] Anuel Yun pulse rate 74 /min Cher Yun oxygen saturation, oximetry 97 % Cher Yun respiratory rate E&M 196 /min Sulaiman Yun weight E&M 194 [lb_av] Cher Yun blood pressure, diastolic 80 mm[Hg] Laura Wang PACO blood pressure, systolic 134 mm[Hg] Lou Wang PACO pulse rate 74 /min Skye Wang PACO oxygen saturation, oximetry 98 % Skye Wang PACO respiratory rate E&M 16 /min Skye Wang PACO weight E&M 201 [lb_av] Skye Wang [place] RESULTS Date Observation Value Provider Reference Range Interpretation Location 6 free thyroxine index 2.8 [facility] 1.4-3.8 Normal 6 thyroxine, serum, total 13.5 ug/dL [facility] 4.5-12.5 High 6 triiodothyronine resin uptake 21 % [facility] 22-35 Low 6 thyroid stimulating hormone, serum 2.59 u[IU]/mL [facility] Normal HISTORY OF MEDICATION USE Medication Status Instructions Dates Provider Indications Com ments HYDROCHLOROTHIAZIDE 12.5 MG ORAL CAPSULE active ONE TAB. DAILY [place] Vickers MD OMEPRAZOLE 40 MG ORAL CAPSULE DELAYED RELEASE active 1 TAB DAILY Evaristo Junior EQL FISH OIL CAPSULE active 1 TAB DAILY Miller Junior TEMAZEPAM 15 MG ORAL CAPSULE active take one a night Cher Yun LEXAPRO 10 MG ORAL TABLET active one per day Cher Yun TRILIPIX 135 MG ORAL CAPSULE DELAYED RELEASE active take one a day Cher Yun RANITIDINE HCL 300 MG ORAL CAPSULE active take one a day Cher Yun COREG 25 MG ORAL TABLET active ONE TAB. TWICE DAILY [place] Vickers MD CENESTIN 0.09MG TABS (ESTROGENS CONJ SYNTHETIC A) active one daily Evaristo Junior LIPITOR 10 MG ORAL TABLET active ONE TAB. DAILY Mayra Bentley RN LUNESTA 3 MG ORAL TABLET active as needed Skye Wang MA ASPIRIN 81 MG ORAL TABLET active ONE TAB. DAILY Mayra Bentley RN SOCIAL HISTORY Date Observation Value Provider social history reviewed E&M reviewed [place] Vickers MD social history reviewed E&M reviewed [place] Vickers MD social history E&M Marital Statu s: L asif with family/friends E thnicity: [place] Vickers MD drug use none [place] Vickers MD social history reviewed E&M reviewed [place] Vickers MD physical exercise, f requency, days per week yes [facility] caffeine use, averag e drinks per day yes [facility] alcohol use, average drinks per day none [facility] smoking status Non-smoker [facility] MENTAL STATUS Date Observation Value Provider assessment of judgme nt and insight E&M Alert and oriented to time, place and person. Mood and affect are normal. [place] Vickers MD assessment of judgme nt and insight E&M Alert and oriented to time, place and person. Mood and affect are normal. [place] Vickers MD assessment of judgme nt and insight E&M Alert and oriented to time, place and person. Mood and affect are normal. [place] Vickers MD INSURANCE PROVIDERS Payer name Policy type / Coverage type [facility] green party ID COVENTRY- OPEN ACCESS/PPO Other [id number] TREATMENT PLAN Date Name Performer FOLLOW UP: H er updated medication list for this problem includes: Ranitidine Hcl 300 Mg Caps (Ranitidine hcl) ..... Take one a day Omeprazole 40 Mg Cpdr (Omeprazole) ..... 1 tab daily B P today: 148/90 Prior BP: 121/70 (07/07/2009) D iscussed lifestyle modifications, diet, antacids/medications, and preventive measures. Handout provided. [place] Vickers MD FOLLOW UP: H er updated medication list for this problem includes: Aspirin 81 Mg Tabs (Aspirin) ..... One tab. daily Coreg 25 Mg Tabs (Carvedilol) ..... One tab. twice daily Hydrochlorothiazide 12.5 Mg Caps (Hydrochlorothiazide) ..... One tab. daily [place] Vickers MD FOLLOW UP: H er updated medication list for this problem includes: Aspirin 81 Mg Tabs (Aspirin) ..... One tab. daily Coreg 25 Mg Tabs (Carvedilol) ..... One tab. twice daily BP today: 148/90 Prior BP: 121/70 (07/07/2009) N uclear Stress Findings: No EKG changes diagnostic for ischemia. [facility] (04/25/2002) C ardiac Cath: Normal coronary arteries. N Ormal LV systolic function. N ormal LVEDP. [facility] (11/21/2003) T SH: 2.59 (04/05/2008) T4 (total): 13.5 (04/05/2008) E chocardiogram: The left ventricular chamber size is normal. Wall thickness is increased consistent with mild c oncentric left ventricular hypertrophy. Normal left ventricular function. LV EF is estimated at 60% P ulmonic valve not visualized due to technical limitations. M inimal mitral regurgitation. M inimal tricuspid regurgitation. [facility] (04/05/2008) [place] Vickers MD f/u: H er updated medication list for this problem includes: Aspirin 81 Mg Tabs (Aspirin) ..... One tab. daily Coreg Cr 80 Mg Cp24 (Carvedilol phosphate) ..... One tab. daily BP today: 121/70 P rior BP: 134/80 (03/29/2008) [place] Vickers MD f/u: H er updated medication list for this problem includes: Lipitor 10 Mg Tabs (Atorvastatin calcium) ..... One tab. daily Trilipix 135 Mg Cpdr (Choline fenofibrate) ..... Take one a day [place] Vickers MD f/u: H er updated medication list for this problem includes: Ranitidine Hcl 300 Mg Caps (Ranitidine hcl) ..... Take one a day BP today: 121/70 Prior BP: 134/80 (03/29/2008) D iscussed lifestyle modifications, diet, antacids/medications, and preventive measures. Handout provided. [place] Vickers MD FU will have echo an d tsh: H er updated medication list for this problem includes: Lipitor 10 Mg Tabs (Atorvastatin calcium) ..... One tab. daily [place] Vickers MD FU will have echo and tsh [place] Vickers MD FU will have echo an d tsh: H er updated medication list for this problem includes: Aspirin 81 Mg Tabs (Aspirin) ..... One tab. daily Coreg Cr 80 Mg Cp24 (Carvedilol phosphate) ..... One tab. daily BP today: 134/80 [place] Vickers MD Date Name Complete Echo THYROID PANEL WITH T KATI, 3RD GENERATION
--- OUTSIDE RECORDS SUMMARY | 2024-04-04 22:10 | XMS_ITS ---
Author Organization [facility] [address] Address [address] [place] [address] Care Team Providers Care Profile Stitching Machine Operator Name Role Phone Rinku Lester MD Primary Care Provider + [phone] James Rodriguez MD PhD Unavailable [phone] Ron Jacques MD Unavailable [phone] Raul Russo MD Unavailable [phone] Active Problems Problem Noted Date Diagnosed Date Seroma of breast 05/12/2022 Overview (05/12/2022): Added automatically from request for surgery [id number] Prevention of chemotherapy-induced neutropenia 0 04/30/2020 Malignant neoplasm of left female breast 020 Overview (02/20/2020): Added automatically from request for surgery [id number] Malignant neoplasm of upper- outer quadrant of left breast in female, estrogen receptor negative 01/23/2020 Cancer Staging:Pathologic stage from 04/07/2020:Stage IIA(pT2, pN0(sn), cM0, G2, ER-, PA-, HER2-) - Signed by James Rodriguez MD PhD on 04/07/2020 Assessment & Plan (04/01/2022 3:05 PM QUALITY CONTROL ASSESSOR): Recurrent area of tenderness with induration, minimal erythema throughout, we will ask for radiology for ultrasound guided aspiration of this as well as cytology and culture. She will finish the keflex today and start bactrim tomorrow. Patient Is understanding of the treatment plan. Current Oncology Plans No current plan information found. Past Plans Oncology Chemotherapy Treatment Plan Name Start Date Discontinue Date Treatment Medications Discontinue Reason Plan Provider Cycles TC: (DOCEtaxe l / Cyclophos phamide) 21 Day Cycles - Breast 1 09/03/2020 cycloPHOSphamide (CYTOXAN) IVPB (vial 20 mg/mL) ([id number])DOCEtaxel (TAXOTERE) IVPB in 250 mL (vial 20mg/mL) Therapy Complete Zak Alcantar MD 4 of 4 cycles started Radiation Treatments * Plan Last Treated On Elapsed Days Fractions Treated Prescribed Fraction Dose Prescribed Total Dose LT BRS BOOST 09/02/2020 29 4 250 cGy 1,000 c Gy LT BREAST 08/26/2020 22 16 266 cGy 4,256 cGy Reference Point Last Treated On Elapsed Days Session Dose Total Dose LT BOOST PDPV 09/02/2020 29 250 cGy 1,000 cGy LT BREAST 08/26/2020 22 266 cGy 4,256 cGy Lifetime Dose Tracking * Chemical Lifetime Dose Automatic Entry Manual Entr y Fluoro Time 0.208 minutes 0.208 minutes 0 minutes cyclophosphamide 2,440.4 mg/m2 (4,728 mg) 2,440.4 mg/m2 (4,728 mg) 0 mg/m2 (0 mg) Air kerma at the reference point (Ka,r) 1.37 mGy 1.37 mGy 0 mGy Resolved Problems Problem Noted Date Diagnosed Date Resolved Date Fitting and adjustment of vascular catheter 04/17/2020 05/04/2022
--- OUTSIDE RECORDS SUMMARY | 2024-04-04 22:10 | XMS_ITS | Continuity of Care Document ---
Author Organization [facility] Address [id number] [place] [address] [address] [place] [address] Phone Care Team Providers Care Brick Sorter Name Role Phone Liz Smyth Unavailable Unavailable Advance Directives Directive Yes / No Effective Date File Name No Information Encounters Encounter Description Practice Location Reason(s) For Visit Diagnoses Date Provider Providers Copied on Encounter [facility], [address], [place], [place], [id number], [place] tel:[phone] [facility] No Information Mar-0 2-200 [address]. [address] , [address], [place], [place], [facility], [place]. tel:[phone] Referring Provider: Rakan Toribio, [address] [place] [address], [facility]. tel:[phone] Family History Family Member Type Diagnosis Age At Onset No Information Payers Payer name Insurance type Covered green party ID Authoriza tion(s) No Information Social History Type Description Quantity Date Captured Comments Sex Female Smoking Status No Information Chief Complaint And Reason For Visit No Information Reason For Referral Reason For Referral No Information History Of Present Illness Encounter Date Complaint History Of Prese nt Illness No Information Functional Status Date Functional Assessmen t No Information Instructions Date Instruction Additional Infor mation No Information Assessments Type Assessment Date No Information Patient Care Teams Name Effective Dates (start - stop) Status Members No Information
[2024-04-04 22:13] VITALS: BP 153/87; PULSE 120; RESP 15; TEMP 36.4; O2SAT 99
--- NOTE | 2024-04-05 00:20 | PC.NURSE ---
Patient approached triage desk stating that she was going to leave due to wait times. Pt advised to be seen at nearest ED for warranting symptoms. Pt stated shes already made an appointment with her pcp for in the morning. Pt ambulated to ED exit with steady gait and no signs for concern at this time.
--- OUTSIDE RECORDS SUMMARY | 2024-04-05 00:32 | XMS_ITS | Clinical Summary ---
Author Organization [facility] Karol Corcoran Address [address] [place] [address] Care Team Providers Care Stage Set Designer Name Role Phone Rinku Lester MD Primary Care Provider [phone] Allergies Active Allergy Reactions Criticality Noted Date [...] on file Legal Sex Female 4:11 PM MEDIA/INSTRUCTIONAL DESIGNER Gender Identity Not on file Sexual Orientation [...] cm (5' 2 ) 03/02/2023 10:12 AM MEDIA/INSTRUCTIONAL DESIGNER Body Mass Index 31.46 03/02/2023 10:12 AM MEDIA/INSTRUCTIONAL DESIGNER Plan of Treatment Upcoming Encounters Date Type Department Care Team (Late st Contact Info) Description 05/17/2024 1:15 PM CDT Office Visit [facility] Oncology and Hematology - [place] [address] [facility] [address] [place] [address] Rich De Souza MD [address] [facility] [address] [place] [address] Health Maintenance Due Date Last [...] MEDICARE PART A AND B Care Teams Stage Set Designer Relationship Specialty Start Date End Date Rinku Lester MD [address] [place] [address] PCP - General Family Practice 03/02/23
--- OUTSIDE RECORDS SUMMARY | 2024-04-05 00:32 | XMS_ITS | CONTINUITY OF CARE DOCUMENT ---
Author Name cydney lamas Address Unknown Organization [facility] Address [address] [place] [address] Phone [phone] Care Team Providers Care Tree Trimming Supervisor Name Role Phone [place] HAIRST[place], [place] Unavailable [phone] CESIA HAIRSTON, VAHE F Unavailable CESIA HAIRSTON, VAHE F Unavailable PROBLEMS Condition Status Date Provider Notes GERD active Tiffany Stahlschmidt HYPERCHOLESTEROLEMIA active Tiffany Stahlsch midt SLEEP APNEA active Tiffany Stahlschmidt HTN ESSENTIAL active Tiffany Stahlschmidt CHEST PAIN, NL CATH IN 2003 active ? [place] pereira MD SLEEP APNEA USES CPAP active [place] Robison ENCOUNTERS Date Type Provider Location Encounter Diagnosis - In-person encounter Office Visit [place] Vickers MD [place] [facility] - In-person encounter Office Visit [place] Vickers MD [facility] CHEST PAIN, NL CATH IN 2004SLEEP APNEA USES CPAP - In-person encounter Office Visit [place] Vickers MD [place] [facility] VITAL SIGNS Date Observation Value Provider [...] PACO weight E&M 201 [lb_av] Skye Wang [place] RESULTS Date Observation Value Provider Reference Range [...] Payer name Policy type / Coverage type [facility] libertarian ID COVENTRY- OPEN ACCESS/PPO Other [id number] TREATMENT PLAN Date Name Performer FOLLOW UP: [...] Findings: No EKG changes diagnostic for ischemia. [facility] (04/25/2002) C ardiac Cath: Normal coronary [...]
--- OUTSIDE RECORDS SUMMARY | 2024-04-05 00:32 | XMS_ITS | Continuity of Care Document ---
Author Organization [facility] Address [address] [place] [address] [address] [place] [address] Phone Care Team Providers Care Bank Sales And Service Manager Name Role Phone Liz Smyth Unavailable Unavailable Advance Directives Directive Yes / No Effective Date File Name No Information Encounters Encounter Description Practice Location Reason(s) For Visit Diagnoses Date Provider Providers Copied on Encounter [facility], [address], [place], [place], [id number], [place] tel:[phone] [facility] No Information Mar-0 2-200 5 [address]. [address] , [address], [place], [place], [facility], [place]. tel:[phone] Referring Provider: Rakan Toribio, [address] [place] [address], [facility]. tel:[phone] Family History Family Member Type Diagnosis Age At Onset No Information Payers Payer name Insurance type Covered alliance party ID Authoriza tion(s) No Information Social [...]
--- OUTSIDE RECORDS SUMMARY | 2024-04-05 00:32 | XMS_ITS ---
Author Organization [facility] [address] Address [address] [place] [address] Care Team Providers Care Strategies Analyst Name Role Phone Rinku Lester MD Primary Care Provider + [phone] James Rodriguez MD PhD Unavailable [phone] Ron Jacques MD Unavailable [phone] Raul Russo MD Unavailable [phone] Active Problems Problem Noted Date Diagnosed Date Seroma of breast 05/12/2022 Overview (05/12/2022): Added automatically from request for surgery [id number] Prevention of chemotherapy-induced neutropenia 0 04/30/2020 Malignant neoplasm of left female breast 020 Overview (02/20/2020): Added automatically from request for surgery [id number] Malignant neoplasm of upper- outer quadrant of left breast in female, estrogen receptor negative 01/23/2020 Cancer Staging:Pathologic stage from 04/07/2020:Stage IIA(pT2, pN0(sn), cM0, G2, ER-, HI-, HER2-) - Signed by James Rodriguez MD PhD on 04/07/2020 Assessment & Plan (04/01/2022 3:05 PM CLOTHING WORKER): Recurrent area of tenderness with induration, minimal [...]
--- OUTSIDE RECORDS SUMMARY | 2024-04-05 00:32 | XMS_ITS | Referral Summary ---
Author Organization [facility] [address] Address [address] [place] [address] Care Team Providers Care Automatic Cigar Wrapper Tender Name Role Phone Rinku Lester MD Primary Care Provider + [phone] James Rodriguez MD PhD Unavailable + [phone] Ron Jacques MD Unavailable [phone] Raul Russo MD Unavailable [phone] Allergies Active Allergy Reactions Criticality Noted [...] (05/12/2022): Added automatically from request for surgery [id number] Prevention of chemotherapy-induced neutropenia 0 04/30/2020 Malignant neoplasm of left female breast 020 Overview (02/20/2020): Added automatically from request for surgery [id number] Malignant neoplasm of upper- outer quadrant of left breast in female, estrogen receptor negative 01/23/2020 Cancer Staging:Pathologic stage from 04/07/2020:Stage IIA(pT2, pN0(sn), cM0, G2, ER-, CO-, HER2-) - Signed by James Rodriguez MD PhD on 04/07/2020 Assessment & Plan (04/01/2022 3:05 PM COMBUSTION ANALYST): Recurrent area of tenderness with induration, minimal [...] on file Legal Sex Female 11:48 AM COMBUSTION ANALYST Gender Identity Not on file Sexual Orientation [...] on file Medical Devices Implanted Type Area Packing House Supervisor Device Identifier Shelf Expiration Date Model / Serial / Lot [employer] [id number] Powerport Mri Airguard 8fr 1 Lumen Attachable Catheter Latex Free - [id number] Implanted:Qty: 1 on 04/14/2020 by Ron Jacques MD at [facility] [employer] 02/27/2021 [id number] / / [id number] Procedures Procedure Name Priority Date/Time Associated Diagnosis Comments POCT LIPID PANEL Routine 09/14/2023 9:02 AM CDT Lipid screening EGFR Routine 05/07/2022 1:45 PM COMBUSTION ANALYST Malignant neoplasm of upper-outer quadrant of left breast in female, estrogen receptor negative (CMS/HCC) (HCC) DIAGNOSTIC MAMMOGRAM BILATERAL W YADI Schedule Routine, Read Routine (OP Routine) 06/10/2021 9:02 AM CDT Malignant neoplasm of upper-outer quadrant of left breast in female, estrogen receptor negative (CMS/HCC) (HCC) HEMOGLOBIN A1C Routine 04/23/2020 10:50 AM COMBUSTION ANALYST from Last 3 Months or Most Recently [...] - Final * eGFR (05/07/2022 1:45 PM COMBUSTION ANALYST) eGFR 98 mL/min/1. 73 m2 [facility] ([place]) Comment: Interpretive Data Reference Interval Normal >/= [...] last reviewed 2020. Blood 05/07/2022 1:45 PM COMBUSTION ANALYST 05/07/2022 2:43 PM COMBUSTION ANALYST us Dahlia Rodriguez LINER INSERTER LAB BLOOD ORDERABLES Final Result [facility]) [facility] Department [place] [employer] [place] [address] * Diagnostic Mammogram Bilateral W [...] * (ABNORMAL) Hemoglobin A1c (04/23/2020 10:50 AM COMBUSTION ANALYST) Hgb A1C 7.3(H) 4.0 - 5.6 % [facility] ([facility]) Estimated Average Glucose 163 mg/dL [facility] ([facility]) Comment: The ADA recommends reporting an estimated Average Glucose (eAG) with all Hemoglobin A1c results using the equation derived from a study of 507 normal and diabetic adults. Minority populations were underrepresented and children were not included. (Diabetes Care 31:5702-0233, 2008). The eAG is not equivalent to a fasting glucose. Blood specimen (specimen) 04/23/2020 10:50 AM COMBUSTION ANALYST 04/23/2020 10:53 AM COMBUSTION ANALYST us Aleksandar LUKE LAB BLOOD ORDERABLES Final R esult [facility] ([place]) [facility] [place] [address] from Last 3 Months or Most Recently Relevant to Health Maintenance Insurance MEDICARE AETNA SENIOR SUPPLEMENT MEDICARE [employer] MEDICARE AETNA SENIOR SUPPLEMENT Care Teams Automatic Cigar Wrapper Tender Relationship Specialty Start Date End Date Rinku Lester MD PCP - General Family Medicine 11/07/19 James Rodriguez MD PhD [address] [place] [address] Radiation Oncologist Radiation Oncology 04/07/20 Ron Jacques MD [address] [place] [address] Referring Physician General Surgery 04/07/20 Raul Russo MD [address] [place] [address] Consulting Physician Hematology and Oncology 02/25/21
--- OUTSIDE RECORDS SUMMARY | 2024-04-05 00:32 | XMS_ITS | Clinical Summary ---
Author Organization [facility] [address] Address [address] [place] [address] Care Team Providers Care Locksmith Helper Name Role Phone Rinku Lester MD Primary Care Provider + [phone] James Rodriguez MD PhD Unavailable + [phone] Ron Jacques MD Unavailable [phone] Raul uRsso MD Unavailable [phone] Allergies Active Allergy Reactions Criticality Noted [...] (05/12/2022): Added automatically from request for surgery [id number] Prevention of chemotherapy-induced neutropenia 0 04/30/2020 Malignant neoplasm of left female breast 020 Overview (02/20/2020): Added automatically from request for surgery [id number] Malignant neoplasm of upper- outer quadrant of left breast in female, estrogen receptor negative 01/23/2020 Cancer Staging:Pathologic stage from 04/07/2020:Stage IIA(pT2, pN0(sn), cM0, G2, ER-, MA-, HER2-) - Signed by James Rodriguez MD PhD on 04/07/2020 Assessment & Plan (04/01/2022 3:05 PM BIZTALK CONSULTANT): Recurrent area of tenderness with induration, minimal [...] on file Legal Sex Female 11:48 AM BIZTALK CONSULTANT Gender Identity Not on file Sexual Orientation [...] 12/26/2019, 12/26/2019 Medical Devices Implanted Type Area Head Of Mobile Device Identifier Shelf Expiration Date Model / Serial / Lot [employer] [id number] Powerport Mri Airguard 8fr 1 Lumen Attachable Catheter Latex Free - [id number] Implanted:Qty: 1 on 04/14/2020 by Ron Jacques MD at [facility] [employer] 02/27/2021 [id number] / / [id number] Procedures Procedure Name Priority Date/Time Associated Diagnosis Comments POCT LIPID PANEL Routine 09/14/2023 9:02 AM CDT Lipid screening EGFR Routine 05/07/2022 1:45 PM BIZTALK CONSULTANT Malignant neoplasm of upper-outer quadrant of left breast in female, estrogen receptor negative (CMS/HCC) (HCC) DIAGNOSTIC MAMMOGRAM BILATERAL W YADI Schedule Routine, Read Routine (OP Routine) 06/10/2021 9:02 AM CDT Malignant neoplasm of upper-outer quadrant of left breast in female, estrogen receptor negative (CMS/HCC) (HCC) HEMOGLOBIN A1C Routine 04/23/2020 10:50 AM BIZTALK CONSULTANT from Last 3 Months or Most Recently [...] - Final * eGFR (05/07/2022 1:45 PM BIZTALK CONSULTANT) eGFR 98 mL/min/1. 73 m2 [facility] ([place]) Comment: Interpretive Data Reference Interval Normal >/= [...] last reviewed 2020. Blood 05/07/2022 1:45 PM BIZTALK CONSULTANT 05/07/2022 2:43 PM BIZTALK CONSULTANT us Dahlia Rodriguez REHABILITATOR LAB BLOOD ORDERABLES Final Result Performing Organization Address City/State/[facility] Co de Phone Number [facility] ([place]) 1 [facility] Department [place] [address] * Diagnostic Mammogram Bilateral W [...] no significant interval change. us Dahlia Rodriguez REHABILITATOR IMG MAMMO PROCEDURES Final Result * (ABNORMAL) Hemoglobin A1c (04/23/2020 10:50 AM BIZTALK CONSULTANT) Hgb A1C 7.3(H) 4.0 - 5.6 % [facility] ([facility]) Estimated Average Glucose 163 mg/dL [facility] ([facility]) Comment: The ADA recommends reporting an estimated Average Glucose (eAG) with all Hemoglobin A1c results using the equation derived from a study of 507 normal and diabetic adults. Minority populations were underrepresented and children were not included. (Diabetes Care 31:5176-5688, 2008). The eAG is not equivalent to a fasting glucose. Blood specimen (specimen) 04/23/2020 10:50 AM BIZTALK CONSULTANT 04/23/2020 10:53 AM BIZTALK CONSULTANT us Aleksandar LUKE LAB BLOOD ORDERABLES Final R esult [facility] ([place]) 1 [facility] Department [place] [address] from Last 3 Months or Most Recently Relevant to Health Maintenance Insurance MEDICARE AETNA SENIOR [facility] MEDICARE [facility] MEDICARE AETNA SENIOR SUPPLEMENT Care Teams Locksmith Helper Relationship Specialty Start Date End Date Rinku Lester MD PCP - General Family Medicine 11/07/19 James Rodriguez MD PhD [address] [place] [address] Radiation Oncologist Radiation Oncology 04/07/20 Ron Jacques MD [address] [place] [address] Referring Physician General Surgery 04/07/20 Raul Russo MD [address] [place] [address] Consulting Physician Hematology and Oncology 02/25/21
== END 2024-04-05 00:20 | disposition left against medical advice (07) ==
PROVIDERS: PCP Family Medicine
DX: R11.2 Nausea with vomiting, unspecified (principal)
CPT/HCPCS: 99199

== ENCOUNTER 2024-05-09 04:28 | Emergency (ER) | payer OTHER, SELFPAY ==
--- NOTE | ~2024-05-09 | CT_ITS ---
Non-contrast CT scan of the Abdomen and Pelvis Clinical indication: Left flank pain Technique: 2.5 mm axial scans were obtained through the abdomen and pelvis without intravenous or or al contrast. Dose reduction technique was used on this scan by utilizing automated exposure control a nd iterative reconstruction technique. The dose-length product (DLP) was 480.08 mGy-cm. COMPARISON: 06/02/2023 Findings: Images through the lung bases reveal no abnormalities. There is a 6 cm proximal left ureteral stone with moderate left hydronephrosis this level. Additional nonobstructing left lower pole renal stones are present. No right renal or right ureteral stone. No right hydronephrosis. The liver, spleen, pancreas, and adrenals appear normal. Cholecystectomy clips are present. There are atherosclerotic calcifications of the aorta. . There is no evidence of bowel obstruction. Images through the pelvis were performed. There is no evidence of ascites or lymphadenopathy. Urinary bladder unremarkable. No pelvic mass seen. Impression: 6 mm proximal left ureteral stone with moderate left hydronephrosis. Additional nonobstructing left renal stone at the lower pole. Reviewed, dictated and finalized at [facility]. Impression: 6 mm proximal left ureteral stone with moderate left hydronephrosis. Additional nonobstructing left renal stone at the lower pole.
[2024-05-09 04:30] VITALS: BP 153/78; PULSE 103; RESP 17; TEMP 36.3; O2SAT 100
--- OUTSIDE RECORDS SUMMARY | 2024-05-09 04:31 | XMS_ITS | CONTINUITY OF CARE DOCUMENT ---
Author Name cydney lamas Address Unknown Organization [facility] Address [address] [place] [address] Phone [phone] Care Team Providers Care Rv Body Mechanic Name Role Phone [place]o HAIRSTON, [place] Unavailable CESIA HAIRSTON, VAHE F Unavailable [phone] CESIA HAIRSTON, VAHE F Unavailable PROBLEMS Condition Status Date Provider Notes GERD active Tiffany Stahlschmidt HYPERCHOLESTEROLEMIA active Tiffany Stahlsch midt SLEEP APNEA active Tiffany Stahlschmidt HTN ESSENTIAL active Tiffany Stahlschmidt CHEST PAIN, NL CATH IN 2003 active ? [place] pereira MD SLEEP APNEA USES CPAP active [place] Robison ENCOUNTERS Date Type Provider Location Encounter Diagnosis - In-person encounter Office Visit [place] Vickers MD [place] [facility] - In-person encounter Office Visit [place] Vickers MD [place] [facility] CHEST PAIN, NL CATH IN 2004SLEEP APNEA USES CPAP - In-person encounter Office Visit [place] Vickers MD [place] [facility] VITAL SIGNS Date Observation Value Provider [...] PACO weight E&M 201 [lb_av] Skye Wang RI RESULTS Date Observation Value Provider Reference Range [...] Payer name Policy type / Coverage type [facility] green party ID COVENTRY- OPEN ACCESS/PPO Other [id number] TREATMENT PLAN Date Name Performer FOLLOW UP: [...] Findings: No EKG changes diagnostic for ischemia. [facility] (04/25/2002) C ardiac Cath: Normal coronary [...]
--- OUTSIDE RECORDS SUMMARY | 2024-05-09 04:31 | XMS_ITS | Encounter Summary ---
Author Organization [facility] Address [address] [place] [address] Care Team Providers Care Crna Name Role Phone Rinku Lester MD Primary Care Provider [phone] Encounter Details Date Type Department Care Team (Late st Contact Info) Description 05/05/2024 External Device Data [place] ABSTRACTION Provider, Abstract NO ADDRESS ON FILE Social History Tobacco Use Types Packs/Day Years Used Date Smoking Tobacco: Never Smokeless Tobacco: Never Alcohol Use Standard Drinks/Week Comments Never 0 (1 standard drink = 0.6 oz pur e alcohol) Comments Unknown Sex and Gender Information Value Date Recorded Sex Assigned at Not on file Legal Sex Female 4:11 PM ROLLER MILL TENDER Gender Identity Not on file Sexual Orientation Not on file documented as of this encounter Plan of Treatment Upcoming Encounters Date Type Department Care Team (Late st Contact Info) Description 05/17/2024 1:15 PM CDT Office Visit [facility] Oncology and Hematology - [place] [address] [place] [address] Rich De Souza MD [address] [facility] [address] [place] [address] documented as of this encounter Visit Diagnoses Not on filedocumented in this encounter Care Teams Crna Relationship Specialty Start Date End Date Rinku Lester MD [address] [place] [address] PCP - General Family Practice 03/02/23 documented as of this encounter
--- OUTSIDE RECORDS SUMMARY | 2024-05-09 04:31 | XMS_ITS | Continuity of Care Document ---
Author Organization [facility] Address [address] [place] [address] [address] [place] [address] Phone Care Team Providers Care Data Integrity Analyst Name Role Phone Liz Smyth Unavailable Unavailable Advance Directives Directive Yes / No Effective Date File Name No Information Encounters Encounter Description Practice Location Reason(s) For Visit Diagnoses Date Provider Providers Copied on Encounter [facility], [address], [place], [place], [id number], [place] tel:[phone] [facility] No Information Mar-0 2-[address] , [address], [place], [place], [facility], [place]. tel:[phone] Referring Provider: Rakan Toribio, [address] [place] [address], [facility]. tel:[phone] Family History Family Member Type Diagnosis Age At Onset No Information Payers Payer name Insurance type Covered republican ID Authoriza tion(s) No Information Social History [...]
--- OUTSIDE RECORDS SUMMARY | 2024-05-09 04:31 | XMS_ITS ---
Author Organization [facility] [address] Address [address] [place] [address] Care Team Providers Care Badger Distiller Operator Name Role Phone Rinku Lester MD Primary Care Provider + [phone] James Rodriguez MD PhD Unavailable + [phone] Ron Jacques MD Unavailable [phone] Raul Russo MD Unavailable [phone] Active Problems Problem Noted Date Diagnosed Date Seroma of breast 05/12/2022 Overview (05/12/2022): Added automatically from request for surgery [id number] Prevention of chemotherapy-induced neutropenia 0 04/30/2020 Malignant neoplasm of left female breast 020 Overview (02/20/2020): Added automatically from request for surgery [id number] Malignant neoplasm of upper- outer quadrant of left breast in female, estrogen receptor negative 01/23/2020 Cancer Staging:Pathologic stage from 04/07/2020:Stage IIA(pT2, pN0(sn), cM0, G2, ER-, NM-, HER2-) - Signed by James Rodriguez MD PhD on 04/07/2020 Assessment & Plan (04/01/2022 3:05 PM RADIATOR TESTER): Recurrent area of tenderness with induration, minimal erythema throughout, we will ask for radiology for ultrasound guided aspiration of this as well as cytology and culture. She will finish the keflex today and start bactrim tomorrow. Patient Is understanding of the treatment plan. Current Treatment and Therapy Plans No current plan information found. Past Treatment and Therapy Plans Oncology Chemotherapy Treatment Plan Name Start Date Discontinue Date Treatment Medications Discontinue Reason Plan Provider Cycles TC: (DOCEtaxe l / Cyclophos phamide) 21 Day Cycles - Breast 1 09/03/2020 cycloPHOSphamide (CYTOXAN) IVPB (vial 20 mg/mL) ([id number])DOCEtaxel (TAXOTERE) IVPB in 250 mL (vial 20mg/mL) Therapy Complete Zak Alcantar MD 4 of 4 cycles started Radiation Treatments * Course [id number]/04/2020 - 09/02/2020 Treatment Period Energy Fraction Dose Fractions Total Dose Plans Planned LT BRS BOOST 08/27/2020 - 09/02/2020 250 4 / 1,000 LT BREAST 08/04/2020 - 08/26/2020 266 16 / 4,256 Reference Points Delivered LT BOOST PDPV 08/27/2020 - 09/02/2020 1,000 LT BREAST 08/04/2020 - 08/26/2020 4,256 Lifetime Dose Tracking * Chemical Lifetime Dose [...]
--- OUTSIDE RECORDS SUMMARY | 2024-05-09 04:31 | XMS_ITS | Referral Summary ---
Author Organization [facility] [address] Address [address] [place] [address] Care Team Providers Care Director Appointment Name Role Phone Rinku Lester MD Primary Care Provider + [phone] James Rodriguez MD PhD Unavailable + [phone] Ron Jacques MD Unavailable [phone] Raul Russo MD Unavailable [phone] Allergies Active Allergy Reactions Criticality Noted [...] (05/12/2022): Added automatically from request for surgery [id number] Prevention of chemotherapy-induced neutropenia 0 04/30/2020 Malignant neoplasm of left female breast 020 Overview (02/20/2020): Added automatically from request for surgery [id number] Malignant neoplasm of upper- outer quadrant of left breast in female, estrogen receptor negative 01/23/2020 Cancer Staging:Pathologic stage from 04/07/2020:Stage IIA(pT2, pN0(sn), cM0, G2, ER-, [place]-, HER2-) - Signed by James Rodriguez MD PhD on 04/07/2020 Assessment & Plan (04/01/2022 3:05 PM BUSINESS SUPPORT): Recurrent area of tenderness with induration, minimal erythema throughout, we will ask for radiology for ultrasound guided aspiration of this as well as cytology and culture. She will finish the keflex today and start bactrim tomorrow. Patient Is understanding of the treatment plan. Resolved Problems Problem Noted Date Diagnosed Date Resolved Date Fitting and adjustment of vascular catheter 04/17/2020 05/04/2022 Immunizations Immunization Administration Dates Next Due Influenza, Quadrivalent, Hig [...] on file Legal Sex Female 11:48 AM BUSINESS SUPPORT Gender Identity Not on file Sexual Orientation [...] on file Medical Devices Implanted Type Area Fitting Supervisor Device Identifier Shelf Expiration Date Model / Serial / Lot [employer] [id number] Powerport Mri Airguard 8fr 1 Lumen Attachable Catheter Latex Free - [id number] Implanted:Qty: 1 on 04/14/2020 by Ron Jacques MD at [facility] [employer] 02/27/2021 [id number] / / [id number] Procedures Procedure Name Priority Date/Time Associated Diagnosis Comments POCT LIPID PANEL Routine 09/14/2023 9:02 AM CDT Lipid screening EGFR Routine 05/07/2022 1:45 PM BUSINESS SUPPORT Malignant neoplasm of upper-outer quadrant of left breast in female, estrogen receptor negative (HCC) DIAGNOSTIC MAMMOGRAM BILATERAL W TOM Schedule Routine, Read Routine (OP Routine) 06/10/2021 9:02 AM CDT Malignant neoplasm of upper-outer quadrant of left breast in female, estrogen receptor negative (HCC) HEMOGLOBIN A1C Routine 04/23/2020 10:50 AM BUSINESS SUPPORT from Last 3 Months or Most Recently Relevant to Health Maintenance Results * POCT lipid panel (09/14/2023 9:02 AM CDT) Cholesterol, POC 126 mg/dL HDL, POC 48 mg/dL Triglycerides, POC 148 mg/dL LDL Cholesterol POC 48 mg/dL Chol/HDL Ratio, POC 1.0 Non-HDL Cholesterol, POC 78 mg/dL Cholesterol Total, POC 126 mg/dL Capillary blood 09/14/2023 9 :02 AM CDT Fransico Rojo MD POINT OF CARE TEST ORDERABLES Ed ited Result - Final * eGFR (05/07/2022 1:45 PM BUSINESS SUPPORT) eGFR 98 mL/min/1. 73 m2 [facility] ([place]) Comment: Interpretive Data Reference Interval Normal >/= [...] last reviewed 2020. Blood 05/07/2022 1:45 PM BUSINESS SUPPORT 05/07/2022 2:43 PM BUSINESS SUPPORT us Dahlia Rodriguez DIABETES CLINICAL MANAGER LAB BLOOD ORDERABLES Final Result [facility] ([place]) 1 [facility] Department [place] [address] * Diagnostic Mammogram Bilateral W Tom (06/10/2021 9:02 AM CDT) Anatomical Region Laterality [...] BREAST LEFT LIMITED, DIAGNOSTIC MAMMOGRAM BILATERAL W TOM ORDERING HEALTHCARE PROVIDER: DAHLIA RODRIGUEZ HISTORY: 65-year-old [...] * (ABNORMAL) Hemoglobin A1c (04/23/2020 10:50 AM BUSINESS SUPPORT) Hgb A1C 7.3(H) 4.0 - 5.6 % [facility] ([place]) Estimated Average Glucose 163 mg/dL [facility] ([place]) Comment: The ADA recommends reporting an estimated Average Glucose (eAG) with all Hemoglobin A1c results using the equation derived from a study of 507 normal and diabetic adults. Minority populations were underrepresented and children were not included. (Diabetes Care 31:2933-0275, 2008). The eAG is not equivalent to a fasting glucose. Blood specimen (specimen) 04/23/2020 10:50 AM BUSINESS SUPPORT 04/23/2020 10:53 AM BUSINESS SUPPORT Aleksandar LUKE LAB BLOOD ORDERABLES Final R esult [facility] ([place]) 1 [facility] Department [place] [address] from Last 3 Months or Most Recently Relevant to Health Maintenance Insurance [facility] [employer] INS [place] MEDICARE AETNA SENIOR SUPPLEMENT Care Teams Director Appointment Relationship Specialty Start Date End Date Rinku Lester MD PCP - General Family Medicine 11/07/19 James Rodriguez MD PhD [address] [place] [address] Radiation Oncologist Radiation Oncology 04/07/20 Ron Jacques MD [address] [place] [address] Referring Physician General Surgery 04/07/20 Raul Russo MD [address] [place] [address] Consulting Physician Hematology and Oncology 02/25/21
--- OUTSIDE RECORDS SUMMARY | 2024-05-09 04:31 | XMS_ITS | Clinical Summary ---
Author Organization [facility] Karol Corcoran Address [address] [place] [address] Care Team Providers Care It Service Delivery Manager Name Role Phone Rinku Lester MD Primary [...] Encounters Date Type Department Care Team Description 05/05/2024 External Device Data STL ABSTRACTION Provider, Abstract 05/04/2024 External Device Data STL ABSTRACTION Provider, Abstract 05/02/2024 External Device Data STL ABSTRACTION Provider, Abstract 05/02/2024 External Device Data STL ABSTRACTION Provider, Abstract 04/18/2024 External Device Data STL ABSTRACTION Provider, Abstract 03/21/2024 External Device Data STL ABSTRACTION Provider, [...] on file Legal Sex Female 4:11 PM EPIC WILLOW ANALYST Gender Identity Not on file Sexual [...] cm (5' 2 ) 03/02/2023 10:12 AM EPIC WILLOW ANALYST Body Mass Index 31.46 03/02/2023 10:12 AM EPIC WILLOW ANALYST Plan of Treatment Upcoming Encounters Date Type Department Care Team (Late st Contact Info) Description 05/17/2024 1:15 PM CDT Office Visit [facility] Oncology and Hematology - [place] [address] [place] [address] Rich De Souza MD [address] [facility] [address] [place] [address] Health Maintenance Due Date Last [...] series) 2014 OSTEOPOROSIS SCREENING 09/23/2019 PNEUMOCOCCAL VACCINE 50+ YEA RS (2 of 2 - PPSV23) 02/20/2020 12/26/2019 BREAST CANCER SCREENING 06/10/2022 06/10/2021 INFLUENZA VACCINE (#1) 2023 , 12/26/2019, 01/26/2019 COVID-19 Vaccine (5 - 2023-2 5 season) 2023 02/24/2021, 2020, 08/12/2020, Additional history exists Insurance AETNA MEDICARE SUPP AESSI MEDICARE PART A AND B Care Teams It Service Delivery Manager Relationship Specialty Start Date End Date Rinku Lester MD [address] [place] [address] PCP - General Family Practice 03/02/23
--- OUTSIDE RECORDS SUMMARY | 2024-05-09 04:31 | XMS_ITS | Clinical Summary ---
Author Organization [facility] [address] Address [address] [place] [address] Care Team Providers Care Viticulture Teacher Name Role Phone Rinku Lester MD Primary Care Provider + [phone] James Rodriguez MD PhD Unavailable [phone] Ron Jacques MD Unavailable [phone] Raul Russo MD Unavailable [phone] Allergies Active Allergy Reactions Criticality Noted [...] (05/12/2022): Added automatically from request for surgery [id number] Prevention of chemotherapy-induced neutropenia 0 04/30/2020 Malignant neoplasm of left female breast 020 Overview (02/20/2020): Added automatically from request for surgery [id number] Malignant neoplasm of upper- outer quadrant of left breast in female, estrogen receptor negative 01/23/2020 Cancer Staging:Pathologic stage from 04/07/2020:Stage IIA(pT2, pN0(sn), cM0, G2, ER-, WY-, HER2-) - Signed by James Rodriguez MD PhD on 04/07/2020 Assessment & Plan (04/01/2022 3:05 PM SMOKING PIPE MOUNTER): Recurrent area of tenderness with induration, minimal [...] Anxiety Depression Sleep apnea Kidney stones Cancer (HCC) breast ca Breast cancer (HCC) left [...] on file Legal Sex Female 11:48 AM SMOKING PIPE MOUNTER Gender Identity Not on file Sexual Orientation Not on file Obstetrics History Para Term AB IAB SAB Ectopic Multiple Livin g Live Births 3 3 3 Date Outcome GA Total Labor Labor/2nd/3rd Weight Sex Type Anes PTL Suzan A1 [...] 12/26/2019, 12/26/2019 Medical Devices Implanted Type Area Magistrate Judge Device Identifier Shelf Expiration Date Model / Serial / Lot [employer] [id number] Powerport Mri Airguard 8fr 1 Lumen Attachable Catheter Latex Free - [id number] Implanted:Qty: 1 on 04/14/2020 by Ron Jacques MD at [facility] [employer] 02/27/2021 [id number] / / [id number] Procedures Procedure Name Priority Date/Time Associated Diagnosis Comments POCT LIPID PANEL Routine 09/14/2023 9:02 AM CDT Lipid screening EGFR Routine 05/07/2022 1:45 PM SMOKING PIPE MOUNTER Malignant neoplasm of upper-outer quadrant of left breast in female, estrogen receptor negative (HCC) DIAGNOSTIC MAMMOGRAM BILATERAL W YADI Schedule Routine, Read Routine (OP Routine) 06/10/2021 9:02 AM CDT Malignant neoplasm of upper-outer quadrant of left breast in female, estrogen receptor negative (HCC) HEMOGLOBIN A1C Routine 04/23/2020 10:50 AM SMOKING PIPE MOUNTER from Last 3 Months or Most Recently [...] - Final * eGFR (05/07/2022 1:45 PM SMOKING PIPE MOUNTER) eGFR 98 mL/min/1. 73 m2 SHAUNA ROMERO ([place]) Comment: Interpretive Data Reference Interval Normal >/= [...] last reviewed 2020. Blood 05/07/2022 1:45 PM SMOKING PIPE MOUNTER 05/07/2022 2:43 PM SMOKING PIPE MOUNTER us Dahlia Rodriguez [employer] [employer] LAB BLOOD ORDERABLES Final Result Performing Organization Address City/State/[facility] Co de Phone Number SHAUNA [facility] 1 [facility] Department of Laboratories [place], [place] [id number] * Diagnostic Mammogram Bilateral W Yadi (06/10/2021 [...] there has been no significant interval change. Dahlia Rodriguez NP IMG MAMMO PROCEDURES Final Result * (ABNORMAL) Hemoglobin A1c (04/23/2020 10:50 AM SMOKING PIPE MOUNTER) Hgb A1C 7.3(H) 4.0 - 5.6 % SHAUAN ROMERO ([place]) Estimated Average Glucose 163 mg/dL [facility] ROMERO ([place]) Comment: The ADA recommends reporting an estimated Average Glucose (eAG) with all Hemoglobin A1c results using the equation derived from a study of 507 normal and diabetic adults. Minority populations were underrepresented and children were not included. (Diabetes Care 31:0029-1558, 2008). The eAG is not equivalent to a fasting glucose. Blood specimen (specimen) 04/23/2020 10:50 AM SMOKING PIPE MOUNTER 04/23/2020 10:53 AM SMOKING PIPE MOUNTER Aleksandar LUKE LAB BLOOD ORDERABLES Final R esult [facility] ([place]) 1 [facility] Department of Laboratories [place] [id number] from Last 3 Months or Most Recently Relevant to Health Maintenance Insurance MEDICARE AET SENIOR SUPPLEMENT MEDICARE [facility] MEDICARE AETNA SENIOR SUPPLEMENT Care Teams Viticulture Teacher Relationship Specialty Start Date End Date Rinku Lester MD PCP - General Family Medicine 11/07/19 James Rodriguez MD PhD [address] [place] [address] Radiation Oncologist Radiation Oncology 04/07/20 Ron Jacques MD [address] [place] [address]78 Referring Physician General Surgery 04/07/20 Raul Russo MD [address] [place] [id number] Consulting Physician Hematology and Oncology 02/25/21
[2024-05-09 04:56] LABS: Basophils Absolute Auto 0.1 K/mm3 (0.0-0.1); Basophils Percent Auto 0.7 % (0.2-1.2); Eosinophils Absolute Auto 0.2 K/mm3 (0-0.3); Hematocrit 44.5 % (37.0-47.0); Hemoglobin 14.7 g/dL (12.0-15.0); Immature Granulocyte Absolute 0.03 K/mm3 (0.00-0.031); Immature Granulocyte Percent A 0.4 % (0-0.5); Lymphocytes Absolute Auto 2.41 K/mm3 (0.9-3.2); Lymphocytes Percent Auto 31.3 % (18.3-44.2); Mean Corpuscular Hemoglobin 30.5 pg (26-34); Mean Corpuscular Volume 92.3 fl (80-100); Mean Platelet Volume 9.4 fl (7.4-10.4); Monocytes Absolute Auto 0.7 K/mm3 (0.1-0.6); Monocytes Percent Auto 9.6 % (2.6-8.5); Neutrophils Absolute Auto 4.3 K/mm3 (1.3-6.7); Platelet Count Result 240 k/mm3 (150-375); Red Blood Count 4.82 M/mm3 (4.2-5.4); Red Cell Distribution Width 12.7 % (11.5-14.5); White Blood Count 7.7 K/mm3 (4.5-10.0)
[2024-05-09] MEDS: SODIUM CHLORIDE 0.9% IV 1,000 ML 999 ML IV CONT (04:58)
[2024-05-09] MEDS: KETOROLAC 15 MG/ML VIAL (*BKC) IV PUSH (04:59)
[2024-05-09 05:07] LABS: Alanine Aminotransferase 26 U/L (6-35); Albumin Level 4.7 g/dL (3.5-5.1); Alkaline Phosphatase 97 U/L (38-126); Anion Gap 11 mmol/L (4-12); Aspartate Amino Transferase 26 U/L (14-36); Bilirubin,Total 1.3 mg/dL (0.2-1.3); Blood Urea Nitrogen 15 mg/dL (7-17); Calcium 9.5 mg/dL (8.4-10.2); Carbon Dioxide 28 mmol/L (22-30); Chloride 102 mmol/L (98-107); Estimated CRCL calculation 68 ml/min; Estimated Glomerular Filt Rate > 60; Glucose 163 mg/dL (65-110); Lipase 518 U/L (23-300); Magnesium 1.7 mg/dL (1.6-2.3); Potassium 3.9 mmol/L (3.4-5.0); Sodium 141 mmol/L (137-145)
--- NOTE | 2024-05-09 05:15 | ED.ABDPAIN ---
HPI - Abdominal Pain General Chief Complaint: Abdominal Pain Stated Complaint: kidney stone Time Seen by Provider: 05/09/24 04:37 History of Present Illness HPI narrative: Patient is a 68-year-old female who presents to the emergency department this morning complaining of left-sided flank pain radiating to her left groin. Patient states that she has a history of kidney stones and admits that this feels very similar. Pain started yesterday and has progressed to this morning. Denies any dysuria or difficulty breathing but admits that she did notice blood in her urine earlier today. Patient does see a urologist regularly, Dr. Connell. Denies any recent illness, fevers or chills. No additional symptoms or concerns at this time. Related Data Home Medications ?Medication ?Instructions ?Recorded ?Confirmed ?Last Taken ?Type aspirin 81 mg tablet,delayed 81 mg PO HS 12/30/22 04/24/24 01/01/24 History release omeprazole 20 mg capsule,delayed 20 mg PO DAILY 12/30/22 04/24/24 01/12/24 History release losartan 50 mg tablet 50 mg PO DAILY 07/07/23 04/24/24 01/12/24 History Allergies Allergy/AdvReac Type Severity Reaction Status Date / Time Penicillins Allergy Unknown Rash Verified 05/09/24 04:30 Review of Systems Review of Systems: All systems are reviewed and are negative unless stated otherwise in the HPI. COUNT INCLUDES THE [facility] Past Medical History Medical History Neuropathy due to chemotherapeutic drug History of left breast cancer Influenza Chest pressure Inflamed skin tag Actinic keratosis Changing skin lesion Wound of left breast Yeast infection Recurrent seroma of breast Left renal stone Ureteropelvic junction (UPJ) obstruction, left Renal colic on left side Acute bacterial sinusitis DM2 (diabetes mellitus, type 2) Essential (primary) hypertension Peptic ulcer Type 2 diabetes mellitus Obstructive sleep apnea Kidney stone Hypertension Gastroesophageal reflux disease Triple negative malignant neoplasm of breast Status post left breast lumpectomy with chemo radiation. Peripheral neuropathy due to chemotherapy Obesity Anemia Depression Arthritis Diverticulitis Hypercholesteremia Surgical History Surgical History S/P bilateral mastectomy History of partial mastectomy of left breast H/O breast surgery History of appendectomy History of tubal ligation History of lumpectomy of left breast History of lithotripsy x5. History of hysterectomy History of cholecystectomy History of tonsillectomy Family History Family History Father Heart disease Diabetes mellitus Acute myocardial infarction Mother Breast cancer Sibling Breast cancer Stomach cancer Social History Social History Social History: Surrogate medical decision maker: Darrick Swenson, spouse. Code status: Full code. Smoking status: Never smoker Second hand tobacco smoke exposure: No Alcohol intake: never Substance use: never Substance use type: does not use Do You Feel Safe in your Home?: Yes Lack of Transportation: No Lack of Food: Never True Current Housing: I Have Housing Concerned About Future Housing: No Difficulty Paying Gas/Electric Bills: No Difficulty Paying for Meds: Decline to Answer Currently Unemployed: No Education: Trade/Vocational Certificate Difficulty w/ Childcare or Family Care: No Living arrangements: with family Additional living arrangements comments: Lives with in [place] Occupation/Education: retired Additional occupation/education comments: Accounting. Spiritual care concerns: No Exam Narrative: General: Alert, awake, afebrile, in mild distress secondary to pain. HEENT: PERRL, no rhinorrhea, no post nasal drip, oropharynx clear. Neck: Trachea midline, no JVD, no lymphadenopathy. Cardiovascular: Regular rate and rhythm, no murmurs, rubs or gallops, no peripheral edema. Respiratory: Clear to auscultation bilaterally, no tachypnea, no wheezing, no rhonchi, no rubs, no respiratory distress. Abdomen: Soft, nontender, nondistended, no rebound, no guarding, no peritoneal signs. Musculoskeletal: No joint swelling or deformity, normal muscle tone. Skin: No rashes or petechia, no signs of infection. Psychiatric: Alert and oriented, normal behavior and judgment for situation. Neurological: Alert and oriented to person, place, and time. Follows all commands. No focal deficits, speech is clear and fluent. Course Vital Signs Vital signs: Vital Signs Temperature 97.3 F L 05/09/24 04:30 Pulse Rate 103 H 05/09/24 04:30 Respiratory Rate 17 05/09/24 04:30 Blood Pressure 153/78 H 05/09/24 04:30 Pulse Oximetry 100 05/09/24 04:30 Oxygen Delivery Room Air 05/09/24 04:30 Temperature 97.3 F L 05/09/24 04:30 Pulse Rate 90 05/09/24 06:48 Respiratory Rate 14 05/09/24 06:48 Blood Pressure 138/67 05/09/24 06:48 Pulse Oximetry 98 05/09/24 06:48 Oxygen Delivery Room Air 05/09/24 04:30 MDM - Abdominal Pain MDM Narrative Medical decision making narrative: The patient was evaluated by myself in the emergency department. History is obtained from patient who is an independent historian and physical exam was performed. External medical records were reviewed at this time. IV was established and pertinent tests were ordered. Patient was administered 15mg of IV Toradol for pain. Patient continues to have pain at this time she was administered 4 mg of IV morphine and 4 mg of IV Zofran. Laboratory results obtained revealing an elevated lipase of 518, otherwise unremarkable. Imaging studies obtained included CT abdomen and pelvis with IV contrast which was independently interpreted by me revealing a 6 mm proximal left ureteral stone with moderate left hydronephrosis, which is pending final radiology interpretation. Patient was informed of these findings at bedside, reassessed, states that her pain has improved, patient was given the option to attempt to pass the stone at or to be admitted and patient would like to try to pass at. Differential diagnosis considerations include kidney stones, pyelonephritis, diverticulitis, pancreatitis. Comorbidities impacting this visit include history of kidney stones. I have evaluated and discussed social determinants of health with the patient that could potentially impact subsequent diagnosis and treatment plans. On repeat assessment of the patient, reevaluation revealed that the patient is doing well and is in no acute distress. Patient symptoms have improved since she arrived to our emergency department. Repeat vital signs were all reviewed and noted to be stable. Differential diagnosis and treatment plan were discussed with the patient at bedside. Patient agrees with discussion and after shared medical decision making agrees with discharge. All questions were answered to the patient's satisfaction. Patient will follow up with Urology in 3-5 days. Script for ibuprofen, Flomax, Zofran and [place] were sent to patient's pharmacy to help her passed her kidney stone. Patient was provided with strict return precautions and instructed to return to the emergency department if any new or worsening symptoms develop. The patient was discharged in stable condition. Lab Data 05/09/24 04:48 05/09/24 04:48 Labs: Lab Results 05/09/24 05/09/24 Range/Units 04:48 05:21 WBC 7.7 (4.5-10.0) K/mm3 RBC 4.82 (4.2-5.4) M/mm3 Hgb 14.7 (12.0-15.0) g/dL Hct 44.5 (37.0-47.0) % MCV 92.3 (80-100) fl MCH 30.5 (26-34) pg MCHC 33.0 (32-36) g/dl RDW 12.7 (11.5-14.5) % Plt Count 240 (150-375) k/mm3 MPV 9.4 (7.4-10.4) fl Immature Gran % (Auto) 0.4 (0-0.5) % Neut % (Auto) 56.0 (45.5-73.1) % Lymph % (Auto) 31.3 (18.3-44.2) % [place] % (Auto) 9.6 H (2.6-8.5) % Eos % (Auto) 2.0 (0-4.4) % Baso % (Auto) 0.7 (0.2-1.2) % Lymph # (Auto) 2.41 (0.9-3.2) K/mm3 [place] # (Auto) 0.7 H (0.1-0.6) K/mm3 Eos # (Auto) 0.2 (0-0.3) K/mm3 Baso # (Auto) 0.1 (0.0-0.1) K/mm3 Abs Immat Gran (auto) 0.03 (0.00-0.031) K/mm3 Absolute Neuts (auto) 4.3 (1.3-6.7) K/mm3 Absolute Nucleated RBC 0.000 (0.0-0.012) K/mm3 Nucleated RBC % 0.0 (0.0-0.2) % Sodium 141 (137-145) mmol/L Potassium 3.9 (3.4-5.0) mmol/L Chloride 102 (98-107) mmol/L Carbon Dioxide 28 (22-30) mmol/L Anion Gap 11 (4-12) mmol/L BUN 15 (7-17) mg/dL Creatinine 0.64 L (0.7-1.0) mg/dL Estim Creat Clear Calc 68 ml/min Estimated GFR > 60 (59 - ) Glucose 163 H (65-110) mg/dL Calcium 9.5 (8.4-10.2) mg/dL Magnesium 1.7 (1.6-2.3) mg/dL Total Bilirubin 1.3 (0.2-1.3) mg/dL AST 26 (14-36) U/L ALT 26 (6-35) U/L Alkaline Phosphatase 97 (38-126) U/L Total Protein 8.0 (6.3-8.2) g/dL Albumin 4.7 (3.5-5.1) g/dL Lipase 518 H (23-300) U/L Urine Color Yellow (Yellow) Urine Appearance Cloudy H (Clear) Urine pH 5.0 (5.0-9.0) Ur Specific [place] 1.035 (1.001-1.035) Urine Protein Trace (Negative) mg/dL Urine Glucose (UA) 3+ H (Negative) mg/dL Urine Ketones Trace H (Negative) mg/dL Ur Blood (Man) 3+ H (Negative) Urine Nitrate Negative (Negative) Urine Bilirubin Negative (Negative) Urine Urobilinogen 1.0 (<2.0) mg/dL Leukocyte Esterase Rfl Trace H (Negative) [place]/UL Urine RBC >100 H (0-2) /hpf Urine WBC 21-50 H (0-3) /hpf Ur Squamous Epith Cells Occasional (Few) /hpf Urine Bacteria None seen /hpf Urine Casts 0-2 Imaging Data Radiologist's impression: ITS Impressions Abdomen/Pelvis CT 05/09/24 06:27 Impression: 6 mm proximal left ureteral stone with moderate left hydronephrosis. Additional nonobstructing left renal stone at the lower pole. Discharge Plan Discharge Clinical Impression: Kidney stone on left side, Hydronephrosis Patient Disposition: Home, Self-Care Condition: Improved Instructions: Antibiotic Form, Kidney Stones (ED), How to Strain Your Urine (ED) Additional Instructions: Please use the prescribed medications to help you passed 2 kidney stone. Follow-up with urologist within the next 3-5 days. Return to the emergency department if any new or worsening symptoms develop. Patient Language: Marshallese Prescriptions: New hydrocodone-acetaminophen 5-325 mg tablet 1 tablet PO Q8H PRN (Reason: pain) Qty: 14 0RF ondansetron 4 mg tablet,disintegrating 4 mg PO Q8H PRN (Reason: nausea and vomiting) Qty: 14 0RF tamsulosin [Flomax] 0.4 mg capsule 0.4 mg PO DAILY Qty: 14 0RF ibuprofen 400 mg tablet 400 mg PO TID PRN (Reason: pain) Qty: 20 0RF No Action (DME) blood-glucose meter Kit See Rx Instructions .Route Qty: 1 0RF Rx Instructions: As directed for blood glucose monitoring bid losartan 50 mg tablet 50 mg PO DAILY Patient Comments: QHS gabapentin 300 mg capsule See Rx Instructions PO BID Qty: 90 3RF Patient Comments: USUALLY TAKES 2 TAB AT HS Rx Instructions: 2 tablets BID semaglutide 2 mg/dose (8 mg/3 mL) pen injector 2 mg subcut WEEKLY Qty: 3 3RF Patient Comments: ON FRIDAYS aspirin 81 mg Tablet,Delayed Release (Dr/Ec) 81 mg PO HS omeprazole 20 mg Capsule,Delayed Release(Dr/Ec) 20 mg PO DAILY (DME) lancets [OneTouch Delica Plus Lancet] 33 gauge misc See Rx Instructions .Route Qty: 100 0RF Rx Instructions: Test glucose bid for diabetes (DME) OneTouch Verio test strips Strip See Rx Instructions .Route Qty: 100 0RF Rx Instructions: test glucose daily dapagliflozin propanediol 10 mg tablet 10 mg PO QAM Qty: 90 0RF duloxetine 30 mg capsule,delayed release(DR/EC) See Rx Instructions .ROUTE .COMPLEX Qty: 90 2RF Dose Instruction: TAKE 1 CAPSULE BY MOUTH EVERY DAY Patient Comments: 30 MG at hs Rx Instructions: TAKE 1 CAPSULE BY MOUTH EVERY DAY duloxetine 60 mg capsule,delayed release(DR/EC) See Rx Instructions .ROUTE .COMPLEX Qty: 90 2RF Dose Instruction: TAKE 1 CAPSULE BY MOUTH EVERY DAY Patient Comments: IN AM Rx Instructions: TAKE 1 CAPSULE BY MOUTH EVERY DAY rosuvastatin 20 mg tablet 20 mg PO DAILY Qty: 90 3RF trazodone 50 mg tablet 100 mg PO QHS Qty: 180 0RF Follow-up/Referrals: Tra Connell MD [Physician] - 3 Days Rinku Lester MD [Primary Care Provider] - Time of Disposition: 06:46
[2024-05-09 05:31] LABS: Add Urine Microscopic? YES; Appearance Urine Cloudy (Clear); Bacteria Urine None Seen /hpf; Bilirubin Urine Negative (Negative); Blood Urine 3+ (Negative); Color Urine Yellow (Yellow); Glucose Urine UA 3+ mg/dL (Negative); Ketones Urine Trace mg/dL (Negative); Leukocyte Esterase Ur Trace LEU/UL (Negative); Nitrate Urine Negative (Negative); Non Pathogenic Casts 0-2; Protein Urine Trace mg/dL (Negative); RBC Urine >100 /hpf (0-2); Specific Grav Ur 1.035 (1.001-1.035); Squamous Epithelial Cell Urine Occasional /hpf (Few); WBC Urine 21-50 /hpf (0-3)
--- OUTSIDE RECORDS SUMMARY | 2024-05-09 05:41 | XMS_ITS | Encounter Summary ---
Author Organization [facility] Address 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 Oncology and Hematology - [place] [address] [place] [address] Rich De Souza MD [address] [place] [address] documented as of this encounter Visit Diagnoses Not on filedocumented in this encounter Care Teams Claim Professional Relationship Specialty Start Date End Date Rinku Lester MD [address] [place] [address] PCP - General Family Practice 03/02/23 documented as of this encounter
--- OUTSIDE RECORDS SUMMARY | 2024-05-09 05:41 | XMS_ITS | CONTINUITY OF CARE DOCUMENT ---
Author Name cydney lamas Address Unknown Organization [facility] Address [address] [place] [address] Phone [phone] Care Team Providers Care Resistor Coater Name Role Phone [place] HAIRSTON, [place] Unavailable [phone] CESIA HAIRSTON, VAHE F Unavailable [phone] CESIA HAIRSTON, VAHE F Unavailable PROBLEMS Condition Status Date Provider Notes GERD active Tiffany Stahlschmidt HYPERCHOLESTEROLEMIA active Tiffany Stahlsch midt SLEEP APNEA active Tiffany Stahlschmidt HTN ESSENTIAL active Tiffany Stahlschmidt CHEST PAIN, NL CATH IN 2003 active ? [place] pereira MD SLEEP APNEA USES CPAP active [place] Robison ENCOUNTERS Date Type Provider Location Encounter Diagnosis - In-person encounter Office Visit [place] Vickers MD [place] [facility] - In-person encounter Office Visit [place] Vickers MD [place] [facility] CHEST PAIN, NL CATH IN 2004SLEEP APNEA USES CPAP - In-person encounter Office Visit [place] Vickers MD [place] [facility] VITAL SIGNS Date Observation Value Provider [...] PACO weight E&M 201 [lb_av] Skye Wang OR RESULTS Date Observation Value Provider Reference Range [...] L asif with family/friends E thnicity: [place] Vickesr MD drug use none [place] Vickers MD [...] Payer name Policy type / Coverage type [facility] republican ID COVENTRY- OPEN ACCESS/PPO Other [id number] TREATMENT PLAN Date Name Performer FOLLOW UP: [...] Findings: No EKG changes diagnostic for ischemia. [facility] (04/25/2002) C ardiac Cath: Normal coronary [...]
--- OUTSIDE RECORDS SUMMARY | 2024-05-09 05:41 | XMS_ITS | Continuity of Care Document ---
Author Organization [facility] Address [address] [place] [address] [address] [place] [address] Phone Care Team Providers Care Customer Trainer Name Role Phone Liz Smyth Unavailable Unavailable Advance Directives Directive Yes / No Effective Date File Name No Information Encounters Encounter Description Practice Location Reason(s) For Visit Diagnoses Date Provider Providers Copied on Encounter [facility], [address], [place], [place], [id number], [place] tel:[phone] [facility] No Information Mar-0 2-200 5 [address]. [address] , [address], [place], [place], [facility], [place]. tel:[phone] Referring Provider: Rakan Toribio, [address] [place] [address], [facility]. tel:[phone] Family History Family Member Type Diagnosis Age At Onset No Information Payers Payer name Insurance type Covered libertarian ID Authoriza tion(s) No Information Social History [...]
--- OUTSIDE RECORDS SUMMARY | 2024-05-09 05:41 | XMS_ITS | Clinical Summary ---
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 Gender Identity Not on file Sexual Orientation [...] cm (5' 2 ) 03/02/2023 10:12 AM PENOLOGY TEACHER Body Mass Index 31.46 03/02/2023 10:12 AM PENOLOGY TEACHER Plan of Treatment Upcoming Encounters Date Type Department Care Team (Late st Contact Info) Description 05/17/2024 1:15 PM CDT Office Visit [facility] Oncology and Hematology - [place] [address] [place] [address] Rich De Souza MD [address] [place] [address] Health Maintenance Due Date Last [...] MEDICARE PART A AND B Care Teams Radio News Anchor Relationship Specialty Start Date End Date Rinku Lester MD [address] [place] [address] PCP - General Family Practice 03/02/23
[2024-05-09] MEDS: MORPHINE SULFATE (*CRX) 4 MG/ML INJ IV PUSH (05:55)
[2024-05-09] MEDS: ONDANSETRON INJ 4 MG/2 ML VIAL IV PUSH (05:55)
[2024-05-09 06:48] VITALS: BP 138/67; PULSE 90; RESP 14; O2SAT 98
== END 2024-05-09 06:54 | disposition home or self-care (01) ==
PROVIDERS: Emergency Provider Emergency Medicine; PCP Family Medicine
DX: N13.2 Hydronephrosis with renal and ureteral calculous obstruction (principal); I10 Essential (primary) hypertension; E11.9 Type 2 diabetes mellitus without complications; E78.00 Pure hypercholesterolemia, unspecified; E66.9 Obesity, unspecified; Z68.28 Body mass index [BMI] 28.0-28.9, adult; K21.9 Gastro-esophageal reflux disease without esophagitis; M19.90 Unspecified osteoarthritis, unspecified site; G47.33 Obstructive sleep apnea (adult) (pediatric); F32.A Depression, unspecified; Z85.3 Personal history of malignant neoplasm of breast; Z87.11 Personal history of peptic ulcer disease; Z92.3 Personal history of irradiation; Z92.21 Personal history of antineoplastic chemotherapy; Z86.2 Personal history of diseases of the blood and blood-forming organs and certain disorders involving the immune mechanism; Z87.442 Personal history of urinary calculi; Z90.13 Acquired absence of bilateral breasts and nipples; Z90.710 Acquired absence of both cervix and uterus; Z90.49 Acquired absence of other specified parts of digestive tract; Z79.85 Long-term (current) use of injectable non-insulin antidiabetic drugs; Z79.899 Other long term (current) drug therapy; Z79.82 Long term (current) use of aspirin
CPT/HCPCS: 36415; 74176; 80053; 81001; 83690; 83735; 85025; 87086; 96361; 96374; 96375; 99284; J1885; J2270; J2405; J7030

== ENCOUNTER 2024-05-09 10:48 | Outpatient (CLI) | payer OTHER, SELFPAY ==
[2024-05-09 11:02] LABS: Basophils Absolute Auto 0.1 K/mm3 (0.0-0.1); Basophils Percent Auto 0.6 % (0.2-1.2); Eosinophils Absolute Auto 0.1 K/mm3 (0-0.3); Eosinophils Percent Auto 0.6 % (0-4.4); Hematocrit 41.2 % (37.0-47.0); Hemoglobin 13.5 g/dL (12.0-15.0); Immature Granulocyte Absolute 0.02 K/mm3 (0.00-0.031); Immature Granulocyte Percent A 0.2 % (0-0.5); Lymphocytes Absolute Auto 2.17 K/mm3 (0.9-3.2); Lymphocytes Percent Auto 25.3 % (18.3-44.2); Mean Corpuscular HGB Conc 32.8 g/dl (32-36); Mean Corpuscular Hemoglobin 30.4 pg (26-34); Mean Corpuscular Volume 92.8 fl (80-100); Mean Platelet Volume 9.3 fl (7.4-10.4); Monocytes Absolute Auto 0.6 K/mm3 (0.1-0.6); Monocytes Percent Auto 7.5 % (2.6-8.5); Neutrophils Absolute Auto 5.7 K/mm3 (1.3-6.7); Neutrophils Percent Auto 65.8 % (45.5-73.1); Platelet Count Result 241 k/mm3 (150-375); Red Blood Count 4.44 M/mm3 (4.2-5.4); Red Cell Distribution Width 12.5 % (11.5-14.5); White Blood Count 8.6 K/mm3 (4.5-10.0)
[2024-05-09 11:52] LABS: Alanine Aminotransferase 31 U/L (6-35); Albumin Level 4.1 g/dL (3.5-5.1); Alkaline Phosphatase 82 U/L (38-126); Anion Gap 8 mmol/L (4-12); Aspartate Amino Transferase 52 U/L (14-36); Bilirubin,Total 0.8 mg/dL (0.2-1.3); Blood Urea Nitrogen 17 mg/dL (7-17); Calcium 8.9 mg/dL (8.4-10.2); Carbon Dioxide 26 mmol/L (22-30); Chloride 106 mmol/L (98-107); Estimated Glomerular Filt Rate > 60; Glucose 143 mg/dL (65-110); Potassium 3.9 mmol/L (3.4-5.0); Sodium 140 mmol/L (137-145)
--- OUTSIDE RECORDS SUMMARY | 2024-05-09 12:26 | XMS_ITS | Continuity of Care Document ---
Author Organization [facility] Address [address] [place] [address] [address] [place] [address] Phone Care Team Providers Care Manager Payment Name Role Phone Liz Smyth Unavailable Unavailable Advance Directives Directive Yes / No Effective Date File Name No Information Encounters Encounter Description Practice Location Reason(s) For Visit Diagnoses Date Provider Providers Copied on Encounter [facility], [address], [place], [place], [id number], [place] tel:[phone] [facility] No Information Mar-0 2-200 5 [address]. [address] , [address], [place], [place], [facility], [place]. tel:[phone] Referring Provider: Rakan Toribio, [address] [place] [address], [facility]. tel:[phone] Family History Family Member Type Diagnosis Age [...]
--- OUTSIDE RECORDS SUMMARY | 2024-05-09 12:26 | XMS_ITS | Encounter Summary ---
Author Organization [facility] Address 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 Gender Identity Not on file Sexual Orientation Not on file documented as of this encounter Plan of Treatment Upcoming Encounters Date Type Department Care Team (Late st Contact Info) Description 05/17/2024 1:15 PM CDT Office Visit [facility] Oncology and Hematology - [place] [address] [place] [address] Rich De Souza MD [address] [place] [address] documented as of this encounter Visit Diagnoses Not on filedocumented in this encounter Care Teams Mason Helper Relationship Specialty Start Date End Date Rinku Lester MD [address] [place] [address] PCP - General Family Practice 03/02/23 documented as of this encounter
--- OUTSIDE RECORDS SUMMARY | 2024-05-09 12:26 | XMS_ITS | Clinical Summary ---
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 Gender Identity Not on file Sexual Orientation [...] cm (5' 2 ) 03/02/2023 10:12 AM GAME DESIGN INSTRUCTOR Body Mass Index 31.46 03/02/2023 10:12 AM GAME DESIGN INSTRUCTOR Plan of Treatment Upcoming Encounters Date Type Department Care Team (Late st Contact Info) Description 05/17/2024 1:15 PM CDT Office Visit [facility] Oncology and Hematology - [place] [address] [place] [address] Rich De Souza MD [address] [place] [address] Health Maintenance Due Date Last Done Comments Pre-Diabetes and Diabetes Screening 1955 DTAP/TDAP/TD VACCINES (1 - Tdap) 1973 Traditional Medicare (ACO) A nnual Wellness Visit 1974 COLORECTAL SCREENING 09/23/1999 Colorectal Cancer Screening [...] MEDICARE PART A AND B Care Teams Tube Room Cashier Relationship Specialty Start Date End Date Rinku Lester MD [address] [place] [address] PCP - General Family Practice 03/02/23
--- OUTSIDE RECORDS SUMMARY | 2024-05-09 12:26 | XMS_ITS | Clinical Summary ---
Author Organization [facility] [address] Address [address] [place] [address] Care Team Providers Care Front Maker Name Role Phone Rinku Lester MD Primary Care Provider + [phone] James Rodriguez MD PhD Unavailable + [phone] Ron Jacques MD Unavailable [phone] Raul Russo MD Unavailable [phone] Allergies Active Allergy Reactions Criticality Noted [...] (05/12/2022): Added automatically from request for surgery [id number] Prevention of chemotherapy-induced neutropenia 0 04/30/2020 Malignant neoplasm of left female breast 020 Overview (02/20/2020): Added automatically from request for surgery [id number] Malignant neoplasm of upper- outer quadrant of left breast in female, estrogen receptor negative 01/23/2020 Cancer Staging:Pathologic stage from 04/07/2020:Stage IIA(pT2, pN0(sn), cM0, G2, ER-, [place]-, HER2-) - Signed by James Rodriguez MD PhD on 04/07/2020 Assessment & Plan (04/01/2022 3:05 PM TECHNICAL INSPECTOR): Recurrent area of tenderness with induration, minimal [...] on file Legal Sex Female 11:48 AM TECHNICAL INSPECTOR Gender Identity Not on file Sexual Orientation [...] 12/26/2019, 12/26/2019 Medical Devices Implanted Type Area Cook Morning Device Identifier Shelf Expiration Date Model / Serial / Lot [employer] [id number] Powerport Mri Airguard 8fr 1 Lumen Attachable Catheter Latex Free - [id number] Implanted:Qty: 1 on 04/14/2020 by Ron Jacques MD at [facility] [employer] 02/27/2021 [id number] / / [id number] Procedures Procedure Name Priority Date/Time Associated Diagnosis Comments POCT LIPID PANEL Routine 09/14/2023 9:02 AM CDT Lipid screening EGFR Routine 05/07/2022 1:45 PM TECHNICAL INSPECTOR Malignant neoplasm of upper-outer quadrant of left breast in female, estrogen receptor negative (HCC) DIAGNOSTIC MAMMOGRAM BILATERAL W YADI Schedule Routine, Read Routine (OP Routine) 06/10/2021 9:02 AM CDT Malignant neoplasm of upper-outer quadrant of left breast in female, estrogen receptor negative (HCC) HEMOGLOBIN A1C Routine 04/23/2020 10:50 AM TECHNICAL INSPECTOR from Last 3 Months or Most Recently [...] - Final * eGFR (05/07/2022 1:45 PM TECHNICAL INSPECTOR) eGFR 98 mL/min/1. 73 m2 [facility] ([place]) Comment: Interpretive Data Reference Interval Normal >/= [...] last reviewed 2020. Blood 05/07/2022 1:45 PM TECHNICAL INSPECTOR 05/07/2022 2:43 PM TECHNICAL INSPECTOR us Dahlia Rodriguez NEGOTIATOR SALES LAB BLOOD ORDERABLES Final Result Performing Organization Address City/State/[facility] Co de Phone Number [facility] [address] [facility] Department of Laboratories [place], [place] [id number] * Diagnostic Mammogram Bilateral W Yadi (06/10/2021 [...] * (ABNORMAL) Hemoglobin A1c (04/23/2020 10:50 AM TECHNICAL INSPECTOR) Hgb A1C 7.3(H) 4.0 - 5.6 % [facility] ([place]) Estimated Average Glucose 163 mg/dL [facility] ([place]) Comment: The ADA recommends reporting an estimated Average Glucose (eAG) with all Hemoglobin A1c results using the equation derived from a study of 507 normal and diabetic adults. Minority populations were underrepresented and children were not included. (Diabetes Care 31:2940-9692, 2008). The eAG is not equivalent to a fasting glucose. Blood specimen (specimen) 04/23/2020 10:50 AM TECHNICAL INSPECTOR 04/23/2020 10:53 AM TECHNICAL INSPECTOR Aleksandar LUKE LAB BLOOD ORDERABLES Final R esult [facility] ([place]) [address] [facility] Department of Laboratories [place] [id number] from Last 3 Months or Most Recently Relevant to Health Maintenance Insurance MEDICARE AET SENIOR SUPPLEMENT MEDICARE [facility] [place] MEDICARE AETNA SENIOR SUPPLEMENT Care Teams Front Maker Relationship Specialty Start Date End Date Rinku Lester MD PCP - General Family Medicine 11/07/19 James Rodriguez MD PhD [address] [place] [id number] Radiation Oncologist Radiation Oncology 04/07/20 Ron Jacques MD [address] [place] [address] Referring Physician General Surgery 04/07/20 Raul Russo MD [address] [place] [address] Consulting Physician Hematology and Oncology 02/25/21
--- OUTSIDE RECORDS SUMMARY | 2024-05-09 12:26 | XMS_ITS ---
Author Organization [facility] [address] Address [address] [place] [address] Care Team Providers Care Activity Specialist Name Role Phone Rinku Lester MD Primary Care Provider + [phone] James Rodriguez MD PhD Unavailable + [phone] Ron Jacques MD Unavailable [phone] Raul Russo MD Unavailable [phone] Active Problems Problem Noted Date Diagnosed Date Seroma of breast 05/12/2022 Overview (05/12/2022): Added automatically from request for surgery [id number] Prevention of chemotherapy-induced neutropenia 0 04/30/2020 Malignant neoplasm of left female breast 020 Overview (02/20/2020): Added automatically from request for surgery [id number] Malignant neoplasm of upper- outer quadrant of left breast in female, estrogen receptor negative 01/23/2020 Cancer Staging:Pathologic stage from 04/07/2020:Stage IIA(pT2, pN0(sn), cM0, G2, ER-, [place]-, HER2-) - Signed by James Rodriguez MD PhD on 04/07/2020 Assessment & Plan (04/01/2022 3:05 PM INJURY/SAFETY HAZARD ASSESSMENT): Recurrent area of tenderness with induration, minimal [...]
--- OUTSIDE RECORDS SUMMARY | 2024-05-09 12:26 | XMS_ITS | Referral Summary ---
Author Organization [facility] [address] Address [address] [place] [address] Care Team Providers Care Peer Support Specialist Name Role Phone Rinku Lester MD Primary Care Provider + [phone] James Rodriguez MD PhD Unavailable + [phone] Ron Jacques MD Unavailable [phone] Raul Russo MD Unavailable [phone] Allergies Active Allergy Reactions Criticality Noted [...] (05/12/2022): Added automatically from request for surgery [id number] Prevention of chemotherapy-induced neutropenia 0 04/30/2020 Malignant neoplasm of left female breast 020 Overview (02/20/2020): Added automatically from request for surgery [id number] Malignant neoplasm of upper- outer quadrant of left breast in female, estrogen receptor negative 01/23/2020 Cancer Staging:Pathologic stage from 04/07/2020:Stage IIA(pT2, pN0(sn), cM0, G2, ER-, [place]-, HER2-) - Signed by James Rodriguez MD PhD on 04/07/2020 Assessment & Plan (04/01/2022 3:05 PM PCB DESIGNER): Recurrent area of tenderness with induration, minimal [...] on file Legal Sex Female 11:48 AM PCB DESIGNER Gender Identity Not on file Sexual [...] on file Medical Devices Implanted Type Area Steam Brush Operator Device Identifier Shelf Expiration Date Model / Serial / Lot [employer] [id number] Powerport Mri Airguard 8fr 1 Lumen Attachable Catheter Latex Free - [id number] Implanted:Qty: 1 on 04/14/2020 by Ron Jacques MD at [facility] [employer] 02/27/2021 [id number] / / [id number] Procedures Procedure Name Priority Date/Time Associated Diagnosis Comments POCT LIPID PANEL Routine 09/14/2023 9:02 AM CDT Lipid screening EGFR Routine 05/07/2022 1:45 PM PCB DESIGNER Malignant neoplasm of upper-outer quadrant of left breast in female, estrogen receptor negative (HCC) DIAGNOSTIC MAMMOGRAM BILATERAL W TOM Schedule Routine, Read Routine (OP Routine) 06/10/2021 9:02 AM CDT Malignant neoplasm of upper-outer quadrant of left breast in female, estrogen receptor negative (HCC) HEMOGLOBIN A1C Routine 04/23/2020 10:50 AM PCB DESIGNER from Last 3 Months or Most Recently [...] - Final * eGFR (05/07/2022 1:45 PM PCB DESIGNER) eGFR 98 mL/min/1. 73 m2 [facility] ([place]) Comment: Interpretive Data Reference Interval Normal >/= [...] last reviewed 2020. Blood 05/07/2022 1:45 PM PCB DESIGNER 05/07/2022 2:43 PM PCB DESIGNER us Dahlia Rodriguez CANDLEMAKER LAB BLOOD ORDERABLES Final Result [facility] ([place]) 1 [facility] Department [place] [address] * Diagnostic Mammogram Bilateral W [...] * (ABNORMAL) Hemoglobin A1c (04/23/2020 10:50 AM PCB DESIGNER) Hgb A1C 7.3(H) 4.0 - 5.6 % [facility] ([place]) Estimated Average Glucose 163 mg/dL [facility] ([place]) Comment: The ADA recommends reporting an estimated Average Glucose (eAG) with all Hemoglobin A1c results using the equation derived from a study of 507 normal and diabetic adults. Minority populations were underrepresented and children were not included. (Diabetes Care 31:4724-2719, 2008). The eAG is not equivalent to a fasting glucose. Blood specimen (specimen) 04/23/2020 10:50 AM PCB DESIGNER 04/23/2020 10:53 AM PCB DESIGNER Aleksandar LUKE LAB BLOOD ORDERABLES Final R esult [facility] ([place]) [facility] Department [place] [address] from Last 3 Months or Most Recently Relevant to Health Maintenance [facility] [place] MEDICARE AETNA SENIOR SUPPLEMENT Care Teams Peer Support Specialist Relationship Specialty Start Date End Date Rinku Lester MD PCP - General Family Medicine 11/07/19 James Rodriguez MD PhD [address] [place] [address] Radiation Oncologist Radiation Oncology 04/07/20 Ron Jacques MD [address] [place] [address] Referring Physician General Surgery 04/07/20 Raul Russo MD [address] [place] [id number] Consulting Physician Hematology and Oncology 02/25/21
[2024-05-11 01:29] LABS: CA 15-3 7 U/mL (<32)
== END 2024-05-09 10:49 | disposition home or self-care (01) ==
LOC: ANHLAB 10:49
PROVIDERS: PCP Family Medicine; Visit Provider Internal Medicine Hematology & Oncology
DX: C50.912 Malignant neoplasm of unspecified site of left female breast (principal); Z17.1 Estrogen receptor negative status [ER-]
CPT/HCPCS: 36415; 80053; 85025; 86300

== ENCOUNTER 2024-05-18 08:35 | Outpatient (CLI) | payer MEDICARE, SELFPAY ==
--- NOTE | ~2024-05-18 | XR_ITS ---
XR abdomen/kub 1V Ordering provider: Angelique Guillen, FORENSIC TOXICOLOGIST History: . CALCULUS OF KIDNEY . Comparison: None. FINDINGS: BOWEL: Nonobstructive bowel gas pattern. ORGANOMEGALY: None. SIGNIFICANT PATHOLOGIC CALCIFICATIONS: Calcification in the left kidney lower pole which is most like ly stone. Calcifications in the right paraspinal area and left side of the pelvis most likely benign. OTHER: No free air is seen under the diaphragm. Degenerative the spine. Bilateral sacroiliitis. IMPRESSION: NO ACUTE ABDOMINAL FINDINGS. Possible stone in the left kidney lower pole. Reviewed, dictated and finalized at location A.
== END 2024-05-18 08:36 | disposition home or self-care (01) ==
PROVIDERS: PCP Family Medicine; Visit Provider Nurse Practitioner Family
DX: N20.0 Calculus of kidney (principal)
CPT/HCPCS: 74018

== ENCOUNTER 2024-07-02 15:03 | Emergency (ER) | payer MEDICARE, SELFPAY ==
--- NOTE | ~2024-07-02 | CT_ITS ---
CLINICAL INDICATION: Right flank pain COMPARISON: 05/09/2024. TECHNIQUE: Multiple contiguous axial images of the abdomen and pelvis were performed without the admi nistration of intravenous contrast The dose-length product (DLP) was 182.04 mGy-cm. Automated exposure control and iterative reconstruction technique were employed. FINDINGS/OBSERVATIONS: Visualized lower thorax: Dependent atelectasis. The heart is of normal size, without pericardial effusion. Small hiatal hernia is present. Liver: The liver demonstrates homogeneous attenuation and is enlarged, measuring 20 cm in longitudinal dimen milly Gallbladder and biliary system: The gallbladder is surgically absent. Pancreas: Limited evaluation of the pancreas secondary to the lack of intravenous contrast. Spleen: Punctate calcifications identified within the splenic parenchyma, suggesting prior granulomat ous disease. The remainder of the spleen demonstrates otherwise homogeneous attenuation and is not enlarged. Kidneys: Redemonstration of a 4 mm calculus within the lower pole of the left kidney (decreased in size from 8 mm on the previous study), with a left-sided pararenal cyst. No left-sided hydronephrosis or hydroureter is present. No right-sided hydronephrosis or hydroureter is appreciated. Adrenal glands: Unremarkable. Gastrointestinal tract: Colonic diverticulosis without surrounding inflammatory change. Appendix: The appendix is not definitively visualized. However, no pericecal inflammatory change is identified suggest the presence of acute appendicitis. Vasculature: Unremarkable. Lymph nodes: Limited evaluation without intravenous contrast Pelvic structures: The bladder is only minimally distended, and otherwise unremarkable The uterus is either atrophic or surgically absent. Body wall and musculoskeletal: Age-appropriate degenerative disease within the lumbosacral spine. IMPRESSION: Hepatomegaly Findings suggesting prior granulomatous disease. No obstructive uropathy. Nonobstructing left renal calculus. Reviewed, dictated and finalized at location A.
[2024-07-02 15:08] VITALS: BP 115/68; PULSE 127; RESP 18; TEMP 36.5; O2SAT 100
--- NOTE | 2024-07-02 15:11 | ECG_ITS ---
Test Date: 2024-07-02 15:15:02 Measurements Intervals [place] Rate: 123 P: 0 DC: 0 QRS: -15 QRSD: 92 T: 72 QT: 294 QTc: 421 Interpretive Statements SINUS TACHYCARDIA POOR R-WAVE PROGRESSION BORDERLINE ECG No previous ECG available for comparison Electronically Signed On 07-02-2024 15:54:01 CDT by Alessandro Douglass M.D.
--- NOTE | 2024-07-02 15:16 | ED_ITS ---
HPI - Female Genitourinary General Chief complaint: Urogenital-Female Stated complaint: I have a kidney stone hematuria Time Seen by Provider: 07/02/24 15:16 Focused HPI: This is a 68 year old female that presents to the ER for kidney stone. Reports she has had pain since 5 this morning. Pain is in the right flank and radiates to the abdomen. Reports dysuria, hematuria. Denies fevers. GENERAL: Uncomfortable, well-nourished, and in no acute distress. HEAD: Normocephalic, atraumatic. CHEST: Clear to auscultation. ?No respiratory distress. HEART: Tachycardic, regular rhythm.? NEURO: ?Alert and oriented x3. Patient screened in triage and initial orders placed.? ?Additional care and disposition to be based upon?diagnostic testing and treatment. Related Data Home Medications ?Medication ?Instructions ?Recorded ?Confirmed ?Last Taken ?Type aspirin 81 mg tablet,delayed 81 mg PO HS 12/30/22 07/04/24 01/01/24 History release omeprazole 20 mg capsule,delayed 20 mg PO DAILY 12/30/22 07/04/24 01/12/24 History release losartan 50 mg tablet 50 mg PO DAILY 07/07/23 07/04/24 01/12/24 History Allergies Allergy/AdvReac Type Severity Reaction Status Date / Time Penicillins Allergy Unknown Rash Verified 07/04/24 07:37 Review of Systems 2 Review of Systems: All systems reviewed & are unremarkable except as noted in HPI and below PMFSH Past Medical History Medical History (Updated 07/04/24 @ 08:39 by FERNANDEZ Soni) Left renal stone Neuropathy due to chemotherapeutic drug History of left breast cancer Influenza Chest pressure Inflamed skin tag Actinic keratosis Changing skin lesion Wound of left breast Yeast infection Recurrent seroma of breast Ureteropelvic junction (UPJ) obstruction, left Renal colic on left side Acute bacterial sinusitis DM2 (diabetes mellitus, type 2) Essential (primary) hypertension Peptic ulcer Type 2 diabetes mellitus Obstructive sleep apnea Kidney stone Hypertension Gastroesophageal reflux disease Triple negative malignant neoplasm of breast Status post left breast lumpectomy with chemo radiation. Peripheral neuropathy due to chemotherapy Obesity Anemia Depression Arthritis Diverticulitis Hypercholesteremia Surgical History Surgical History S/P bilateral mastectomy History of partial mastectomy of left breast H/O breast surgery History of appendectomy History of tubal ligation History of lumpectomy of left breast History of lithotripsy x5. History of hysterectomy History of cholecystectomy History of tonsillectomy Family History Family History Father Heart disease Diabetes mellitus Acute myocardial infarction Mother Breast cancer Sibling Breast cancer Stomach cancer Social History Social History Social History: Surrogate medical decision maker: Darrick Swenson, spouse. Code status: Full code. Smoking status: Never smoker Second hand tobacco smoke exposure: No Alcohol intake: never Substance use: never Substance use type: does not use Do You Feel Safe in your Home?: Yes Lack of Transportation: No Lack of Food: Never True Current Housing: I Have Housing Concerned About Future Housing: No Difficulty Paying Gas/Electric Bills: No Difficulty Paying for Meds: Decline to Answer Currently Unemployed: No Education: Trade/Vocational Certificate Difficulty w/ Childcare or Family Care: No Living arrangements: with family Additional living arrangements comments: Occupation/Education: retired Additional occupation/education comments: Accounting. Spiritual care concerns: No Course Vital Signs Vital signs: Vital Signs Temperature 97.7 F 07/02/24 15:08 Pulse Rate 127 H 07/02/24 15:08 Respiratory Rate 18 07/02/24 15:08 Blood Pressure 115/68 07/02/24 15:08 Pulse Oximetry 100 07/02/24 15:08 Oxygen Delivery Room Air 07/02/24 15:08 Temperature 97.7 F 07/02/24 15:08 Pulse Rate 99 07/02/24 20:15 Respiratory Rate 14 07/02/24 20:15 Blood Pressure 146/75 H 07/02/24 20:15 Pulse Oximetry 100 07/02/24 20:15 Oxygen Delivery Room Air 07/02/24 15:08 MDM - Female Genitourinary Lab Data 07/02/24 15:23 07/02/24 15:23 Labs: Lab Results 07/02/24 Range/Units 15:23 WBC 7.3 (4.5-10.0) K/mm3 RBC 5.00 (4.2-5.4) M/mm3 Hgb 14.8 (12.0-15.0) g/dL Hct 46.8 (37.0-47.0) % MCV 93.6 (80-100) fl MCH 29.6 (26-34) pg MCHC 31.6 L (32-36) g/dl RDW 12.7 (11.5-14.5) % Plt Count 273 (150-375) k/mm3 MPV 9.0 (7.4-10.4) fl Immature Gran % (Auto) 0.3 (0-0.5) % Neut % (Auto) 54.9 (45.5-73.1) % Lymph % (Auto) 28.4 (18.3-44.2) % [place] % (Auto) 14.1 H (2.6-8.5) % Eos % (Auto) 1.5 (0-4.4) % Baso % (Auto) 0.8 (0.2-1.2) % Lymph # (Auto) 2.06 (0.9-3.2) K/mm3 [place] # (Auto) 1.0 H (0.1-0.6) K/mm3 Eos # (Auto) 0.1 (0-0.3) K/mm3 Baso # (Auto) 0.1 (0.0-0.1) K/mm3 Abs Immat Gran (auto) 0.02 (0.00-0.031) K/mm3 Absolute Neuts (auto) 4.0 (1.3-6.7) K/mm3 Absolute Nucleated RBC 0.000 (0.0-0.012) K/mm3 Nucleated RBC % 0.0 (0.0-0.2) % Sodium 137 (137-145) mmol/L Potassium 3.9 (3.4-5.0) mmol/L Chloride 98 (98-107) mmol/L Carbon Dioxide 29 (22-30) mmol/L Anion Gap 10 (4-12) mmol/L BUN 15 (7-17) mg/dL Creatinine 0.67 L (0.7-1.0) mg/dL Estim Creat Clear Calc 65 ml/min Estimated GFR > 60 (59 - ) Glucose 101 (65-110) mg/dL Calcium 9.1 (8.4-10.2) mg/dL Total Bilirubin 0.8 (0.2-1.3) mg/dL AST 31 (14-36) U/L ALT 31 (6-35) U/L Alkaline Phosphatase 94 (38-126) U/L Total Protein 8.0 (6.3-8.2) g/dL Albumin 4.7 (3.5-5.1) g/dL Lipase 267 (23-300) U/L Urine Color Light red H (Yellow) Urine Appearance Cloudy H (Clear) Urine pH 5.5 (5.0-9.0) Ur Specific [place] 1.025 (1.001-1.035) Urine Protein 2+ H (Negative) mg/dL Urine Glucose (UA) 3+ H (Negative) mg/dL Urine Ketones Trace H (Negative) mg/dL Ur Blood (Man) 3+ H (Negative) Urine Nitrate Negative (Negative) Urine Bilirubin Negative (Negative) Urine Urobilinogen 1.0 (<2.0) mg/dL Add Ur Microanalysis Reviewed Leukocyte Esterase Rfl Negative (Negative) [place]/UL Urine RBC >100 H (0-2) /hpf Urine WBC 21-50 H (0-3) /hpf Ur Squamous Epith Cells Few (Few) /hpf Urine Bacteria Rare /hpf Urine Casts 0-2 Imaging Data Radiologist's impression: ITS Impressions Abdomen/Pelvis CT 07/02/24 20:26 IMPRESSION: Hepatomegaly Findings suggesting prior granulomatous disease. No obstructive uropathy. Nonobstructing left renal calculus. Critical Care Time Critical Care Time Critical Care Time: No Discharge Plan Discharge Clinical Impression: Hepatomegaly, Left nephrolithiasis, Acute pyelonephritis Patient Disposition: Home Condition: Stable Instructions: Antibiotic Form, Kidney Infection (ED), Hematuria (ED) Additional Instructions: Your evaluated in the emergency department for right flank pain and concern for kidney stone. Your found have a stone in the left kidney but there are no stones in the right kidney or ureter. You were found to have blood in your urine and some white blood cells. Your pain is either secondary to a passed kidney stone or a kidney infection. Please take antibiotics as directed. Drink plenty of fluids and follow-up closely with your urologist. You were also found to have an enlarged liver, please follow-up with her primary care provider regarding this. Return to the emergency department if you develop a fever of 100.4 or greater, your unable to tolerate food or fluids, you develop worsening pain or other concerning symptoms. Patient Language: Citizen Of [place] Prescriptions: New sulfamethoxazole-trimethoprim 800-160 mg tablet 1 tablet PO Q12H 10 Days Qty: 20 0RF No Action (DME) blood-glucose meter Kit See Rx Instructions .Route Qty: 1 0RF Rx Instructions: As directed for blood glucose monitoring bid losartan 50 mg tablet 50 mg PO DAILY Patient Comments: QHS semaglutide 2 mg/dose (8 mg/3 mL) pen injector 2 mg subcut WEEKLY Qty: 3 3RF Patient Comments: ON FRIDAYS aspirin 81 mg Tablet,Delayed Release (Dr/Ec) 81 mg PO HS omeprazole 20 mg Capsule,Delayed Release(Dr/Ec) 20 mg PO DAILY (DME) lancets [OneTouch Delica Plus Lancet] 33 gauge misc See Rx Instructions .Route Qty: 100 0RF Rx Instructions: Test glucose bid for diabetes (DME) OneTouch Verio test strips Strip See Rx Instructions .Route Qty: 100 0RF Rx Instructions: test glucose daily duloxetine 30 mg capsule,delayed release(DR/EC) See Rx Instructions .ROUTE .COMPLEX Qty: 90 2RF Dose Instruction: TAKE 1 CAPSULE BY MOUTH EVERY DAY Patient Comments: 30 MG at hs Rx Instructions: TAKE 1 CAPSULE BY MOUTH EVERY DAY duloxetine 60 mg capsule,delayed release(DR/EC) See Rx Instructions .ROUTE .COMPLEX Qty: 90 2RF Dose Instruction: TAKE 1 CAPSULE BY MOUTH EVERY DAY Patient Comments: IN AM Rx Instructions: TAKE 1 CAPSULE BY MOUTH EVERY DAY rosuvastatin 20 mg tablet 20 mg PO DAILY Qty: 90 3RF trazodone 50 mg tablet 100 mg PO QHS Qty: 180 0RF dapagliflozin propanediol [Farxiga] 10 mg tablet 10 mg PO QAM Qty: 90 0RF gabapentin 300 mg capsule 600 mg PO BID Qty: 90 3RF Patient Comments: USUALLY TAKES 2 TAB AT HS Follow-up/Referrals: Tra Connell MD [Physician] - Rinku Lester MD [Primary Care Provider] -
[2024-07-02 15:31] LABS: Basophils Absolute Auto 0.1 K/mm3 (0.0-0.1); Basophils Percent Auto 0.8 % (0.2-1.2); Eosinophils Absolute Auto 0.1 K/mm3 (0-0.3); Eosinophils Percent Auto 1.5 % (0-4.4); Hematocrit 46.8 % (37.0-47.0); Hemoglobin 14.8 g/dL (12.0-15.0); Immature Granulocyte Absolute 0.02 K/mm3 (0.00-0.031); Immature Granulocyte Percent A 0.3 % (0-0.5); Lymphocytes Absolute Auto 2.06 K/mm3 (0.9-3.2); Lymphocytes Percent Auto 28.4 % (18.3-44.2); Mean Corpuscular HGB Conc 31.6 g/dl (32-36); Mean Corpuscular Hemoglobin 29.6 pg (26-34); Mean Corpuscular Volume 93.6 fl (80-100); Monocytes Percent Auto 14.1 % (2.6-8.5); Neutrophils Percent Auto 54.9 % (45.5-73.1); Platelet Count Result 273 k/mm3 (150-375); Red Cell Distribution Width 12.7 % (11.5-14.5); White Blood Count 7.3 K/mm3 (4.5-10.0)
[2024-07-02 15:38] LABS: Bacteria Urine Rare /hpf; Need Manual Microscopic Reviewed; Non Pathogenic Casts 0-2; RBC Urine >100 /hpf (0-2); Squamous Epithelial Cell Urine Few /hpf (Few); WBC Urine 21-50 /hpf (0-3)
--- OUTSIDE RECORDS SUMMARY | 2024-07-02 15:41 | XMS_ITS | Clinical Summary ---
Author Organization [facility] [address] Address [address] [place] [address] Care Team Providers Care Developer Trading Systems Name Role Phone Rinku Lester MD Primary Care Provider + [phone] James Rodriguez MD PhD Unavailable + [phone] Ron Jacques MD Unavailable [phone] Raul Russo MD Unavailable [phone] Allergies Active Allergy Reactions Criticality Noted [...] (05/12/2022): Added automatically from request for surgery [id number] Prevention of chemotherapy-induced neutropenia 0 04/30/2020 Malignant neoplasm of left female breast 020 Overview (02/20/2020): Added automatically from request for surgery [id number] Malignant neoplasm of upper- outer quadrant of left breast in female, estrogen receptor negative 01/23/2020 Cancer Staging:Pathologic stage from 04/07/2020:Stage IIA(pT2, pN0(sn), cM0, G2, ER-, NV-, HER2-) - Signed by James Rordiguez MD PhD on 04/07/2020 Assessment & Plan (04/01/2022 3:05 PM STADIUM MANAGER): Recurrent area of tenderness with induration, minimal [...] on file Legal Sex Female 11:48 AM STADIUM MANAGER Gender Identity Not on file Sexual Orientation [...] 12/26/2019, 12/26/2019 Medical Devices Implanted Type Area Tipple Greaser Device Identifier Shelf Expiration Date Model / Serial / Lot [employer] [id number] Powerport Mri Airguard 8fr 1 Lumen Attachable Catheter Latex Free - [id number] Implanted:Qty: 1 on 04/14/2020 by Ron Jacques MD at [facility] [employer] 02/27/2021 [id number] / / [id number] Procedures Procedure Name Priority Date/Time Associated Diagnosis Comments POCT LIPID PANEL Routine 09/14/2023 9:02 AM CDT Lipid screening EGFR Routine 05/07/2022 1:45 PM STADIUM MANAGER Malignant neoplasm of upper-outer quadrant of left breast in female, estrogen receptor negative (HCC) DIAGNOSTIC MAMMOGRAM BILATERAL W YADI Schedule Routine, Read Routine (OP Routine) 06/10/2021 9:02 AM CDT Malignant neoplasm of upper-outer quadrant of left breast in female, estrogen receptor negative (HCC) HEMOGLOBIN A1C Routine 04/23/2020 10:50 AM STADIUM MANAGER from Last 3 Months or Most Recently [...] - Final * eGFR (05/07/2022 1:45 PM STADIUM MANAGER) eGFR 98 mL/min/1. 73 m2 [facility] ([place]) Comment: Interpretive Data Reference Interval Normal >/= [...] last reviewed 2020. Blood 05/07/2022 1:45 PM STADIUM MANAGER 05/07/2022 2:43 PM STADIUM MANAGER us Dahlia Rodriguez CHILD CENTER ASSISTANT LAB BLOOD ORDERABLES Final Result Performing Organization Address City/State/[facility] Co de Phone Number [facility] 1 [facility] Department of Laboratories [place], [place] [id number] * Diagnostic Mammogram Bilateral W Yadi (06/10/2021 [...] * (ABNORMAL) Hemoglobin A1c (04/23/2020 10:50 AM STADIUM MANAGER) Hgb A1C 7.3(H) 4.0 - 5.6 % [facility] ([place]) Estimated Average Glucose 163 mg/dL [facility] ([place]) Comment: The ADA recommends reporting an estimated Average Glucose (eAG) with all Hemoglobin A1c results using the equation derived from a study of 507 normal and diabetic adults. Minority populations were underrepresented and children were not included. (Diabetes Care 31:9784-7229, 2008). The eAG is not equivalent to a fasting glucose. Blood specimen (specimen) 04/23/2020 10:50 AM STADIUM MANAGER 04/23/2020 10:53 AM STADIUM MANAGER Aleksandar LUKE LAB BLOOD ORDERABLES Final R esult [facility] ([place]) 1 [facility] Department of Laboratories [place] [id number] from Last 3 Months or Most Recently Relevant to Health Maintenance Insurance MEDICARE AET SENIOR SUPPLEMENT MEDICARE [facility] MEDICARE AETNA SENIOR SUPPLEMENT Care Teams Developer Trading Systems Relationship Specialty Start Date End Date Rinku Lester MD PCP - General Family Medicine 11/07/19 James Rodriguez MD PhD [address] [place] [address] Radiation Oncologist Radiation Oncology 04/07/20 Ron Jacques MD [address] [place] [address] Referring Physician General Surgery 04/07/20 Raul Russo MD [address] [place] [address] Consulting Physician Hematology and Oncology 02/25/21
--- OUTSIDE RECORDS SUMMARY | 2024-07-02 15:41 | XMS_ITS ---
Author Organization [facility] [address] Address [address] [place] [address] Care Team Providers Care Assembler Billiard Table Name Role Phone Rinku Lester MD Primary Care Provider + [phone] James Rodriguez MD PhD Unavailable + [phone] Ron Jacques MD Unavailable [phone] Raul Russo MD Unavailable [phone] Active Problems Problem Noted Date Diagnosed Date Seroma of breast 05/12/2022 Overview (05/12/2022): Added automatically from request for surgery [id number] Prevention of chemotherapy-induced neutropenia 0 04/30/2020 Malignant neoplasm of left female breast 020 Overview (02/20/2020): Added automatically from request for surgery [id number] Malignant neoplasm of upper- outer quadrant of left breast in female, estrogen receptor negative 01/23/2020 Cancer Staging:Pathologic stage from 04/07/2020:Stage IIA(pT2, pN0(sn), cM0, G2, ER-, VT-, HER2-) - Signed by James Rodriguez MD PhD on 04/07/2020 Assessment & Plan (04/01/2022 3:05 PM GROUND INSTRUCTOR BASIC): Recurrent area of tenderness with induration, minimal [...]
--- OUTSIDE RECORDS SUMMARY | 2024-07-02 15:41 | XMS_ITS | Continuity of Care Document ---
Author Organization [facility] Address [address] [place] [address] [address] [place] [address] Phone Care Team Providers Care Tile Finisher Name Role Phone Liz Smyth Unavailable Unavailable Advance Directives Directive Yes / No Effective Date File Name No Information Encounters Encounter Description Practice Location Reason(s) For Visit Diagnoses Date Provider Providers Copied on Encounter [facility], [address], [place], [place], [id number], [place] tel:[phone] [facility] No Information Mar-0 2-200 [address] , [address], [place], [place], [facility], [place]. tel:[phone] Referring Provider: Rakan Toribio, [address] [place] [address], [facility]. tel:[phone] Family History Family Member Type Diagnosis Age At Onset No Information Payers Payer name Insurance type Covered constitution party ID Authoriza tion(s) No Information Social [...]
--- OUTSIDE RECORDS SUMMARY | 2024-07-02 15:41 | XMS_ITS | Clinical Summary ---
Author Organization [facility] Karol Avilakirk Address [address] [place] [address] Care Team Providers Care Biblical Studies Professor Name Role Phone Rinku Lester MD Primary Care Provider [phone] Allergies Active Allergy Reactions Criticality Noted Date [...] Encounters Date Type Department Care Team Description 05/17/2024 1:15 PM CDT Office Visit [facility] Oncology and Hematology - [place] [address] [place] [address] Rich De Souza MD Malignant neoplasm of left breast in female, estrogen receptor negative, unspecified site of breast (CMS/HCC) (Primary Dx) 05/16/2024 External Device Data STL ABSTRACTION Provider, Abstract 05/14/2024 Orders Only [facility] Oncology and Hematology - [place] [address] [place] [address] Rich De Souza MD 05/10/2024 Orders Only [facility] Oncology and Hematology - [place] [address] [place] [address] Rich De Souza MD 05/05/2024 External Device Data STL ABSTRACTION Provider, [...] on file Legal Sex Female 4:11 PM BANKRUPTCY MANAGER Gender Identity Not on file Sexual Orientation Not on file Last Filed Vital Signs Vital Sign Reading Time Taken Comments Blood Pressure 122/75 05/17/2024 12:58 PM CDT Pulse 109 05/17/2024 12:58 PM CDT Temperature 36.7 C (98.1 F) 05/17/2024 12:58 PM CDT Respiratory Rate 15 05/17/2024 12:5 8 PM CDT Oxygen Saturation 96% 05/17/2024 12: 58 PM CDT Inhaled Oxygen Concentration - - Weight 72.5 kg (159 lb 12.8 oz) 025 12:58 PM CDT Height 157.5 cm (5' 2 ) 03/02/2023 10:1 2 AM BANKRUPTCY MANAGER Body Mass Index 29.23 03/02/2023 10:12 AM BANKRUPTCY MANAGER Plan of Treatment Upcoming Encounters Date Type Department Care Team (Late st Contact Info) Description 11/20/2024 3:30 PM CDT Office Visit [facility] Oncology and Hematology - [place] [address] [facility] [address] [place] [address] Rich De Souza MD [address] [place] [address] Health Maintenance Due Date Last [...] PPSV23) 02/20/2020 12/26/2019 BREAST CANCER SCREENING 06/10/2022 06/11/19 22, 06/10/2021, 12/13/2019, Additional history exists INFLUENZA VACCINE (#1) 2023 , 12/26/2019, 01/26/2019 COVID-19 Vaccine (5 - 2023-2 5 season) 2023 02/24/2021, 2020, 08/12/2020, Additional history exists Procedures Procedure Name Priority Date/Time Associated Diagnosis Comments CANCER ANTIGEN 15-3 Routine 05/09/2024 3 :53 PM CDT COMPREHENSIVE METABOLIC PANEL Routine 05/09/2024 2:05 PM CDT from Last 3 Months Results * CANCER ANTIGEN 15-3 (05/09/2024 3:53 PM CDT) Blood Rich De Souza MD CHEMISTRY ORDERABLES Final Resu lt * COMPREHENSIVE METABOLIC PANEL (05/09/2024 2:05 PM CDT) Blood Rich De Souza MD CHEMISTRY ORDERABLES Final Resu lt from Last 3 Months Insurance [facility] [id number] Care Teams Biblical Studies Professor Relationship Specialty Start Date End Date Rinku Lester MD [address] [place] [id number] PCP - General Family Practice 03/02/23
--- OUTSIDE RECORDS SUMMARY | 2024-07-02 15:41 | XMS_ITS | Referral Summary ---
Author Organization [facility] [address] Address [address] [place] [address] Care Team Providers Care Specimen Processor Name Role Phone Rinku Lester MD Primary Care Provider + [phone] James Rodriguez MD PhD Unavailable + [phone] Ron Jacques MD Unavailable [phone] Raul Russo MD Unavailable [phone] Allergies Active Allergy Reactions Criticality Noted [...] (05/12/2022): Added automatically from request for surgery [id number] Prevention of chemotherapy-induced neutropenia 0 04/30/2020 Malignant neoplasm of left female breast 020 Overview (02/20/2020): Added automatically from request for surgery [id number] Malignant neoplasm of upper- outer quadrant of left breast in female, estrogen receptor negative 01/23/2020 Cancer Staging:Pathologic stage from 04/07/2020:Stage IIA(pT2, pN0(sn), cM0, G2, ER-, ID-, HER2-) - Signed by James Rodriguez MD PhD on 04/07/2020 Assessment & Plan (04/01/2022 3:05 PM DISTRIBUTION TRANSFORMER ASSEMBLER): Recurrent area of tenderness with induration, minimal [...] on file Legal Sex Female 11:48 AM DISTRIBUTION TRANSFORMER ASSEMBLER Gender Identity Not on file Sexual Orientation [...] on file Medical Devices Implanted Type Area Electronic Lab Technician Device Identifier Shelf Expiration Date Model / Serial / Lot [employer] [id number] Powerport Mri Airguard 8fr 1 Lumen Attachable Catheter Latex Free - [id number] Implanted:Qty: 1 on 04/14/2020 by Ron Jacques MD at [facility] [employer] 02/27/2021 [id number] / / [id number] Procedures Procedure Name Priority Date/Time Associated Diagnosis Comments POCT LIPID PANEL Routine 09/14/2023 9:02 AM CDT Lipid screening EGFR Routine 05/07/2022 1:45 PM DISTRIBUTION TRANSFORMER ASSEMBLER Malignant neoplasm of upper-outer quadrant of left breast in female, estrogen receptor negative (HCC) DIAGNOSTIC MAMMOGRAM BILATERAL W TOM Schedule Routine, Read Routine (OP Routine) 06/10/2021 9:02 AM CDT Malignant neoplasm of upper-outer quadrant of left breast in female, estrogen receptor negative (HCC) HEMOGLOBIN A1C Routine 04/23/2020 10:50 AM DISTRIBUTION TRANSFORMER ASSEMBLER from Last 3 Months or Most Recently [...] - Final * eGFR (05/07/2022 1:45 PM DISTRIBUTION TRANSFORMER ASSEMBLER) eGFR 98 mL/min/1. 73 m2 [facility] ([place]) Comment: Interpretive Data Reference Interval Normal >/= [...] last reviewed 2020. Blood 05/07/2022 1:45 PM DISTRIBUTION TRANSFORMER ASSEMBLER 05/07/2022 2:43 PM DISTRIBUTION TRANSFORMER ASSEMBLER us Dahlia Rodriguez HOG STOMACH PREPARER LAB BLOOD ORDERABLES Final Result [facility] ([place]) 1 [facility] Department [place] [address] * Diagnostic Mammogram Bilateral W [...] * (ABNORMAL) Hemoglobin A1c (04/23/2020 10:50 AM DISTRIBUTION TRANSFORMER ASSEMBLER) Hgb A1C 7.3(H) 4.0 - 5.6 % [facility] ([place]) Estimated Average Glucose 163 mg/dL [facility] ([place]) Comment: The ADA recommends reporting an estimated Average Glucose (eAG) with all Hemoglobin A1c results using the equation derived from a study of 507 normal and diabetic adults. Minority populations were underrepresented and children were not included. (Diabetes Care 31:2848-4706, 2008). The eAG is not equivalent to a fasting glucose. Blood specimen (specimen) 04/23/2020 10:50 AM DISTRIBUTION TRANSFORMER ASSEMBLER 04/23/2020 10:53 AM DISTRIBUTION TRANSFORMER ASSEMBLER Aleksandar LUKE LAB BLOOD ORDERABLES Final R esult [facility] ([place]) 1 [facility] Department [place] [address] from Last 3 Months or Most Recently Relevant to Health Maintenance [facility] [employer] INS [place] MEDICARE AETNA SENIOR SUPPLEMENT Care Teams Specimen Processor Relationship Specialty Start Date End Date Rinku Lester MD PCP - General Family Medicine 11/07/19 James Rodriguez MD PhD [address] [place] [address] Radiation Oncologist Radiation Oncology 04/07/20 Ron Jacques MD [address] [place] [address] Referring Physician General Surgery 04/07/20 Raul Russo MD [address] [place] [address] Consulting Physician Hematology and Oncology 02/25/21
--- OUTSIDE RECORDS SUMMARY | 2024-07-02 15:41 | XMS_ITS | CONTINUITY OF CARE DOCUMENT ---
Author Name cydney lamas Address Unknown Organization [facility] Address [address] [place] [address] Phone [phone] Care Team Providers Care Color Paste Mixer Name Role Phone [place]o HAIRSTON, [place] Unavailable CESIA HAIRSTON, VAHE F Unavailable CESIA HAIRSTON, [...] In-person encounter Office Visit [place] Vickers MD [place] [facility] - In-person encounter Office Visit [place] Vickers MD [place] [facility] CHEST PAIN, NL CATH IN 2004SLEEP APNEA USES CPAP - In-person encounter Office Visit [place] Vickers MD [place] [facility] VITAL SIGNS Date Observation Value Provider [...] name Policy type / Coverage type [facility] alliance party ID COVENTRY- OPEN ACCESS/PPO Other [id number] TREATMENT PLAN Date Name Performer FOLLOW UP: [...] Findings: No EKG changes diagnostic for ischemia. [facility] (04/25/2002) C ardiac Cath: Normal coronary [...]
[2024-07-02 15:42] LABS: Alanine Aminotransferase 31 U/L (6-35); Albumin Level 4.7 g/dL (3.5-5.1); Alkaline Phosphatase 94 U/L (38-126); Anion Gap 10 mmol/L (4-12); Aspartate Amino Transferase 31 U/L (14-36); Bilirubin,Total 0.8 mg/dL (0.2-1.3); Blood Urea Nitrogen 15 mg/dL (7-17); Calcium 9.1 mg/dL (8.4-10.2); Carbon Dioxide 29 mmol/L (22-30); Chloride 98 mmol/L (98-107); Estimated CRCL calculation 65 ml/min; Estimated Glomerular Filt Rate > 60; Glucose 101 mg/dL (65-110); Lipase 267 U/L (23-300); Potassium 3.9 mmol/L (3.4-5.0); Sodium 137 mmol/L (137-145)
[2024-07-02 16:15] LABS: Add Urine Microscopic? YES
[2024-07-02 16:16] LABS: Appearance Urine Cloudy (Clear); Color Urine Light Red (Yellow); Glucose Urine UA 3+ mg/dL (Negative); Ketones Urine Trace mg/dL (Negative); Protein Urine 2+ mg/dL (Negative); Specific Grav Ur 1.025 (1.001-1.035); pH Urine 5.5 (5.0-9.0)
[2024-07-02 16:17] LABS: Bilirubin Urine Negative (Negative); Blood Urine 3+ (Negative); Leukocyte Esterase Ur Negative LEU/UL (Negative); Nitrate Urine Negative (Negative)
--- OUTSIDE RECORDS SUMMARY | 2024-07-02 16:40 | XMS_ITS | Continuity of Care Document ---
Author Organization [facility] Address [address] [place] [address] [address] [place] [address] Phone Care Team Providers Care Seedling Puller Name Role Phone Liz Smyth Unavailable Unavailable Advance Directives Directive Yes / No Effective Date File Name No Information Encounters Encounter Description Practice Location Reason(s) For Visit Diagnoses Date Provider Providers Copied on Encounter [facility], [address], [place], [place], [id number], [place] tel:[phone] [facility] No Information Mar-0 2-200 [address] , [address], [place], [place], [facility], [place]. tel:[phone] Referring Provider: Rakan Toribio, [address] [place] [address], [facility]. tel:[phone] Family History Family Member Type Diagnosis Age [...]
--- OUTSIDE RECORDS SUMMARY | 2024-07-02 16:40 | XMS_ITS | CONTINUITY OF CARE DOCUMENT ---
Author Name cydney lamas Address Unknown Organization [facility] Address [address] [place] [address] Phone [phone] Care Team Providers Care Rate Quoting Operator Name Role Phone [place] HAIRSTON, [place] Unavailable CESIA HAIRSTON, VAHE F Unavailable CESIA HAIRSTON, VAHE F Unavailable [phone] PROBLEMS Condition Status Date Provider Notes GERD active Tiffany Stahlschmidt HYPERCHOLESTEROLEMIA active Tiffany Stahlsch midt SLEEP APNEA active Tiffany Stahlschmidt HTN ESSENTIAL active Tiffany Stahlschmidt SLEEP APNEA USES CPAP active [place] Robison CHEST PAIN, NL CATH IN 2003 active ? [place] pereira MD ENCOUNTERS Date Type Provider Location Encounter Diagnosis - In-person encounter Office Visit [place] Vickers MD [place] [facility] - In-person encounter Office Visit [place] Vickers MD [place] [facility] CHEST PAIN, NL CATH IN 2004SLEEP APNEA USES CPAP - In-person encounter Office Visit [place] Vickers MD [place] [facility] VITAL SIGNS Date Observation Value Provider [...] PACO weight E&M 201 [lb_av] Skye Wang DE RESULTS Date Observation Value Provider Reference Range [...] Payer name Policy type / Coverage type [facility] democrat ID COVENTRY- OPEN ACCESS/PPO Other [id number] TREATMENT PLAN Date Name Performer FOLLOW UP: [...] Findings: No EKG changes diagnostic for ischemia. [facility] (04/25/2002) C ardiac Cath: Normal coronary [...]
--- OUTSIDE RECORDS SUMMARY | 2024-07-02 16:40 | XMS_ITS | Referral Summary ---
Author Organization [facility] [address] Address [address] [place] [address] Care Team Providers Care Criminal Intelligence Analyst Name Role Phone Rinku Lester MD Primary Care Provider + [phone] James Rodriguez MD PhD Unavailable + [phone] Ron Jacques MD Unavailable [phone] Raul Russo MD Unavailable [phone] Allergies Active Allergy Reactions Criticality Noted [...] (05/12/2022): Added automatically from request for surgery [id number] Prevention of chemotherapy-induced neutropenia 0 04/30/2020 Malignant neoplasm of left female breast 020 Overview (02/20/2020): Added automatically from request for surgery [id number] Malignant neoplasm of upper- outer quadrant of left breast in female, estrogen receptor negative 01/23/2020 Cancer Staging:Pathologic stage from 04/07/2020:Stage IIA(pT2, pN0(sn), cM0, G2, ER-, RI-, HER2-) - Signed by James Rodriguez MD PhD on 04/07/2020 Assessment & Plan (04/01/2022 3:05 PM SEISMIC PROSPECTING OBSERVER): Recurrent area of tenderness with induration, minimal [...] on file Legal Sex Female 11:48 AM SEISMIC PROSPECTING OBSERVER Gender Identity Not on file Sexual Orientation [...] on file Medical Devices Implanted Type Area Crossband Layer Device Identifier Shelf Expiration Date Model / Serial / Lot [employer] [id number] Powerport Mri Airguard 8fr 1 Lumen Attachable Catheter Latex Free - [id number] Implanted:Qty: 1 on 04/14/2020 by Ron Jacques MD at [facility] [employer] 02/27/2021 [id number] / / [id number] Procedures Procedure Name Priority Date/Time Associated Diagnosis Comments POCT LIPID PANEL Routine 09/14/2023 9:02 AM CDT Lipid screening EGFR Routine 05/07/2022 1:45 PM SEISMIC PROSPECTING OBSERVER Malignant neoplasm of upper-outer quadrant of left breast in female, estrogen receptor negative (HCC) DIAGNOSTIC MAMMOGRAM BILATERAL W TOM Schedule Routine, Read Routine (OP Routine) 06/10/2021 9:02 AM CDT Malignant neoplasm of upper-outer quadrant of left breast in female, estrogen receptor negative (HCC) HEMOGLOBIN A1C Routine 04/23/2020 10:50 AM SEISMIC PROSPECTING OBSERVER from Last 3 Months or Most Recently [...] - Final * eGFR (05/07/2022 1:45 PM SEISMIC PROSPECTING OBSERVER) eGFR 98 mL/min/1. 73 m2 [facility] ([place]) Comment: Interpretive Data Reference Interval Normal >/= [...] last reviewed 2020. Blood 05/07/2022 1:45 PM SEISMIC PROSPECTING OBSERVER 05/07/2022 2:43 PM SEISMIC PROSPECTING OBSERVER us Dahlia Rodriguez NISSAN SALES CONSULTANT LAB BLOOD ORDERABLES Final Result [facility] ([place]) 1 [facility] Department [place] [address] * Diagnostic Mammogram Bilateral W [...] * (ABNORMAL) Hemoglobin A1c (04/23/2020 10:50 AM SEISMIC PROSPECTING OBSERVER) Hgb A1C 7.3(H) 4.0 - 5.6 % [facility] ([place]) Estimated Average Glucose 163 mg/dL [facility]) Comment: The ADA recommends reporting an estimated Average Glucose (eAG) with all Hemoglobin A1c results using the equation derived from a study of 507 normal and diabetic adults. Minority populations were underrepresented and children were not included. (Diabetes Care 31:6997-3337, 2008). The eAG is not equivalent to a fasting glucose. Blood specimen (specimen) 04/23/2020 10:50 AM SEISMIC PROSPECTING OBSERVER 04/23/2020 10:53 AM SEISMIC PROSPECTING OBSERVER Aleksandar LUKE LAB BLOOD ORDERABLES Final R esult [facility] ([place]) 1 [facility] Department [place] [address] from Last 3 Months or Most Recently Relevant to Health Maintenance [facility] CONTINENTAL LIFE INS [place] MEDICARE AETNA SENIOR SUPPLEMENT Care Teams Criminal Intelligence Analyst Relationship Specialty Start Date End Date Rinku Lester MD PCP - General Family Medicine 11/07/19 James Rodriguez MD PhD [address] [place] [address] Radiation Oncologist Radiation Oncology 04/07/20 Ron Jacques MD [address] [place] [address] Referring Physician General Surgery 04/07/20 Ralu Russo MD [address] [place] [address] Consulting Physician Hematology and Oncology 02/25/21
--- OUTSIDE RECORDS SUMMARY | 2024-07-02 16:40 | XMS_ITS | Clinical Summary ---
Author Organization [facility] [address] Address [address] [place] [address] Care Team Providers Care Machine Cementer Name Role Phone Rinku Lester MD Primary Care Provider + [phone] James Rodriguez MD PhD Unavailable + [phone] Ron Jacques MD Unavailable [phone] Raul Russo MD Unavailable [phone] Allergies Active Allergy Reactions Criticality Noted [...] (05/12/2022): Added automatically from request for surgery [id number] Prevention of chemotherapy-induced neutropenia 0 04/30/2020 Malignant neoplasm of left female breast 020 Overview (02/20/2020): Added automatically from request for surgery [id number] Malignant neoplasm of upper- outer quadrant of left breast in female, estrogen receptor negative 01/23/2020 Cancer Staging:Pathologic stage from 04/07/2020:Stage IIA(pT2, pN0(sn), cM0, G2, ER-, NE-, HER2-) - Signed by James Rodriguez MD PhD on 04/07/2020 Assessment & Plan (04/01/2022 3:05 PM IMPORT CLERK): Recurrent area of tenderness with induration, minimal [...] on file Legal Sex Female 11:48 AM IMPORT CLERK Gender Identity Not on file Sexual Orientation [...] 12/26/2019, 12/26/2019 Medical Devices Implanted Type Area Graphics Editor Device Identifier Shelf Expiration Date Model / Serial / Lot [employer] [id number] Powerport Mri Airguard 8fr 1 Lumen Attachable Catheter Latex Free - [id number] Implanted:Qty: 1 on 04/14/2020 by Ron Jacques MD at [facility] [employer] 02/27/2021 [id number] / / [id number] Procedures Procedure Name Priority Date/Time Associated Diagnosis Comments POCT LIPID PANEL Routine 09/14/2023 9:02 AM CDT Lipid screening EGFR Routine 05/07/2022 1:45 PM IMPORT CLERK Malignant neoplasm of upper-outer quadrant of left breast in female, estrogen receptor negative (HCC) DIAGNOSTIC MAMMOGRAM BILATERAL W YADI Schedule Routine, Read Routine (OP Routine) 06/10/2021 9:02 AM CDT Malignant neoplasm of upper-outer quadrant of left breast in female, estrogen receptor negative (HCC) HEMOGLOBIN A1C Routine 04/23/2020 10:50 AM IMPORT CLERK from Last 3 Months or Most Recently [...] - Final * eGFR (05/07/2022 1:45 PM IMPORT CLERK) eGFR 98 mL/min/1. 73 m2 SHAUNA ROMERO ([place]) Comment: Interpretive Data Reference Interval Normal >/= [...] last reviewed 2020. Blood 05/07/2022 1:45 PM IMPORT CLERK 05/07/2022 2:43 PM IMPORT CLERK us Dahlia Rodriguez SOFTWARE SECURITY CONSULTANT LAB BLOOD ORDERABLES Final Result Performing Organization Address City/State/[facility] Co de Phone Number SHAUNA [facility] 1 [facility] Department of Laboratories [place], [place] [id number] * Diagnostic Mammogram Bilateral W Yadi (06/10/2021 [...] * (ABNORMAL) Hemoglobin A1c (04/23/2020 10:50 AM IMPORT CLERK) Hgb A1C 7.3(H) 4.0 - 5.6 % [facility] ROMERO (ASH) Estimated Average Glucose 163 mg/dL [facility]NA ROMERO (ASH) Comment: The ADA recommends reporting an estimated Average Glucose (eAG) with all Hemoglobin A1c results using the equation derived from a study of 507 normal and diabetic adults. Minority populations were underrepresented and children were not included. (Diabetes Care 31:0955-0493, 2008). The eAG is not equivalent to a fasting glucose. Blood specimen (specimen) 04/23/2020 10:50 AM IMPORT CLERK 04/23/2020 10:53 AM IMPORT CLERK Aleksandar LUKE LAB BLOOD ORDERABLES Final R esult [facility] ([place]) 1 [facility] Department of Laboratories [place] [id number] from Last 3 Months or Most Recently Relevant to Health Maintenance Insurance MEDICARE AET SENIOR SUPPLEMENT MEDICARE [facility] MEDICARE AETNA SENIOR SUPPLEMENT Care Teams Machine Cementer Relationship Specialty Start Date End Date Rinku Lester MD PCP - General Family Medicine 11/07/19 James Rodriguez MD PhD [address] [place] [id number] Radiation Oncologist Radiation Oncology 04/07/20 Ron Jacques MD [address] [place] [id number] Referring Physician General Surgery 04/07/20 Raul Russo MD [address] [place] [id number] Consulting Physician Hematology and Oncology 02/25/21
--- OUTSIDE RECORDS SUMMARY | 2024-07-02 16:40 | XMS_ITS | Clinical Summary ---
Author Organization [facility] Karol Avilakirk Address [address] [place] [address] Care Team Providers Care Aircraft Engine Technician Name Role Phone Rinku Lester MD Primary Care Provider [phone] Allergies Active Allergy Reactions Criticality Noted Date [...] Description 05/17/2024 1:15 PM CDT Office Visit [facility] Oncology and Hematology - [place] [address] [place] [address] Rich De Souza MD Malignant neoplasm of left breast in female, estrogen receptor negative, unspecified site of breast (CMS/HCC) (Primary Dx) 05/16/2024 External Device Data STL ABSTRACTION Provider, Abstract 05/14/2024 Orders Only [facility] Oncology and Hematology - [place] [address] [place] [address] Rich De Souza MD 05/10/2024 Orders Only [facility] Oncology and Hematology - [place] [address] [place] [address] Rich De Souza MD 05/05/2024 External Device [...] on file Legal Sex Female 4:11 PM YOUTH SERVICES LIBRARIAN Gender Identity Not on file Sexual Orientation [...] (5' 2 ) 03/02/2023 10:1 2 AM YOUTH SERVICES LIBRARIAN Body Mass Index 29.23 03/02/2023 10:12 AM YOUTH SERVICES LIBRARIAN Plan of Treatment Upcoming Encounters Date Type Department Care Team (Late st Contact Info) Description 11/20/2024 3:30 PM CDT Office Visit [facility] Oncology and Hematology - [place] [address] [facility] [address] [place] [address] Rich De Souza MD [address] [facility] [address] [place] [address] Health Maintenance Due Date Last [...] Resu lt from Last 3 Months Insurance [facility] [id number] Care Teams Aircraft Engine Technician Relationship Specialty Start Date End Date Rinku Lester MD [address] [place] [id number] PCP - General Family Practice 03/02/23
--- OUTSIDE RECORDS SUMMARY | 2024-07-02 16:40 | XMS_ITS ---
Author Organization [facility] [address] Address [address] [place] [address] Care Team Providers Care Hog Killer Name Role Phone Rinku Lester MD Primary Care Provider + [phone] James Rodriguez MD PhD Unavailable [phone] Ron Jacques MD Unavailable [phone] Raul Russo MD Unavailable [phone] Active Problems Problem Noted Date Diagnosed Date Seroma of breast 05/12/2022 Overview (05/12/2022): Added automatically from request for surgery [id number] Prevention of chemotherapy-induced neutropenia 0 04/30/2020 Malignant neoplasm of left female breast 020 Overview (02/20/2020): Added automatically from request for surgery [id number] Malignant neoplasm of upper- outer quadrant of left breast in female, estrogen receptor negative 01/23/2020 Cancer Staging:Pathologic stage from 04/07/2020:Stage IIA(pT2, pN0(sn), cM0, G2, ER-, [place]-, HER2-) - Signed by James Rodriguez MD PhD on 04/07/2020 Assessment & Plan (04/01/2022 3:05 PM RIB MATCHER AND FITTER): Recurrent area of tenderness with induration, minimal [...]
--- NOTE | 2024-07-02 17:23 | ED.FEMALEGU ---
HPI - Female Genitourinary General Chief complaint: Urogenital-Female <Ángela Snyder PA-C - Last Filed: 07/02/24 21:08> Stated complaint: I have a kidney stone hematuria <Ángela Snyder PA-C - Last Filed: 07/02/24 21:08> Time Seen by Provider: 07/02/24 15:16 <Ángela Snyder PA-C - Last Filed: 07/02/24 21:08> History of Present Illness HPI Narrative: 68-year-old female with history of hyperlipidemia, type 2 diabetes, hypertension, GERD presents to the emergency department with concerns for concerns for a right-sided kidney stone. Patient states at 4:00 a.m. this morning she began developing pain to the right flank have feels like her prior kidney stones. States the pain waxes and wanes. It is associated with hematuria and dysuria. Reports a history of several kidney stones in the past and follows with urologist, Dr. Connell. She denies fevers, nausea or vomiting. <Ángela Snyder PA-C - Last Filed: 07/02/24 21:08> Related Data Home medications: Home Medications ?Medication ?Instructions ?Recorded ?Confirmed ?Last Taken ?Type aspirin 81 mg tablet,delayed 81 mg PO HS 12/30/22 05/23/24 01/01/24 History release omeprazole 20 mg capsule,delayed 20 mg PO DAILY 12/30/22 05/23/24 01/12/24 History release losartan 50 mg tablet 50 mg PO DAILY 07/07/23 05/23/24 01/12/24 History gabapentin 300 mg capsule 600 mg PO .PM 05/23/24 05/23/24 Unknown History <BETZY Bolton Last Filed: 07/02/24 21:08> Allergies/Adverse reactions: Allergies Allergy/AdvReac Type Severity Reaction Status Date / Time Penicillins Allergy Unknown Rash Verified 07/02/24 15:04 <BETZY Bolton Last Filed: 07/02/24 21:08> Review of Systems Review of Systems: All systems reviewed & are unremarkable except as noted in HPI and below <BETZY Bolton Last Filed: 07/02/24 21:08> [facility] Past Medical History Medical History: Medical History Neuropathy due to chemotherapeutic drug History of left breast cancer Influenza Chest pressure Inflamed skin tag Actinic keratosis Changing skin lesion Wound of left breast Yeast infection Recurrent seroma of breast Left renal stone Ureteropelvic junction (UPJ) obstruction, left Renal colic on left side Acute bacterial sinusitis DM2 (diabetes mellitus, type 2) Essential (primary) hypertension Peptic ulcer Type 2 diabetes mellitus Obstructive sleep apnea Kidney stone Hypertension Gastroesophageal reflux disease Triple negative malignant neoplasm of breast Status post left breast lumpectomy with chemo radiation. Peripheral neuropathy due to chemotherapy Obesity Anemia Depression Arthritis Diverticulitis Hypercholesteremia <Ángela Snyder PA-C - Last Filed: 07/02/24 21:08> Surgical History Surgical History: Surgical History S/P bilateral mastectomy History of partial mastectomy of left breast H/O breast surgery History of appendectomy History of tubal ligation History of lumpectomy of left breast History of lithotripsy x5. History of hysterectomy History of cholecystectomy History of tonsillectomy <Ángela Snyder PA-C - Last Filed: 07/02/24 21:08> Family History Family History: Family History Father Heart disease Diabetes mellitus Acute myocardial infarction Mother Breast cancer Sibling Breast cancer Stomach cancer <Ángela Snyder PA-C - Last Filed: 07/02/24 21:08> Social History Social History: Social History Social History: Surrogate medical decision maker: Darrick Swenson, spouse. Code status: Full code. Smoking status: Never smoker Second hand tobacco smoke exposure: No Alcohol intake: never Substance use: never Substance use type: does not use Do You Feel Safe in your Home?: Yes Lack of Transportation: No Lack of Food: Never True Current Housing: I Have Housing Concerned About Future Housing: No Difficulty Paying Gas/Electric Bills: No Difficulty Paying for Meds: Decline to Answer Currently Unemployed: No Education: Trade/Vocational Certificate Difficulty w/ Childcare or Family Care: No Living arrangements: with family Additional living arrangements comments: Occupation/Education: retired Additional occupation/education comments: Accounting. Spiritual care concerns: No <BETZY Bolton Last Filed: 07/02/24 21:08> Exam Narrative: GENERAL: Well-appearing, well-nourished, and in no acute distress. HEAD: Normocephalic, atraumatic. EYES: EOMI. ENT: Nares clear, no rhinorrhea or epistaxis. Mucous membranes moist. NECK: Supple. CHEST: Clear to auscultation. No respiratory distress. HEART: Tachycardic, regular rhythm. No murmur heard. Normal peripheral pulses. ABDOMEN: Soft, nontender, nondistended, normal active bowel sounds. Right-sided CVA tenderness EXTREMITIES: Normal range of motion. No edema. SKIN: Warm, dry, no rash. NEURO: No focal deficits. Alert and oriented x3 <Ángela Snyder PA-C - Last Filed: 07/02/24 21:08> Course NUISANCE WILDLIFE SPECIALIST/PA Physician Supervision I agree with midlevel documentation; I performed the medical decision making component of this evaluation. <Shereen Julian MD - Last Filed: 07/03/24 02:42> Vital Signs Vital signs: Vital Signs Temperature 97.7 F 07/02/24 15:08 Pulse Rate 127 H 07/02/24 15:08 Respiratory Rate 18 07/02/24 15:08 Blood Pressure 115/68 07/02/24 15:08 Pulse Oximetry 100 07/02/24 15:08 Oxygen Delivery Room Air 07/02/24 15:08 Temperature 97.7 F 07/02/24 15:08 Pulse Rate 99 07/02/24 20:15 Respiratory Rate 14 07/02/24 20:15 Blood Pressure 146/75 H 07/02/24 20:15 Pulse Oximetry 100 07/02/24 20:15 Oxygen Delivery Room Air 07/02/24 15:08 <Ángela Snyder PA-C - Last Filed: 07/02/24 21:08> Vital Signs Temperature 97.7 F 07/02/24 15:08 Pulse Rate 127 H 07/02/24 15:08 Respiratory Rate 18 07/02/24 15:08 Blood Pressure 115/68 07/02/24 15:08 Pulse Oximetry 100 07/02/24 15:08 Oxygen Delivery Room Air 07/02/24 15:08 Temperature 97.7 F 07/02/24 15:08 Pulse Rate 99 07/02/24 20:15 Respiratory Rate 14 07/02/24 20:15 Blood Pressure 146/75 H 07/02/24 20:15 Pulse Oximetry 100 07/02/24 20:15 Oxygen Delivery Room Air 07/02/24 15:08 <Shereen Julian MD - Last Filed: 07/03/24 02:42> MDM - Female Genitourinary MDM Narrative Medical decision making narrative: 68-year-old female with a reported history of kidney stones presents to the emergency department with concern for right-sided kidney stone. Patient developed right flank pain, dysuria hematuria at 4:00 a.m. this morning. Triage vitals with tachycardia 127. Patient is afebrile and nontoxic appearing. Fluids provided for tachycardia. Exam is notable for right-sided CVA tenderness, abdomen is otherwise soft and nontender. CBC without leukocytosis or anemia. Chemistries are unremarkable with normal creatinine and BUN. UA with hematuria and 2150 white blood cells, no nitrates or leuk esterase. Lipase within normal limits. CT abdomen pelvis shows: IMPRESSION: Hepatomegaly Findings suggesting prior granulomatous disease. No obstructive uropathy. Nonobstructing left renal calculus. Patient was updated on findings. She was given IV fluids and morphine with improvement in symptoms. Tachycardia resolved. She is resting comfortably in exam bed. Suspect symptoms are secondary to either passed ureteral stone versus pyelonephritis. Patient was given a dose of IV Rocephin in the ED and it started to be discharged home. She agrees to follow-up closely with her urologist. Will start her on Bactrim for home. She politely declines any pain medications for home and states she has ibuprofen and oxycodone as to use p.r.n.. Discussed strict ED return precautions. She is agreeable to plan verbalized understanding. Discharged in stable condition. <Ángela Snyder PA-C - Last Filed: 07/02/24 21:08> Lab Data Result diagrams: 07/02/24 15:23 07/02/24 15:23 <Ángela Snyder PA-C - Last Filed: 07/02/24 21:08> Labs: Lab Results 07/02/24 Range/Units 15:23 WBC 7.3 (4.5-10.0) K/mm3 RBC 5.00 (4.2-5.4) M/mm3 Hgb 14.8 (12.0-15.0) g/dL Hct 46.8 (37.0-47.0) % MCV 93.6 (80-100) fl MCH 29.6 (26-34) pg MCHC 31.6 L (32-36) g/dl RDW 12.7 (11.5-14.5) % Plt Count 273 (150-375) k/mm3 MPV 9.0 (7.4-10.4) fl Immature Gran % (Auto) 0.3 (0-0.5) % Neut % (Auto) 54.9 (45.5-73.1) % Lymph % (Auto) 28.4 (18.3-44.2) % [place] % (Auto) 14.1 H (2.6-8.5) % Eos % (Auto) 1.5 (0-4.4) % Baso % (Auto) 0.8 (0.2-1.2) % Lymph # (Auto) 2.06 (0.9-3.2) K/mm3 [place] # (Auto) 1.0 H (0.1-0.6) K/mm3 Eos # (Auto) 0.1 (0-0.3) K/mm3 Baso # (Auto) 0.1 (0.0-0.1) K/mm3 Abs Immat Gran (auto) 0.02 (0.00-0.031) K/mm3 Absolute Neuts (auto) 4.0 (1.3-6.7) K/mm3 Absolute Nucleated RBC 0.000 (0.0-0.012) K/mm3 Nucleated RBC % 0.0 (0.0-0.2) % Sodium 137 (137-145) mmol/L Potassium 3.9 (3.4-5.0) mmol/L Chloride 98 (98-107) mmol/L Carbon Dioxide 29 (22-30) mmol/L Anion Gap 10 (4-12) mmol/L BUN 15 (7-17) mg/dL Creatinine 0.67 L (0.7-1.0) mg/dL Estim Creat Clear Calc 65 ml/min Estimated GFR > 60 (59 - ) Glucose 101 (65-110) mg/dL Calcium 9.1 (8.4-10.2) mg/dL Total Bilirubin 0.8 (0.2-1.3) mg/dL AST 31 (14-36) U/L ALT 31 (6-35) U/L Alkaline Phosphatase 94 (38-126) U/L Total Protein 8.0 (6.3-8.2) g/dL Albumin 4.7 (3.5-5.1) g/dL Lipase 267 (23-300) U/L Urine Color Light red H (Yellow) Urine Appearance Cloudy H (Clear) Urine pH 5.5 (5.0-9.0) Ur Specific [place] 1.025 (1.001-1.035) Urine Protein 2+ H (Negative) mg/dL Urine Glucose (UA) 3+ H (Negative) mg/dL Urine Ketones Trace H (Negative) mg/dL Ur Blood (Man) 3+ H (Negative) Urine Nitrate Negative (Negative) Urine Bilirubin Negative (Negative) Urine Urobilinogen 1.0 (<2.0) mg/dL Add Ur Microanalysis Reviewed Leukocyte Esterase Rfl Negative (Negative) [place]/UL Urine RBC >100 H (0-2) /hpf Urine WBC 21-50 H (0-3) /hpf Ur Squamous Epith Cells Few (Few) /hpf Urine Bacteria Rare /hpf Urine Casts 0-2 <Ángela Snyder PA-C - Last Filed: 07/02/24 21:08> Lab Results 07/02/24 Range/Units 15:23 WBC 7.3 (4.5-10.0) K/mm3 RBC 5.00 (4.2-5.4) M/mm3 Hgb 14.8 (12.0-15.0) g/dL Hct 46.8 (37.0-47.0) % MCV 93.6 (80-100) fl MCH 29.6 (26-34) pg MCHC 31.6 L (32-36) g/dl RDW 12.7 (11.5-14.5) % Plt Count 273 (150-375) k/mm3 MPV 9.0 (7.4-10.4) fl Immature Gran % (Auto) 0.3 (0-0.5) % Neut % (Auto) 54.9 (45.5-73.1) % Lymph % (Auto) 28.4 (18.3-44.2) % [place] % (Auto) 14.1 H (2.6-8.5) % Eos % (Auto) 1.5 (0-4.4) % Baso % (Auto) 0.8 (0.2-1.2) % Lymph # (Auto) 2.06 (0.9-3.2) K/mm3 [place] # (Auto) 1.0 H (0.1-0.6) K/mm3 Eos # (Auto) 0.1 (0-0.3) K/mm3 Baso # (Auto) 0.1 (0.0-0.1) K/mm3 Abs Immat Gran (auto) 0.02 (0.00-0.031) K/mm3 Absolute Neuts (auto) 4.0 (1.3-6.7) K/mm3 Absolute Nucleated RBC 0.000 (0.0-0.012) K/mm3 Nucleated RBC % 0.0 (0.0-0.2) % Sodium 137 (137-145) mmol/L Potassium 3.9 (3.4-5.0) mmol/L Chloride 98 (98-107) mmol/L Carbon Dioxide 29 (22-30) mmol/L Anion Gap 10 (4-12) mmol/L BUN 15 (7-17) mg/dL Creatinine 0.67 L (0.7-1.0) mg/dL Estim Creat Clear Calc 65 ml/min Estimated GFR > 60 (59 - ) Glucose 101 (65-110) mg/dL Calcium 9.1 (8.4-10.2) mg/dL Total Bilirubin 0.8 (0.2-1.3) mg/dL AST 31 (14-36) U/L ALT 31 (6-35) U/L Alkaline Phosphatase 94 (38-126) U/L Total Protein 8.0 (6.3-8.2) g/dL Albumin 4.7 (3.5-5.1) g/dL Lipase 267 (23-300) U/L Urine Color Light red H (Yellow) Urine Appearance Cloudy H (Clear) Urine pH 5.5 (5.0-9.0) Ur Specific [place] 1.025 (1.001-1.035) Urine Protein 2+ H (Negative) mg/dL Urine Glucose (UA) 3+ H (Negative) mg/dL Urine Ketones Trace H (Negative) mg/dL Ur Blood (Man) 3+ H (Negative) Urine Nitrate Negative (Negative) Urine Bilirubin Negative (Negative) Urine Urobilinogen 1.0 (<2.0) mg/dL Add Ur Microanalysis Reviewed Leukocyte Esterase Rfl Negative (Negative) [place]/UL Urine RBC >100 H (0-2) /hpf Urine WBC 21-50 H (0-3) /hpf Ur Squamous Epith Cells Few (Few) /hpf Urine Bacteria Rare /hpf Urine Casts 0-2 <Shereen Julian MD - Last Filed: 07/03/24 02:42> Discharge Plan Discharge Clinical Impression: Hepatomegaly, Left nephrolithiasis, Acute pyelonephritis <Ángela Snyder PA-C - Last Filed: 07/02/24 21:08> Patient Disposition: Home <Ángela Snyder PA-C - Last Filed: 07/02/24 21:08> Condition: Stable <Ángela Snyder PA-C - Last Filed: 07/02/24 21:08> Instructions: Antibiotic Form, Kidney Infection (ED), Hematuria (ED) <Ángela Snyder PA-C - Last Filed: 07/02/24 21:08> Additional Instructions: Your evaluated in the emergency department for right flank pain and concern for kidney stone. Your found have a stone in the left kidney but there are no stones in the right kidney or ureter. You were found to have blood in your urine and some white blood cells. Your pain is either secondary to a passed kidney stone or a kidney infection. Please take antibiotics as directed. Drink plenty of fluids and follow-up closely with your urologist. You were also found to have an enlarged liver, please follow-up with her primary care provider regarding this. Return to the emergency department if you develop a fever of 100.4 or greater, your unable to tolerate food or fluids, you develop worsening pain or other concerning symptoms. <Ángela Snyder PA-C - Last Filed: 07/02/24 21:08> Patient Language: German <Ángela Snyder PA-C - Last Filed: 07/02/24 21:08> Prescriptions: New sulfamethoxazole-trimethoprim 800-160 mg tablet 1 tablet PO Q12H 10 Days Qty: 20 0RF No Action (DME) blood-glucose meter Kit See Rx Instructions .Route Qty: 1 0RF Rx Instructions: As directed for blood glucose monitoring bid losartan 50 mg tablet 50 mg PO DAILY Patient Comments: QHS semaglutide 2 mg/dose (8 mg/3 mL) pen injector 2 mg subcut WEEKLY Qty: 3 3RF Patient Comments: ON FRIDAYS aspirin 81 mg Tablet,Delayed Release (Dr/Ec) 81 mg PO HS omeprazole 20 mg Capsule,Delayed Release(Dr/Ec) 20 mg PO DAILY hydrocodone-acetaminophen 5-325 mg tablet 1 tablet PO Q8H PRN (Reason: pain) Qty: 14 0RF gabapentin 300 mg capsule 600 mg PO .PM Patient Comments: USUALLY TAKES 2 TAB AT HS Rx Instructions: 2 tablets BID (DME) lancets [OneTouch Delica Plus Lancet] 33 gauge misc See Rx Instructions .Route Qty: 100 0RF Rx Instructions: Test glucose bid for diabetes (DME) OneTouch Verio test strips Strip See Rx Instructions .Route Qty: 100 0RF Rx Instructions: test glucose daily duloxetine 30 mg capsule,delayed release(DR/EC) See Rx Instructions .ROUTE .COMPLEX Qty: 90 2RF Dose Instruction: TAKE 1 CAPSULE BY MOUTH EVERY DAY Patient Comments: 30 MG at hs Rx Instructions: TAKE 1 CAPSULE BY MOUTH EVERY DAY duloxetine 60 mg capsule,delayed release(DR/EC) See Rx Instructions .ROUTE .COMPLEX Qty: 90 2RF Dose Instruction: TAKE 1 CAPSULE BY MOUTH EVERY DAY Patient Comments: IN AM Rx Instructions: TAKE 1 CAPSULE BY MOUTH EVERY DAY rosuvastatin 20 mg tablet 20 mg PO DAILY Qty: 90 3RF trazodone 50 mg tablet 100 mg PO QHS Qty: 180 0RF dapagliflozin propanediol [Farxiga] 10 mg tablet 10 mg PO QAM Qty: 90 0RF <Ángela Snyder PA-C - Last Filed: 07/02/24 21:08> Follow-up/Referrals: Tra Connell MD [Physician] - Rinku Lester MD [Primary Care Provider] - <Ángela Snyder PA-C - Last Filed: 07/02/24 21:08>
[2024-07-02] MEDS: SODIUM CHLORIDE 0.9% IV 1,000 ML 999 ML IV CONT (17:38)
[2024-07-02] MEDS: MORPHINE SULFATE (*CRX) 2 MG/ML INJ IV PUSH ×2 (17:38→18:57)
[2024-07-02 19:20] VITALS: BP 137/74; PULSE 101; RESP 14; O2SAT 100
[2024-07-02 20:15] VITALS: BP 146/75; PULSE 99; RESP 14; O2SAT 100
== END 2024-07-02 22:11 | disposition home or self-care (01) ==
PROVIDERS: Physician Assistant; Emergency Provider Physician Assistant; PCP Family Medicine
DX: N10 Acute pyelonephritis (principal); N20.0 Calculus of kidney; R16.0 Hepatomegaly, not elsewhere classified; I10 Essential (primary) hypertension; E11.9 Type 2 diabetes mellitus without complications; E78.00 Pure hypercholesterolemia, unspecified; E66.9 Obesity, unspecified; Z68.28 Body mass index [BMI] 28.0-28.9, adult; G47.33 Obstructive sleep apnea (adult) (pediatric); M19.90 Unspecified osteoarthritis, unspecified site; K21.9 Gastro-esophageal reflux disease without esophagitis; F32.A Depression, unspecified; Z87.442 Personal history of urinary calculi; Z85.3 Personal history of malignant neoplasm of breast; Z87.11 Personal history of peptic ulcer disease; Z90.13 Acquired absence of bilateral breasts and nipples; Z90.710 Acquired absence of both cervix and uterus; Z90.49 Acquired absence of other specified parts of digestive tract; Z79.82 Long term (current) use of aspirin; Z79.85 Long-term (current) use of injectable non-insulin antidiabetic drugs; Z79.899 Other long term (current) drug therapy; R00.0 Tachycardia, unspecified; R94.31 Abnormal electrocardiogram [ECG] [EKG]
CPT/HCPCS: 36415; 74176; 80053; 81001; 83690; 85025; 87086; 93005; 96361; 96365; 96375; 96376; 99284; J0696; J2270; J7030

== ENCOUNTER 2024-07-14 09:32 | Outpatient (CLI) | payer MEDICARE, SELFPAY ==
--- NOTE | ~2024-07-14 | US_ITS ---
Abdominal Sonogram: Real-time sonographic imaging of the abdomen was performed. Clinical History: Hepatomegaly Findings: The liver appears normal with no evidence of mass lesion or bile duct dilatation. Liver me asures 18.9 cm in length. Main portal vein demonstrates normal direction of flow. The spleen is maria a l in size without evidence of focal lesion. The gallbladder is well distended, and appears normal wi th no evidence of gallstone or wall thickening. The common bile duct measures 3 mm. The visualized p ancreas, aorta, and IVC are unremarkable. The right kidney measures 12.2 cm in length and the left k idney measures 11.0 cm. There is no hydronephrosis or renal calculus. Kidneys are probably mildly ec hogenic. Impression: Hepatomegaly. Mildly echogenic kidneys suggest chronic medical renal disease. Reviewed, dictated and finalized at [facility]. Impression: Hepatomegaly. Mildly echogenic kidneys suggest chronic medical renal disease.
== END 2024-07-14 09:33 | disposition home or self-care (01) ==
LOC: MICIMG 09:33
PROVIDERS: PCP Family Medicine; Visit Provider Physician Assistant Medical
DX: R16.0 Hepatomegaly, not elsewhere classified (principal)
CPT/HCPCS: 76700

== ENCOUNTER 2024-10-11 07:41 | Outpatient (CLI) | payer MEDICARE, SELFPAY ==
--- NOTE | ~2024-10-11 | XR_ITS ---
XR abdomen/kub 1V 10/11/2024 08:00 Indication: Left ureteral stone Procedure: KUB Comparison: Comparison to multiple prior studies sequentially, with oldest reviewed study dated 11/29. Findings: There are left renal stones. No definite ureteral stone. There are lower abdominal and pelv ic calcifications which are stable. Bowel gas pattern nonobstructive. No acute osseous abnormality. T here are cholecystectomy clips. Impression: 1: Left nephrolithiasis. Reviewed, dictated and finalized at location A. Impression: 1: Left nephrolithiasis.
--- OUTSIDE RECORDS SUMMARY | 2024-10-11 07:45 | XMS_ITS | Continuity of Care Document ---
Author Organization [facility] Address [id number] [place] [address] [address] [place] [address] Phone Care Team Providers Care Type Bar And Segment Assembler Name Role Phone Liz Smyth Unavailable Unavailable Advance Directives Directive Yes / No Effective Date File Name No Information Encounters Encounter Description Practice Location Reason(s) For Visit Diagnoses Date Provider Providers Copied on Encounter [facility] [address], [place], [place], [id number], [place] tel:[phone] [facility] No Information Mar-0 2-200 [address]. [address] [facility] , [address], [place], [place], [facility], [place]. tel:[phone] Referring Provider: Rakan Toribio, [address] [place] [address], [facility]. tel:[phone] Family History Family Member Type Diagnosis Age [...]
--- OUTSIDE RECORDS SUMMARY | 2024-10-11 07:45 | XMS_ITS ---
Author Organization [facility] [address] Address [address] [place] [address] Care Team Providers Care Maintenance Of Way Supervisor Name Role Phone Rinku Lester MD Primary Care Provider + [phone] James Rodriguez MD PhD Unavailable + [phone] Ron Jacques MD Unavailable [phone] Raul Russo MD Unavailable [phone] Active Problems Problem Noted Date Diagnosed Date Seroma of breast 05/12/2022 Overview (05/12/2022): Added automatically from request for surgery [id number] Prevention of chemotherapy-induced neutropenia 0 04/30/2020 Malignant neoplasm of left female breast 020 Overview (02/20/2020): Added automatically from request for surgery [id number] Malignant neoplasm of upper- outer quadrant of left breast in female, estrogen receptor negative 01/23/2020 Cancer Staging:Pathologic stage from 04/07/2020:Stage IIA(pT2, pN0(sn), cM0, G2, ER-, LA-, HER2-) - Signed by James Rodriguez MD PhD on 04/07/2020 Assessment & Plan (04/01/2022 3:05 PM PREVENTIVE MEDICINE SPECIALIST): Recurrent area of tenderness with induration, minimal [...]
--- OUTSIDE RECORDS SUMMARY | 2024-10-11 07:45 | XMS_ITS | Clinical Summary ---
Author Organization [facility] Karol Corcoran Address [address] [place] [address] Care Team Providers Care Photographic Developer And Printer Name Role Phone Rinku Lester MD Primary Care Provider [phone] Allergies Active Allergy Reactions Criticality Noted Date [...] Encounters Date Type Department Care Team Description 09/12/2024 External Device Data STL ABSTRACTION Provider, Abstract 09/12/2024 External Device Data STL ABSTRACTION Provider, Abstract 09/12/2024 External Device Data STL ABSTRACTION Provider, Abstract 09/11/2024 External Device Data STL ABSTRACTION Provider, Abstract 07/18/2024 External Device Data STL ABSTRACTION Provider, Abstract 07/17/2024 External Device Data STL ABSTRACTION Provider, Abstract [...] on file Legal Sex 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 Gender Identity Not on file Sexual Orientation [...] 12:58 PM CDT Height 157.5 cm (5' 2) 03/02/2023 10:1 2 AM FLATBED DRIVER Body Mass Index 29.23 03/02/2023 10:12 AM FLATBED DRIVER Plan of Treatment Upcoming Encounters Date Type Department Care Team (Late st Contact Info) Description 11/20/2024 3:30 PM CDT Office Visit [facility] - [place] [address] [place] [address] Rich De Souza MD [address] [place] [address] Health Maintenance Due Date Last [...] 50+ YEA RS (2 of 2 - PCV20 or PCV21) 12/25/2020 12/26/2019 BREAST CANCER SCREENING 06/10/2022 06/11/19, 06/10/2021, 12/13/2019, Additional history exists COVID-19 Vaccine (5 - 2023-2 5 season) 2023 02/24/2021, 2020, 08/12/2020, Additional history exists INFLUENZA VACCINE (#1) 2024 , 12/26/2019, 01/26/2019 Insurance [facility] [id number] Care Teams Photographic Developer And Printer Relationship Specialty Start Date End Date Rinku Lester MD [address] [place] [id number] PCP - General Family Practice 03/02/23
--- OUTSIDE RECORDS SUMMARY | 2024-10-11 07:45 | XMS_ITS | Clinical Summary ---
Author Organization [facility] [address] Address [address] [place] [address] Care Team Providers Care Music Therapist [employer] Name Role Phone Rinku Lester MD Primary Care Provider + [phone] James Rodriguez MD PhD Unavailable + [phone] Ron Jacques MD Unavailable [phone] Raul Russo MD Unavailable [phone] Allergies Active Allergy Reactions Criticality Noted [...] (05/12/2022): Added automatically from request for surgery [id number] Prevention of chemotherapy-induced neutropenia 0 04/30/2020 Malignant neoplasm of left female breast 020 Overview (02/20/2020): Added automatically from request for surgery [id number] Malignant neoplasm of upper- outer quadrant of left breast in female, estrogen receptor negative 01/23/2020 Cancer Staging:Pathologic stage from 04/07/2020:Stage IIA(pT2, pN0(sn), cM0, G2, ER-, MI-, HER2-) - Signed by James Rodriguez MD PhD on 04/07/2020 Assessment & Plan (04/01/2022 3:05 PM SENSOR OPERATOR): Recurrent area of tenderness with induration, [...] on file Legal Sex Female 11:48 AM SENSOR OPERATOR Gender Identity Not on file Sexual [...] 9:00 AM CDT Height 160 cm (5' 3) 09/14/2023 9:00 AM CDT Body Mass Index 32.42 09/14/2023 9:00 AM CDT Plan of Treatment Health Maintenance Due Date Last Done Comments Colon Cancer Screening-Colonoscopy 1955 Depression Screening 1955 Hepatitis C Screening 1955 Osteoporosis Screening-Bone Density Scan 1955 DTaP/Tdap/Td Vaccine (1 - Tdap) 1965 Hepatitis B Screening 1972 Zoster Vaccine (1 of 2) 2004 Well Visit 65+ 09/23/2019 Breast Cancer Screening-Mammogram 06/10/2022 022 Fall Risk Assessment 06/24/2022 06/24/2021, 07/03/19 21 Covid-19 Vaccine (2023- 5 season) 2023 09/11/2021, 02/24/2021, 02/24/2021, Additional history exists Influenza Vaccine (#1) 2024 , 01/20/2021, 01/07/2021, Additional history exists Pneumococcal vaccine 65+ Completed 022, 12/26/2019, 12/26/2019 Medical Devices Implanted Type Area Bricklayer Sewer Device Identifier Shelf Expiration Date Model / Serial / Lot [employer] [id number] Powerport Mri Airguard 8fr 1 Lumen Attachable Catheter Latex Free - [id number] Implanted:Qty: 1 on 04/14/2020 by Ron Jacques MD at [facility] [employer] 02/27/2021 [id number] / / [id number] Procedures Procedure Name Priority Date/Time Associated Diagnosis Comments DIAGNOSTIC MAMMOGRAM BILATERAL W TOM Schedule Routine, Read Routine (OP Routine) 06/10/2021 9:02 AM CDT Malignant neoplasm of upper-outer quadrant of left breast in female, estrogen receptor negative (HCC) from Last 3 Months or Most Recently Relevant to Health Maintenance Results * Diagnostic Mammogram Bilateral W Tom (06/10/2021 [...] Rodriguez NP IMG MAMMO PROCEDURES Final Result from Last 3 Months or Most Recently Relevant to Health Maintenance Insurance MEDICARE AET SENIOR SUPPLEMENT MEDICARE [employer] MEDICARE AETNA SENIOR SUPPLEMENT Care Teams Music Therapist [employer] Relationship Specialty Start Date End Date Rinku Lester MD PCP - General Family Medicine 11/07/19 James Rodriguez MD PhD [address] [place] [address] Radiation Oncologist Radiation Oncology 04/07/20 Ron Jacques MD [address] [place] [address] Referring Physician General Surgery 04/07/20 Raul Russo MD [address] [place] [address] Consulting Physician Hematology and Oncology 02/25/21
== END 2024-10-11 07:42 | disposition home or self-care (01) ==
PROVIDERS: PCP Family Medicine; Visit Provider Urology
DX: N20.1 Calculus of ureter (principal)
CPT/HCPCS: 74018

== ENCOUNTER 2024-11-14 11:28 | Outpatient (CLI) | payer MEDICARE, SELFPAY ==
[2024-11-14 11:41] LABS: Hematocrit 43.7 % (37.0-47.0); Hemoglobin 14.5 g/dL (12.0-15.0); Immature Granulocyte Percent A 0.3 % (0-0.5); Lymphocytes Absolute Auto 2.36 K/mm3 (0.9-3.2); Mean Corpuscular HGB Conc 33.2 g/dl (32-36); Mean Corpuscular Hemoglobin 29.8 pg (26-34); Mean Corpuscular Volume 89.9 fl (80-100); Nucleated Red Blood Cells Absolute Auto 0.000 K/mm3 (0.0-0.012); Nucleated Red Blood Cells Perc 0.0 % (0.0-0.2); Platelet Count Result 288 k/mm3 (150-375); Red Blood Count 4.86 M/mm3 (4.2-5.4); White Blood Count 9.5 K/mm3 (4.5-10.0)
[2024-11-14 13:08] LABS: Alanine Aminotransferase 27 U/L (6-35); Albumin Level 4.5 g/dL (3.5-5.1); Alkaline Phosphatase 102 U/L (38-126); Anion Gap 5 mmol/L (4-12); Aspartate Amino Transferase 35 U/L (14-36); Bilirubin,Total 1.0 mg/dL (0.2-1.3); Blood Urea Nitrogen 16 mg/dL (7-17); Calcium 9.5 mg/dL (8.4-10.2); Carbon Dioxide 30 mmol/L (22-30); Chloride 102 mmol/L (98-107); Estimated Glomerular Filt Rate > 60; Glucose 145 mg/dL (65-110); Potassium 4.4 mmol/L (3.4-5.0); Sodium 137 mmol/L (137-145); Total Protein 8.1 g/dL (6.3-8.2)
== END 2024-11-14 11:29 | disposition home or self-care (01) ==
LOC: ANHLAB 11:29
PROVIDERS: PCP Family Medicine; Visit Provider Internal Medicine Hematology & Oncology
DX: C50.912 Malignant neoplasm of unspecified site of left female breast (principal); Z17.1 Estrogen receptor negative status [ER-]
CPT/HCPCS: 36415; 80053; 85025; 86300

== ENCOUNTER 2025-02-11 14:11 | Outpatient (CLI) | payer MEDICARE, SELFPAY ==
--- NOTE | ~2025-02-11 | DEXA_ITS ---
Bone Density Report Name: FLOYD GAUTAM Age: 69 Sex: Female Ethnicity: White Date of : 1955 Indication: postmenopausal; screening for osteoporosis; height loss; cancer; Referring Provider: ZOE CLAIRE Study: Bone densitometry was performed. Exam Date: February 11, 2025 Accession number: [id number] Bone Density: Region BMD T-score Z-score Classification AP Spine(L1-L4) 1.091 0.4 2.5 Normal Femoral Neck (Left) 0.859 0.1 1.9 Normal Total Hip (Left) 0.917 -0.2 1.3 Normal Femoral Neck (Right) 0.799 -0.4 1.4 Normal Total Hip (Right) 0.913 -0.2 1.3 Normal Total Hip Mean 0.915 -0.2 1.3 Normal World Health Organization criteria for BMD impression classify patients as: Normal (T-score at or above -1.0), Osteopenia (T-score between -1.0 and -2.5), or Osteoporosis (T-score at or below -2.5). 10-year Fracture Risk: FRAX not reported because: All T-scores for Spine Total, Hip Total, Femoral Neck at or above -1.0 Clinical Information Provided by Patient: Has the following medical conditions: Cancer Patient maximum height was 63.0 Menopause Age: 39 No regular weight bearing exercise Does not regularly consume dairy products Drinks caffeinated beverages Onset of menses at age 14 Number of children 3 Impression: The patient has normal bone mass. Discussion: BONE DENSITY IS ABOVE THE MINIMUM DESIRABLE LEVEL AT ALL SKELETAL SITES TESTED. This patient?s bone mineral density is above the minimum desirable level (T-score -1.0 or better) at all sites measured. The patient should follow a healthful lifestyle (good nutrition with adequate calcium and vitamin D, and appropriate weight-bearing exercise). Follow-Up: Consider repeating this study in 5 years or sooner if there is some new clinical indication. Reported by: AYAH on 02/11/2025 2:58:00 PM. Reviewed, dictated and finalized at location A.
== END 2025-02-11 14:12 | disposition home or self-care (01) ==
LOC: ANHFOHIMG 14:18
PROVIDERS: PCP Family Medicine
DX: Z13.820 Encounter for screening for osteoporosis (principal); Z78.0 Asymptomatic menopausal state
CPT/HCPCS: 77080